=== PATIENT | male | born 1940 | race Caucasian/White ===

== ENCOUNTER → 2017-03-20 | Emergency (ER) | payer MEDICARE, OTHER, SELFPAY | PROVIDERS: Emergency Provider Emergency Medicine; Family Provider Emergency Medicine; Visit Provider Emergency Medicine | DX: R30.0 Dysuria (principal); I25.2 Old myocardial infarction; Z95.1 Presence of aortocoronary bypass graft; I10 Essential (primary) hypertension; Z87.891 Personal history of nicotine dependence; Z79.02 Long term (current) use of antithrombotics/antiplatelets; Z79.82 Long term (current) use of aspirin; Z79.899 Other long term (current) drug therapy | CPT/HCPCS: 81001; 87086; 99282 ==

== ENCOUNTER 2017-05-01 05:46 | Inpatient (IN) | payer MEDICARE, OTHER, SELFPAY ==
[2017-05-01] VITALS (22 sets, daily range): BP systolic 108–152; BP diastolic 60–90; PULSE 50–111; RESP 17–26; TEMP 36.4–36.9; O2SAT 92–100; BMI 21.8; BMI 20.7
--- NOTE | 2017-05-01 05:54 | XR_ITS ---
XR chest 2V HISTORY: Shortness of air ITS.REASON: SOA ORDERING PHYSICIAN: Brian Atkinson MD PATIENT AGE: 77 years COMPARISON: 07/02/2016, 1216 FINDINGS: There has been a prior median sternotomy with CABG with bipolar pacemaker present. There is borderline cardiomegaly and pulmonary vessels are slightly prominent. Curly B lines are present suggesting mild CHF.. There is diffuse prominence of interstitial markings consistent with diffuse interstitial lung disease with chronic blunting of the left CP angle. There is mild thickening of the minor and major fissure as seen on the lateral view. Chronic changes are present in the left lower lobe posteriorly. In addition, there is increased density in the right middle lobe suspicious for superimposed pneumonia. IMPRESSION: 1. Chronic pleural parenchymal and interstitial changes with possible superimposed CHF. 2. Right middle lobe infiltrate/pneumonia
--- NOTE | 2017-05-01 06:20 | HMH.EDSOB ---
ED Disposition Clinical Impression: Acute exacerbation of chronic obstructive airways disease Community acquired pneumonia Qualifiers: Laterality: right Lung location: lower lobe of lung Qualified Code(s): J18.1 - Lobar pneumonia, unspecified organism Disposition: Admitted as Observation Condition on Discharge: Good - Critical Care Critical Care Time: No Attestation: On 05/01/17, the high probability of a clinically significant, sudden or life threatening deterioration of the following system(s) required my full and direct attention, intervention and personal management. The time I documented below is in addition to time spent performing reported procedures but includes the following listed in this critical care notation. Medical Decision Making - Medical Records Medical records reviewed: Yes: I reviewed the patient's medical records. Vital Signs: 05/01/17 05:46 Temperature 98.0 F Temperature Source Oral Pulse Rate [Right Brachial] 111 H Respiratory Rate 26 H Blood Pressure [Right Arm] 152/90 Blood Pressure Mean [Right Arm] 110 Blood Pressure Source [Right Arm] Automatic Cuff Blood Pressure Position [Right Arm] Supine 02 Sat by Pulse Oximetry 99 Oxygen Delivery Method Nasal Cannula Oxygen Flow Rate (LPM) 4 - Lab Data Lab results reviewed: Yes: I reviewed the patient's lab results. Lab Results 05/01/17 05:30: Troponin I 0.07 H 05/01/17 06:11: WBC 10.4, RBC 5.05, Hgb 13.2 L, Hct 43.2, MCV 85.5, MCH 26.1 L, MCHC 30.5 L, RDW 14.7, Plt Count 373, MPV 7.9, Neut % (Auto) 83.3 H, Lymph % (Auto) 10.3, Berg[place] % (Auto) 6.0, Eos % (Auto) 0.2, Baso % (Auto) 0.2, Neut # (Auto) 8.6 H, Lymph # (Auto) 1.1, Bergen # (Auto) 0.6, Eos # (Auto) 0.0, Baso # (Auto) 0.0 05/01/17 06:11: Sodium 139, Potassium 4.6, Chloride 102, Carbon Dioxide 29, Anion Gap 12.6, BUN 29 H, Creatinine 0.99, Estimated Creat Clear 60, Estimated GFR 73, Est GFR ( Amer) 89, Glucose 149 H, Calcium 8.7, Total Bilirubin 0.4, AST 37, ALT 37, Alkaline Phosphatase 87, Total Protein 7.5, Albumin 3.3 L, Globulin 4.2 H, Albumin/Globulin Ratio 0.8 L 05/01/17 06:11: Lactic Acid 1.7 Result diagrams: 05/01/17 06:11 05/01/17 06:11 Orders (Tests/Meds): ED MEDICATIONS Generic Name Dose Route Start Last Admin Trade Name Freq PRN Reason Stop Dose Admin Ceftriaxone Sodium 1 gm/ 50 mls @ 100 mls/hr 05/01/17 06:31 Sodium Chloride IV 05/01/17 07:00 ONCE ONE Discontinued Medications Generic Name Dose Route Start Last Admin Trade Name Freq PRN Reason Stop Dose Admin Albuterol/Ipratropium 3 ml 05/01/17 05:55 Duoneb 3ml Neb IH 05/01/17 05:56 ONCE ONE Furosemide 40 mg 05/01/17 06:32 Lasix 40mg/4ml Vial IV 05/01/17 06:33 ONCE ONE Azithromycin 500 mg/ Sodium 250 mls @ 250 mls/hr 05/01/17 06:32 Chloride IV 05/01/17 06:33 ONCE ONE Protocol Methylprednisolone Sodium Succinate 125 mg 05/01/17 06:31 Solu-Medrol 125mg/2ml Vial IV 05/01/17 06:32 ONCE ONE ORDERS Category Date Time Status XR chest 2V Stat Exams 05/01/17 05:54 Taken Digoxin Stat Lab 05/01/17 06:00 Received Upper Respiratory Panel, PCR Stat Lab 05/01/17 06:30 Received Blood Culture Stat Micro 05/01/17 06:11 Received - Radiology Data #1 Image(s): Chest Image Reviewed: Yes I reviewed the patient's radiology image Preliminary Findings: Abnormal (cap/chf) - ECG Data Tracing #1 I reviewed this ECG and interpreted as documented below: Arrhythmias present: sinus tach Ischemic changes: non-specific ST-T wave changes - Juan Inquiry Pt receiving controlled substance: No Resp/SOB HPI - General Chief Complaint: Shortness of Breath/Dyspnea Stated Complaint: SOA Time Seen by Provider: 05/01/17 06:20 Mode of Arrival: EMS Source of Information: Patient, EMS, Medical Record Limitations: No Limitations Description of Symptoms (Recalled from ER Triage Doc. by RN): SOA, RAN OUT OF NEBULIZER M
[2017-05-01 06:23] LABS: Basophils % 0.2 % (0.1-2.0); Eosinophils % 0.2 % (0.1-12.0); Hematocrit 43.2 % (42.0-52.0); Hemoglobin 13.2 g/dL (14.1-18.0); Lymphocytes # 1.1 K/mm3 (0.7-4.5); Lymphocytes % 10.3 K/mm3 (10-50); Mean Corpuscular HGB Conc 30.5 g/dL (31.8-35.4); Mean Corpuscular Hemoglobin 26.1 pg (27.0-31.2); Mean Corpuscular Volume 85.5 fl (80-94); Mean Platelet Volume 7.9 fl (7.4-10.4); Monocytes # 0.6 K/mm3 (0.1-1.0); Neutrophils # 8.6 K/mm3 (1.8-7.8); Neutrophils % 83.3 % (37.0-80.0); Platelet Count 373 K/mm3 (142-424); Red Blood Count 5.05 M/mm3 (4.60-6.20); Red Cell Distribution Width 14.7 % (11.5-17.5); White Blood Count 10.4 K/mm3 (4.8-10.8)
[2017-05-01 06:33] LABS: Alanine Aminotransferase 37 U/L (12-78); Albumin Level 3.3 gm/dL (3.4-5.0); Albumin/Globulin Ratio 0.8 (1.1-1.8); Alkaline Phosphatase 87 U/L (46-116); Anion Gap 12.6 mEq/L (5-15); Aspartate Amino Transferase 37 U/L (15-37); Bilirubin,Total 0.4 mg/dL (0.2-1.0); Blood Urea Nitrogen 29 mg/dL (7-18); Calcium 8.7 mg/dL (8.5-10.1); Carbon Dioxide 29 mmol/L (21.0-32.0); Chloride 102 mmol/L (98-107); Creatinine Clearance Estimated 60 mL/min (0-300); Creatinine,Serum 0.99 mg/dL (0.70-1.30); Estimated Glomerular Filt Rate 73 ml/min (>60); GFR (African American) 89 ML/MIN (>60); Globulin 4.2 gm/dl (1.3-3.2); Glucose 149 mg/dL (74-106); Potassium 4.6 mmoL/L (3.5-5.1); Sodium 139 mmol/L (136-145); Total Protein,Serum 7.5 gm/dL (6.4-8.2)
[2017-05-01 06:36] LABS: Adenovirus,PCR Not Detected (NotDetected); Bordetella Pertussis Not Detected (NotDetected); Chlamydophila Pneumoniae, PCR Not Detected (NotDetected); Coronavirus 229E Not Detected (NotDetected); Coronavirus NL63 Not Detected (NotDetected); Coronavirus OC43 Not Detected (NotDetected); Coronovirus HKU1,PCR Not Detected (NotDetected); Human Metapneumovirus Not Detected (NotDetected); Influenza A, PCR Not Detected (NotDetected); Influenza AH1, 2009 Not Detected (NotDetected); Influenza AH1, PCR Not Detected (NotDetected); Influenza AH3,PCR Not Detected (NotDetected); Influenza B, PCR Not Detected (NotDetected); Mycoplasma Pneumoniae, PCR Not Detected (NotDected); Parainfluenza 1, PCR Not Detected (NotDetected); Parainfluenza 2, PCR Not Detected (NotDetected); Parainfluenza 3, PCR Not Detected (NotDetected); Parainfluenza 4, PCR Not Detected (NotDetected); Respiratory Syncytial Virus Not Detected (NotDetected); Rhinovirus/Enterovirus Not Detected (NotDetected)
[2017-05-01 06:36] LABS: Lactic Acid 1.7 mmol/L (0.4-2.0)
[2017-05-01 06:40] LABS: Troponin I 0.07 ng/ml (0.00-0.06)
[2017-05-01 08:14] LABS: Troponin I 0.17 ng/ml (0.00-0.06)
--- NOTE | 2017-05-01 08:21 | HMH.HP ---
*Admission Date: 05/01/17 *Chief complaint: sob *History of present illness: this wm was seen by pcp in office and treated as op with copd with bronchitis - pt took meds but continued to have sx with cough and sob with some element of chest pain - pt was seen in the ed and noted to have abd cxr and was admitted [facility] History I have reviewed the patient's past medical history: Yes Medical History: Reports:: Chronic Obstructive Pulmonary Disease (COPD), Coronary Artery Disease, Hyperlipidemia, Internal Pacemaker Denies:: Diabetes Mellitus Type 1, Diabetes Mellitus Type 2 Other Surgeries: Yes: Appendectomy, Pacemaker, Other Amputation: No Fractures: No - *Social History Educational Level: Attended High School Smoking Status: Former smoker Tobacco Type: cigarettes #Yrs smoked (if former smoker): 30 Smoking End Date: 6 MONTHS Alcohol Intake: never Substance Use Type: denies use Occupational Status: retired Housing: house Household Members: spouse - Psychiatric History Expresses thoughts of harming self/others: None Suicide Plan Description: No Plan *Family Hx:: Non-contributory Review of Systems - Review of Systems Review of systems:: pertinent systems reviewed and negative unless documented below - Constitutional Reports fatigue, Reports lack of energy - Eyes Denies change in vision - ENT Reports dry mouth, Denies sore throat - *Cardiovascular Reports chest pain at rest, Reports shortness of breath - *Respiratory Reports cough, Denies coughing up blood - *Gastrointestinal Denies abdominal pain - *Genitourinary Denies blood in urine - *Musculoskeletal Reports joint pain, Denies joint swelling - Integumentary/Breasts Denies rash - *Neurologic Reports weakness, Denies seizure-like activity - Psychiatric Denies depression Meds Home Medications Medication Instructions Recorded Confirmed Type aspirin 81 mg tablet,delayed 81 mg PO DAILY 04/12/17 05/01/17 History release atorvastatin 80 mg tablet 80 mg PO QDAY 04/12/17 History carvedilol 6.25 mg tablet 6.25 mg PO BID 04/12/17 History cetirizine 10 mg capsule 10 mg PO QDAY cap 04/12/17 History clopidogrel 75 mg tablet 75 mg PO QDAY 04/12/17 History digoxin 125 mcg tablet 125 mcg PO DAILY 04/12/17 05/01/17 History furosemide 40 mg tablet 40 mg PO DAILY 04/12/17 05/01/17 History losartan 100 mg tablet 100 mg PO QDAY 04/12/17 History montelukast 10 mg tablet 10 mg PO QPM 04/12/17 History nitroglycerin 0.4 mg sublingual 0.4 mg SUBLINGUAL Q5M PRN 04/12/17 History tablet oxybutynin chloride 5 mg tablet 5 mg PO DAILY 04/12/17 05/01/17 History pantoprazole 40 mg tablet,delayed 40 mg PO QDAY 04/12/17 History release ranitidine 150 mg tablet 150 mg PO BID tab 04/12/17 History ropinirole 0.5 mg tablet 0.5 mg PO PM 04/12/17 05/01/17 History tamsulosin 0.4 mg capsule 0.4 mg PO DAILY 04/12/17 05/01/17 History Hydrocodone/Acetaminophen 10 - 325 mg PO Q6HP PRN 05/01/17 05/01/17 History [Hydrocodon-Acetaminophn 10-325] Allergies Allergy/AdvReac Type Severity Reaction Status Date / Time morphine [MORPHINE] Allergy Unknown Verified 05/01/17 05:53 Exam Vital signs and Labs for Last 24 Hours: Temp Pulse Resp BP Pulse Ox 98.4 F 50 L 22 135/84 92 L 05/01/17 07:37 05/01/17 07:37 05/01/17 07:37 05/01/17 07:37 05/01/17 07:37 I & O for Last 24 hours: Intake & Output 04/28/17 04/29/17 04/30/17 05/01/17 11:59 11:59 11:59 11:59 Weight 140 lb 2 oz - Constitutional no acute distress - *Routine HEENT Exam Head: Present: normocephalic, atraumatic Eye: Present: EOMI, PERRL. Absent: conjunctival icterus ENT: Present: mucous membranes dry - *Routine Neck Exam Present: supple. Absent: JVD - *Routine Respiratory Exam Present: rhonchi, wheezes. Absent: respiratory distress - *Routine Cardiovascular Exam Present: RRR, murmur, S4, tachycardia. Absent: JVD - *Routine Abdominal Exam Present: soft.
[2017-05-01 10:50] LABS: Troponin I 0.33 ng/ml (0.00-0.06)
[2017-05-01 13:50] LABS: Troponin I 0.57 ng/ml (0.00-0.06)
--- NOTE | 2017-05-01 14:15 | HMH.PHAVTE ---
[facility] Pharmacy VTE Monitoring - Patient Demographics Admission date: 05/01/17 Report Date: 05/01/17 Time: 14:15 Allergies/Adverse Reactions: Patient Allergies morphine [MORPHINE] Allergy (Unknown, Verified 05/01/17 05:53) Height: 1.75 m Weight: 63.56 kg Patient Problems: Current Active Problems Community acquired pneumonia (Acute) Acute exacerbation of chronic obstructive airways disease (Acute) - VTE Risk Labs: VTE Related Lab Results Hgb 13.2 g/dL (14.1-18.0) L 05/01/17 06:11 Hct 43.2 % (42.0-52.0) 05/01/17 06:11 Plt Count 373 K/mm3 (142-424) 05/01/17 06:11 BUN 29 mg/dL (7-18) H 05/01/17 06:11 Creatinine 0.99 mg/dL (0.70-1.30) 05/01/17 06:11 Estimated Creat Clear 60 mL/min (0-300) 05/01/17 06:11 Was VTE Risk Assessment Performed: Yes VTE Score: 4 VTE Risk Level: Low Risk - Prophylaxis VTE Prophylaxis Ordered?: Yes Types of VTE Prophylaxis: TEDS Knee High Location of Applied Device: Bilateral Lower Extremeties
--- NOTE | 2017-05-01 14:16 | IR_ITS ---
CARDIAC CATHETERIZATION DATE OF CATHETERIZATION:05/01/2017 2:19 PM PROCEDURES: 1. Left heart catheterization 2. Left ventriculogram 3. Selective coronary angiogram 4. Selective engagement of the saphenous vein graft to the circumflex artery 5. Selective engagement of the saphenous vein graft to the right coronary artery 6. Drug-eluting stent deployment to the saphenous vein graft supplying the dominant right coronary artery INDICATION FOR TEST: 1. Acute non-ST elevation myocardial infarction 2. Coronary artery disease 3. History of coronary bypass surgery Informed consent was obtained prior to the procedure. COMPLICATIONS: None ESTIMATED BLOOD LOSS: Less than 10 ml. TECHNIQUE: One percent lidocaine used to anesthetize the right anterior aspect of the wrist. The right radial artery was accessed via the Seldinger technique. A 6 Guinean sheath was placed in the right radial artery. 2.5 mg of verapamil, 800 mcg of nitroglycerin and 5000 U Heparin were given through the arterial sheath. The trap catheter was also used to perform left heart catheterization left ventriculogram and selective coronary angiogram. The same catheter was used to cannulate the 2 saphenous vein grafts. At the end of the diagnostic angiogram and additional 2000 units of heparin was administered intravenously producing an ACT of 349 seconds. An NoiseFree right guide catheter was used intubate the saphenous vein graft to the right coronary artery and a BMW wire was placed distally. A 3.5 x 8 mm resolute Irvin stent was deployed at 22 debbie reducing the 80-90% concentric stenosis to 0%. KEENA-3 flow was present before and after the procedure. At the end of the procedure the sheath was removed good hemostasis was achieved using TR banding patient transferred the postop holding area in stable condition ANGIOGRAPHIC RESULTS: 1. The left main artery normal 2. The left anterior descending artery is occluded after a first septal concrete pile driver operator and first small diagonal artery 3. The circumflex artery is nondominant and has proximal to mid vessel 30% stenoses 4. The right coronary artery dominant vessel and proximally occluded 5. The MCGEE ventriculogram reveals severe left ventricular dilatation with an akinetic aneurysmal anterior wall cement ejection fraction is 20% 6. The left ventricular end-diastolic pressure 20 mmHg 7. The COURTNEY was not engaged but was known to be patent with slow flow supplying an aneurysmal akinetic anterior wall 8. The saphenous vein graft to the circumflex artery was ostially occluded 9. The saphenous vein graft to the dominant right coronary artery has proximal 20% stenoses followed by a stent which has a proximal concentric 40% stenosis and a distal 80% concentric stenosis representing in-stent restenosis. Distally the posterior descending artery and posterior lateral ventricular branch are large branches and patent IMPRESSION: 1. Coronary artery disease as described above coronary arteries. 2. Successful stenting of the saphenous vein graft to the right coronary artery severe disease reduced to 0% with 1 drug-eluting stent 3. 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 Severely reduced ejection fraction PLAN: 1. Aspirin Plavix 2. Avoidance of tobacco products 3. LDL less than 55 4. Date of therapy for systolic heart failure 5. Cardiac Rehabilitation
[2017-05-01 15:32] LABS: CATHL Activated Clotting Time 349 SEC (74-125)
[2017-05-01 19:38] LABS: Troponin I 0.81 ng/ml (0.00-0.06)
[2017-05-01 23:14] LABS: Troponin I 0.76 ng/ml (0.00-0.06)
[2017-05-02] VITALS (25 sets, daily range): BP systolic 109–132; BP diastolic 52–73; PULSE 67–93; RESP 15–23; TEMP 36.6–37.3; O2SAT 90–100
--- NOTE | 2017-05-02 03:15 | PC.NURSE ---
PT HAS RESTED WELL THIS SHIFT. HAS NOT C/O ANY SOA. PT IS ON ROOM AIR AT THIS TIME WITH SATS OF MID TO UPPER 90S. PT HAS OCCASIONAL DROP IN O2 SAT, BUT RECOVERS WITHOUT DIFFICULTY. LUNGS NOTED TO HAVE WHEEZING AND RHONCHI T/O. PT REMAINS ON TELEMETRY. PACER SPIKES VISIBLE AT TIMES. OCCASIONAL PVC'S AND PAC'S NOTED. PT APPEARS TO BE JUNCTIONAL @ TIMES. CATH SITE TO (R) RADIAL. DRESSING C/D/I. V/S HAVE REMAINED STABLE. NO OTHER CONCERNS AT THIS TIME. WILL CONTINUE TO MONITOR.
[2017-05-02 06:21] LABS: Eosinophils % 0.4 % (0.1-12.0); Hematocrit 36.3 % (42.0-52.0); Lymphocytes # 0.4 K/mm3 (0.7-4.5); Lymphocytes % 5.8 K/mm3 (10-50); Mean Corpuscular HGB Conc 31.1 g/dL (31.8-35.4); Mean Corpuscular Hemoglobin 25.7 pg (27.0-31.2); Mean Corpuscular Volume 82.9 fl (80-94); Mean Platelet Volume 7.9 fl (7.4-10.4); Monocytes # 0.3 K/mm3 (0.1-1.0); Monocytes % 3.5 % (1.7-9.3); Neutrophils # 6.3 K/mm3 (1.8-7.8); Neutrophils % 90.3 % (37.0-80.0); Platelet Count 279 K/mm3 (142-424); Red Blood Count 4.37 M/mm3 (4.60-6.20); Red Cell Distribution Width 14.9 % (11.5-17.5)
[2017-05-02 06:32] LABS: Hemoglobin 11.3 g/dL (14.1-18.0)
[2017-05-02 06:34] LABS: MANUAL DIFFERENTIAL MANUAL DIFFERENTIAL (MANUAL DIFF)
[2017-05-02 06:40] LABS: Anion Gap 8.8 mEq/L (5-15); Blood Urea Nitrogen 34 mg/dL (7-18); Carbon Dioxide 33 mmol/L (21.0-32.0); Chloride 106 mmol/L (98-107); Creatinine Clearance Estimated 56 mL/min (0-300); Creatinine,Serum 0.71 mg/dL (0.70-1.30); Estimated Glomerular Filt Rate 108 ml/min (>60); GFR (African American) 131 ML/MIN (>60); Glucose 122 mg/dL (74-106); Potassium 3.8 mmoL/L (3.5-5.1); Sodium 144 mmol/L (136-145)
[2017-05-02 06:57] LABS: Anisocytosis 1+; Hypochromasia 2+; Lymphocytes % 5 % (10-50); Neutrophils % 90 % (42-76); Platelet Estimate Normal; Poikilocytosis 1+; Polychromasia 2+; Rouleaux 1+; Total Cells Counted 100
--- NOTE | 2017-05-02 08:51 | P.PN_ITS ---
Internal Medicine - PN: Subj *Date: 05/02/17 *Time: 08:48 Interval history: doing better this am - had stent yesterday Exam Vital signs and Labs for Last 24 Hours: Temp Pulse Resp BP Pulse Ox 98 F 84 22 131/69 100 05/02/17 08:00 05/02/17 08:00 05/02/17 08:00 05/02/17 08:00 05/02/17 08:00 Laboratory Results - last 24 hr 05/01/17 10:16: Troponin I 0.33 H 05/01/17 13:20: Troponin I 0.57 H 05/01/17 15:09: Activated Clotting Time 349 H* 05/01/17 18:57: Troponin I 0.81 H 05/01/17 22:02: Troponin I 0.76 H 05/02/17 05:40: WBC 7.0 D, RBC 4.37 L, Hgb 11.3 L D, Hct 36.3 L, MCV 82.9, MCH 25.7 L, MCHC 31.1 L, RDW 14.9, Plt Count 279 D, MPV 7.9, Neut % (Auto) 90.3 H, Lymph % (Auto) 5.8 L, Tillman % (Auto) 3.5, Eos % (Auto) 0.4, Baso % (Auto) 0.0 L, Neut # (Auto) 6.3, Lymph # (Auto) 0.4 L, Tillman # (Auto) 0.3, Eos # (Auto) 0.0, Baso # (Auto) 0.0, Total Counted 100, Neutrophils % (Manual) 90 H, Band Neutrophils % 5.0, Lymphocytes % (Manual) 5 L, Platelet Estimate Normal, Polychromasia 2+, Hypochromasia 2+, Poikilocytosis 1+, Anisocytosis 1+, Rouleaux 1+ 05/02/17 05:40: Sodium 144, Potassium 3.8, Chloride 106, Carbon Dioxide 33 H, Anion Gap 8.8, BUN 34 H, Creatinine 0.71 D, Estimated Creat Clear 56, Estimated GFR 108, Est GFR ( Amer) 131 D, Glucose 122 H I & O for Last 24 hours: Intake & Output 01/25/18 01/26/18 01/27/18 01/28/18 11:59 11:59 11:59 11:59 Intake Total 1804 / 1804 Output Total 750 / 750 650 / 650 Balance -750 / -750 1154 / 1154 Weight 140 lb 2.013 oz 141 lb 3 oz - Constitutional no acute distress - *Routine HEENT Exam Head: Present: normocephalic Eye: Present: EOMI, PERRL ENT: Present: mucous membranes dry - *Routine Neck Exam Absent: JVD - *Routine Respiratory Exam Present: wheezes. Absent: respiratory distress - *Routine Cardiovascular Exam Present: murmur - *Routine Abdominal Exam Present: soft - *Routine Extremities Exam Present: full ROM - *Routine Skin Exam Present: intact - *Routine Neurological Exam Present: alert, oriented X3, CN II-XII intact - Routine Psychiatric Exam Present: normal affect Assessment and Plan (1) Community acquired pneumonia Current visit: Yes Status: Acute Qualifiers: Laterality: right Lung location: lower lobe of lung Qualified Code(s): J18.1 - Lobar pneumonia, unspecified organism Category: Medical Code(s): J18.9 - Pneumonia, unspecified organism (2) Acute exacerbation of chronic obstructive airways disease Current visit: Yes Status: Acute Category: Medical Code(s): J44.1 - Chronic obstructive pulmonary disease with (acute) exacerbation (3) Non-STEMI (non-ST elevated myocardial infarction) Current visit: Yes Status: Acute Category: Medical Code(s): I21.4 - Non- ST elevation (NSTEMI) myocardial infarction
--- NOTE | 2017-05-02 19:24 | PC.NURSE ---
PATIENT HAS BEEN RESTING IN BED T/O SHIFT. VSS , DENIES PAIN AT THIS TIME. CALL LIGHT WITHIN REACH WILL CONTINUE TO MONITOR
[2017-05-03] VITALS (17 sets, daily range): BP systolic 100–137; BP diastolic 56–77; PULSE 60–106; RESP 19–22; TEMP 36.3–36.9; O2SAT 88–100; BMI 20.2
--- NOTE | 2017-05-03 04:04 | XR_ITS ---
XR chest portable Ordering Physician: Brian Atkinson MD Patient Age: 77 years: Male HISTORY: ITS.REASON: chest pain . Recent pacemaker placement TECHNIQUE: AP portable supine chest short of breath chest pain recent heart catheter. COMPARISON : PA & lateral chest 05/01/2017 FINDINGS. Right chest On today's chest subtle additional density noted throughout the right midlung towards right base. Suspect mild diffuse airspace disease superimposed upon mild chronic changes here. Fluid along the major fissure. Contribute to this appearance is well and no blunting right CP angle reflecting small pleural effusion Septal lines are slightly more evident at the periphery the right lung base which may reflect this infiltrate or possibly mild underlying CHF. There are small bilateral pleural effusions left more evident than right. Left chest coarsening markings towards left base similar to previous study. Blunting left CP angle reflecting chronic pleural changes and possibly with small left pleural effusion as well but pleural calcification again noted. Long-standing, as seen nicely on previous May 2016 CT chest. Underlying COPD.. Heart is upper normal in size. There is suggestion of overlying likely A ED , with monitoring &/ defibrillator padsNoted. Pacemaker overlies left chest with atrial and ventricular leads intact and unchanged since 05/01/2017. Clips at the left upper chest may reflect recent pacemaker placement. . Sternotomy from prior CABG IMPRESSION. Underlying COPD and chronic changes bilateral. Slight increased density right midlung towards right base, may reflect subtle airspace disease superimposed upon chronic changes. Fluid along the major could also contribute this density. Again note septal lines particularly towards the right lung base could reflect mild interstitial pulmonary edema versus minimal interstitial infiltrate Coarse markings LLL / left lung base, similar to yesterday's study. Chronic changes with with possible mild superimposed infiltrate Small bilateral pleural effusions.
[2017-05-03 04:33] LABS: Eosinophils % 0.3 % (0.1-12.0); Hematocrit 43.7 % (42.0-52.0); Lymphocytes % 9.9 K/mm3 (10-50); Mean Corpuscular HGB Conc 30.5 g/dL (31.8-35.4); Mean Corpuscular Hemoglobin 25.9 pg (27.0-31.2); Mean Corpuscular Volume 84.8 fl (80-94); Mean Platelet Volume 7.9 fl (7.4-10.4); Monocytes # 0.5 K/mm3 (0.1-1.0); Monocytes % 4.9 % (1.7-9.3); Neutrophils # 8.5 K/mm3 (1.8-7.8); Neutrophils % 84.9 % (37.0-80.0); Platelet Count 374 K/mm3 (142-424); Red Blood Count 5.15 M/mm3 (4.60-6.20); Red Cell Distribution Width 14.8 % (11.5-17.5)
[2017-05-03 04:35] LABS: Hemoglobin 13.3 g/dL (14.1-18.0)
--- NOTE | 2017-05-03 04:35 | HMH.RR ---
Acute Rapid Response Note - Subjective Date Responded: 05/03/17 Time Responded: 04:35 Provider Note: Rapid response called due to respiratory distress. Nurse reports that at 345 she noticed the patient having labored respirations with accessory muscle use, tachypnea, tachycardia, and duskiness. He was placed on a nonrebreather mask. The patient reports that he has some discomfort in his left lower anterior chest when he lays in certain directions. He denies any other pain. He is already being treated for pneumonia and CHF. He just had cardiac stent placed yesterday. Respiratory therapist reports his last nebulizer treatment was at 9 PM. The patient is tachypneic with accessory muscle use. He is on a nonrebreather mask with a pulse oximetry of 98%. Heart rate is in the 120s and 130s. youth nutritional monitor shows sinus tachycardia with premature contractions, probable PACs. He is awake and alert and answers questions appropriately. Lungs have rhonchi. Heart is tachycardic with no definite murmurs. EKG shows sinus tachycardia with premature atrial contractions. Nonspecific ST-T wave changes. Negative for STEMI. Chest x-ray shows persistence of right middle lobe infiltrate, slight interval worsening from May 01. Curly B-lines and interstitial markings consistent with congestive heart failure, slightly worse than May 01. Chronic scarring at the left base. I discussed the case with Dr. Atkinson. The patient will be given a dose of Lovenox to cover for the possibility of pulmonary embolism. He is already on treatment for pneumonia. He will be given a one-time dose of Lasix 80 mg IV. Laboratories, arterial blood gases ordered. Dr. Atkinson states that he will address the possibility of a CT angiogram of the chest later in the morning. Nebulizer treatment ordered as well. - Objective Findings: Vital Signs - Last 4 Hours Temperature 97.4 F L 05/03/17 00:00 Temperature Source Oral 05/03/17 00:00 Pulse Rate 79 05/03/17 00:00 Respiratory Rate 20 05/03/17 00:00 Blood Pressure 127/67 05/03/17 00:00 Blood Pressure Mean 87 05/03/17 00:00 Blood Pressure Source Automatic Cuff 05/03/17 00:00 Blood Pressure Position Supine 05/03/17 00:00 02 Sat by Pulse Oximetry 88 L 05/03/17 03:28 Oxygen Delivery Method 05/03/17 03:28 Oxygen Flow Rate (LPM) 3 05/03/17 02:00 My Orders Category Date Time Status Comprehensive Metabolic Panel Stat Lab 05/03/17 04:15 Received Rapid Response Exam - General General appearance: alert, in no apparent distress
--- NOTE | 2017-05-03 04:39 | P.PN_ITS ---
Acute Rapid Response Note - Subjective Date Responded: 05/03/17 Time Responded: 04:35 Provider Note: Rapid response called due to respiratory distress. Nurse reports that at 345 she noticed the patient having labored respirations with accessory muscle use, tachypnea, tachycardia, and duskiness. He was placed on a nonrebreather mask. The patient reports that he has some discomfort in his left lower anterior chest when he lays in certain directions. He denies any other pain. He is already being treated for pneumonia and CHF. He just had cardiac stent placed yesterday. Respiratory therapist reports his last nebulizer treatment was at 9 PM. The patient is tachypneic with accessory muscle use. He is on a nonrebreather mask with a pulse oximetry of 98%. Heart rate is in the 120s and 130s. court monitor shows sinus tachycardia with premature contractions, probable PACs. He is awake and alert and answers questions appropriately. Lungs have rhonchi. Heart is tachycardic with no definite murmurs. EKG shows sinus tachycardia with premature atrial contractions. Nonspecific ST- T wave changes. Negative for STEMI. Chest x-ray shows persistence of right middle lobe infiltrate, slight interval worsening from May 01. Curly B-lines and interstitial markings consistent with congestive heart failure, slightly worse than May 01. Chronic scarring at the left base. I discussed the case with Dr. Atkinson. The patient will be given a dose of Lovenox to cover for the possibility of pulmonary embolism. He is already on treatment for pneumonia. He will be given a one-time dose of Lasix 80 mg IV. Laboratories, arterial blood gases ordered. Dr. Atkinson states that he will address the possibility of a CT angiogram of the chest later in the morning. Nebulizer treatment ordered as well. - Objective Findings: Vital Signs - Last 4 Hours Temperature 97.4 F L 05/03/17 00:00 Temperature Source Oral 05/03/17 00:00 Pulse Rate 79 05/03/17 00:00 Respiratory Rate 20 05/03/17 00:00 Blood Pressure 127/67 05/03/17 00:00 Blood Pressure Mean 87 05/03/17 00:00 Blood Pressure Source Automatic Cuff 05/03/17 00:00 Blood Pressure Position Supine 05/03/17 00:00 02 Sat by Pulse Oximetry 88 L 05/03/17 03:28 Oxygen Delivery Method 05/03/17 03:28 Oxygen Flow Rate (LPM) 3 05/03/17 02:00 My Orders 3 Category Date Time Status Comprehensive Metabolic Panel Stat Lab 05/03/17 04:15 Received Rapid Response Exam - General General appearance: alert, in no apparent distress
[2017-05-03 04:48] LABS: ABG Base Excess 5.3 mmol/L (-2.4-2.3); ABG HCO3 31.3 mmhg (22.0-26.0); ABG Oxygen Saturation 97 % (90-100); ABG PH 7.33 mmol/L (7.35-7.45); ABG PO2 104.2 mmhg (80-100); ABG TCO2 33.2 mmhg (23-27)
[2017-05-03 04:54] LABS: Anion Gap 8.4 mEq/L (5-15); Bilirubin,Total 0.4 mg/dL (0.2-1.0); Blood Urea Nitrogen 35 mg/dL (7-18); CKMB Relative Index 3.4 U/L (0-4.0); Calcium 7.9 mg/dL (8.5-10.1); Carbon Dioxide 35 mmol/L (21.0-32.0); Chloride 104 mmol/L (98-107); Creatine Kinase 82 U/L (39-308); Creatine Kinase MB 2.8 mg/ml (0.0-3.6); Creatinine Clearance Estimated 57 mL/min (0-300); Estimated Glomerular Filt Rate 94 ml/min (>60); GFR (African American) 114 ML/MIN (>60); Potassium 4.4 mmoL/L (3.5-5.1); Sodium 143 mmol/L (136-145); Troponin I 0.33 ng/ml (0.00-0.06)
[2017-05-03 04:55] LABS: Alanine Aminotransferase 39 U/L (12-78); Albumin Level 3.1 gm/dL (3.4-5.0); Albumin/Globulin Ratio 0.8 (1.1-1.8); Alkaline Phosphatase 80 U/L (46-116); Aspartate Amino Transferase 22 U/L (15-37); Total Protein,Serum 7.1 gm/dL (6.4-8.2)
[2017-05-03 05:07] LABS: Glucose 148 mg/dL (74-106)
--- NOTE | 2017-05-03 05:34 | PC.NURSE ---
pt rested brief periods this shift, denied chest pain at 1999, vss, telemetry running normal sinus, pt maintaining O2 sats at or above 90 on 3L NC, rhonchi and wheezes present in lung house, bowel sounds active. Upon reassessment at 344 pt stated he was very SOB, pt appeared pallor with mottling, skin was cool and diaphoretic, pt c/o chest pain 7/10 to the left anterior chest, pt appears very anxious and states something is not right, rapid response called at 399, team responded at 402, orders obtained and pt stabilized, pt currently on 100% non rebreather, call light in reach, will continue to monitor pt status and laboratory values.
--- NOTE | 2017-05-03 08:22 | HMH.CARDPN2 ---
Subjective PN (PG) Date: 05/03/17 Time: 08:22 Principal diagnosis: NSTEMI Interval history: 77-year-old white male with known coronary artery disease, ischemic cardio myopathy and AICD was admitted over the weekend for non-ST elevation [place] which time he underwent cardiac catheterization and stenting to saphenous vein graft to the right coronary artery. Last evening/early this a.m. the patient went into respiratory arrest with evidence of congestive heart failure. He responded well to IV Lasix and BiPAP therapy. Patient states he is breathing much better this morning BiPAP is in place. He put out over 2 L of fluid since about 2:00 this morning in response to IV Lasix. PN Exam ([facility] Owned) Vital signs: Temp Pulse Resp BP Pulse Ox 98.4 F 82 22 137/77 100 05/03/17 07:31 05/03/17 07:31 05/03/17 07:31 05/03/17 07:31 05/03/17 07:31 - Routine Neck Exam Absent: JVD - Routine Respiratory Exam Comments: Diminished breath sounds bilaterally with no appreciable rales or wheezing at this time - Routine Cardiovascular Exam Present: RRR. Absent: murmur, gallop A/P Progress Note ([facility] Owned) (1) Non-STEMI (non-ST elevated myocardial infarction) Status: Acute Current Visit: Yes (2) Chronic obstructive lung disease Status: Acute Current Visit: No (3) Stented coronary artery Status: Acute Current Visit: No (4) Systolic heart failure Status: Acute Assessment and plan: We will begin standard therapy for congestive heart failure including continuing digoxin, starting spironolactone, Coreg and COOKIE or ARB therapy. Current Visit: No (5) Coronary arteriosclerosis Status: Chronic Assessment and plan: DAPT due to ZAIRA placement. Current Visit: No
--- NOTE | 2017-05-03 08:26 | P.PN_ITS ---
Subjective PN (PG) Date: 05/03/17 Time: 08:22 Principal diagnosis: NSTEMI Interval history: 77-year-old white male with known coronary artery disease, ischemic cardio myopathy and AICD was admitted over the weekend for non-ST elevation [place] which time he underwent cardiac catheterization and stenting to saphenous vein graft to the right coronary artery. Last evening/early this a.m. the patient went into respiratory arrest with evidence of congestive heart failure. He responded well to IV Lasix and BiPAP therapy. Patient states he is breathing much better this morning BiPAP is in place. He put out over 2 L of fluid since about 2:00 this morning in response to IV Lasix. PN Exam ([facility] Owned) Vital signs: Temp Pulse Resp BP Pulse Ox 98.4 F 82 22 137/77 100 05/03/17 07:31 05/03/17 07:31 05/03/17 07:31 05/03/17 07:31 05/03/17 07:31 - Routine Neck Exam Absent: JVD - Routine Respiratory Exam Comments: Diminished breath sounds bilaterally with no appreciable rales or wheezing at this time - Routine Cardiovascular Exam Present: RRR. Absent: murmur, gallop A/P Progress Note ([facility] Owned) (1) Non-STEMI (non-ST elevated myocardial infarction) Status: Acute Current Visit: Yes (2) Chronic obstructive lung disease Status: Acute Current Visit: No (3) Stented coronary artery Status: Acute Current Visit: No (4) Systolic heart failure Status: Acute Assessment and plan: We will begin standard therapy for congestive heart failure including continuing digoxin, starting spironolactone, Coreg and COOKIE or ARB therapy. Current Visit: No (5) Coronary arteriosclerosis Status: Chronic Assessment and plan: DAPT due to ZAIRA placement. Current Visit: No
--- NOTE | 2017-05-03 10:33 | PC.NURSE ---
IN ROOM WITH MD WHEN ROUNDED. MD STATED TO TAKE PT OFF BIPAP AND TRY ROOM AIR IF PT NEEDED O2 TO APPLY. BIPAP WAS REMOVED. PT ON ROOM AIR TILL O2 SAT FELL BELOW 90. PT NOW ON 2LNC AND SAT ARE IN LOW 90'S.
[2017-05-03 11:40] LABS: ABG Base Excess 10.6 mmol/L (-2.4-2.3); ABG HCO3 34.3 mmhg (22.0-26.0); ABG Oxygen Saturation 97 % (90-100); ABG PCO2 48.8 mmhg (35.0-45.0); ABG PH 7.47 mmol/L (7.35-7.45); ABG PO2 90.7 mmhg (80-100); ABG TCO2 35.8 mmhg (23-27)
[2017-05-03 11:41] LABS: Oxygen 2 LPM %
--- NOTE | 2017-05-03 13:29 | HMH.ACPN2 ---
Internal Medicine - PN: Subj *Date: 05/03/17 *Time: 13:30 Exam Vital signs and Labs for Last 24 Hours: Temp Pulse Resp BP Pulse Ox 98.4 F 87 22 112/64 95 05/03/17 07:31 05/03/17 12:37 05/03/17 11:41 05/03/17 11:41 05/03/17 12:35 Laboratory Results - last 24 hr 05/03/17 04:15: Sodium 143, Potassium 4.4, Chloride 104, Carbon Dioxide 35 H, Anion Gap 8.4, BUN 35 H, Creatinine 0.80, Estimated Creat Clear 57, Estimated GFR 94, Est GFR ( Amer) 114, Glucose 148 H D, Calcium 7.9 L, Total Bilirubin 0.4, AST 22 D, ALT 39, Alkaline Phosphatase 80, Total Creatine Kinase 82, CK-MB (CK-2) 2.8, CK-MB (CK-2) Rel Index 3.4, Troponin I 0.33 H, Total Protein 7.1, Albumin 3.1 L, Globulin 4.0 H, Albumin/Globulin Ratio 0.8 L 05/03/17 04:15: WBC 10.0 D, RBC 5.15, Hgb 13.3 L D, Hct 43.7, MCV 84.8, MCH 25.9 L, MCHC 30.5 L, RDW 14.8, Plt Count 374 D, MPV 7.9, Neut % (Auto) 84.9 H, Lymph % (Auto) 9.9 L, [place] % (Auto) 4.9, Eos % (Auto) 0.3, Baso % (Auto) 0.0 L, Neut # (Auto) 8.5 H, Lymph # (Auto) 1.0, [place] # (Auto) 0.5, Eos # (Auto) 0.0, Baso # (Auto) 0.0 05/03/17 04:15: B-Natriuretic Peptide 1590 H 05/03/17 04:46: ABG pH 7.33 L, ABG pCO2 61.0 H, ABG pO2 104.2 H, ABG HCO3 31.3 H, ABG Total CO2 33.2 H, ABG O2 Saturation 97, ABG Base Excess 5.3 H 05/03/17 11:30: Specimen Source R. brachial, O2 % 2 lpm, ABG pH 7.47 H, ABG pCO2 48.8 H, ABG pO2 90.7, ABG HCO3 34.3 H, ABG Total CO2 35.8 H, ABG O2 Saturation 97, ABG Base Excess 10.6 H, Dustin Test N/a I & O for Last 24 hours: Intake & Output 05/01/17 05/02/17 05/03/17 05/04/17 11:59 11:59 11:59 11:59 Intake Total 1804 / 1804 800 / 800 Output Total 750 / 750 650 / 650 2825 / 2825 Balance -750 / -750 1154 / 1154 -2024 / -2024 Weight 140 lb 2.013 oz 141 lb 3 oz 137 lb 1 oz - Constitutional no acute distress - *Routine HEENT Exam Head: Present: normocephalic Eye: Present: PERRL ENT: Present: mucous membranes moist - *Routine Neck Exam Present: supple, full ROM - *Routine Respiratory Exam Present: wheezes, diminished air movement - *Routine Cardiovascular Exam Present: RRR - *Routine Abdominal Exam Present: soft - *Routine Extremities Exam Present: full ROM - *Routine Skin Exam Present: intact, dry - *Routine Neurological Exam Present: alert, oriented X3 - Routine Psychiatric Exam Present: normal affect, normal thought process Assessment and Plan (1) Non-STEMI (non-ST elevated myocardial infarction) Current visit: Yes Status: Acute Category: Medical Code(s): I21.4 - Non-ST elevation (NSTEMI) myocardial infarction (2) Chronic obstructive lung disease Current visit: No Status: Acute Qualifiers: COPD type: chronic bronchitis Category: Medical Code(s): J44.9 - Chronic obstructive pulmonary disease, unspecified (3) Stented coronary artery Current visit: No Status: Acute Category: Surgical Code(s): Z95.5 - Presence of coronary angioplasty implant and graft (4) Systolic heart failure Current visit: No Status: Acute Qualifiers: Heart failure chronicity: chronic Qualified Code(s): I50.22 - Chronic systolic (congestive) heart failure Category: Medical Code(s): I50.20 - Unspecified systolic (congestive) heart failure (5) Coronary arteriosclerosis Current visit: No Status: Chronic Category: Medical Code(s): I25.10 - Atherosclerotic heart disease of [place] coronary artery without angina pectoris
--- NOTE | 2017-05-03 19:05 | PC.NURSE ---
pt has tolerated o2 nc at 2l well this shift. no changes from previous assessment. pt was up to chair throughout shift. ambulates well. call light in reach. will continue to monitor pt condition. will give report to on coming nurse.
[2017-05-04] VITALS: BP 118/58; PULSE 56; PULSE 70; RESP 17; TEMP 36.5; O2SAT 97
[2017-05-04 04:00] VITALS: BP 119/57; PULSE 67; PULSE 70; RESP 20; TEMP 36.4; O2SAT 95
--- NOTE | 2017-05-04 08:07 | PC.NURSE ---
TOLERATED 2LNC WELL. R RADIAL DRESSING NOTED CDI, NO S/S OF INFECTION. NO COMPLAINTS STATED. SLEPT WELL. VSS. WILL CONTINUE TO MONITOR.
--- NOTE | 2017-05-04 08:25 | HMH.DCSUM ---
General - General Admission date: 05/01/17 Discharge date: 05/04/17 HPI HPI: this wm was seen by pcp in office and treated as op with copd with bronchitis - pt took meds but continued to have sx with cough and sob with some element of chest pain - pt was seen in the ed and noted to have abd cxr and was admitted Objective Vital signs: Temp Pulse Resp BP Pulse Ox 97.5 F L 67 20 119/57 95 05/04/17 04:00 05/04/17 04:00 05/04/17 04:00 05/04/17 04:00 05/04/17 04:00 no acute distress - *Routine HEENT Exam Head: Present: normocephalic Eye: Present: EOMI, PERRL ENT: Present: mucous membranes dry - *Routine Neck Exam Present: supple. Absent: JVD - *Routine Respiratory Exam Present: diminished air movement. Absent: respiratory distress - *Routine Cardiovascular Exam Absent: murmur - *Routine Abdominal Exam Present: soft. Absent: tenderness, distended - *Routine Extremities Exam Present: cyanosis - *Routine Neurological Exam Present: oriented X3, CN II-XII intact - Routine Psychiatric Exam Present: normal affect Hospital Course Hospital Course: pt had episode of chest pain and had elevated troponin and had card cath by dr viramontes with stent and has been doing ok with 1 episode of chf and improved with copd and bronchial illness - Coronary artery disease as described above coronary arteries. 2. Successful stenting of the saphenous vein graft to the right coronary artery severe disease reduced to 0% with 1 drug-eluting stent 3. 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 Severely reduced ejection fraction PLAN: 1. Aspirin Plavix 2. Avoidance of tobacco products 3. LDL less than 55 4. Date of therapy for systolic heart failure 5. Cardiac Rehabilitation Results Labs on day of discharge: Labs from last 24 hours 05/03/17 11:30 Specimen Source R. brachial O2 % 2 lpm ABG pH 7.47 H ABG pCO2 48.8 H ABG pO2 90.7 ABG HCO3 34.3 H ABG Total CO2 35.8 H ABG O2 Saturation 97 ABG Base Excess 10.6 H Dustin Test N/a DS: Diagnosis - Discharge Diagnosis (1) Community acquired pneumonia Status: Acute (2) Acute exacerbation of chronic obstructive airways disease Status: Acute (3) Non-STEMI (non-ST elevated myocardial infarction) Status: Acute Meds Home Medications Medication Instructions Recorded Confirmed Type aspirin 81 mg tablet,delayed 81 mg PO DAILY 04/12/17 05/01/17 History release digoxin 125 mcg tablet 125 mcg PO DAILY 04/12/17 05/01/17 History furosemide 40 mg tablet 40 mg PO DAILY 04/12/17 05/01/17 History nitroglycerin 0.4 mg sublingual 0.4 mg SUBLINGUAL Q5M PRN 04/12/17 05/02/17 History tablet oxybutynin chloride 5 mg tablet 5 mg PO DAILY 04/12/17 05/01/17 History ropinirole 0.5 mg tablet 0.5 mg PO PM 04/12/17 05/01/17 History tamsulosin 0.4 mg capsule 0.4 mg PO DAILY 04/12/17 05/01/17 History Hydrocodone/Acetaminophen 10 - 325 mg PO Q6HP PRN 05/01/17 05/01/17 History [Hydrocodon-Acetaminophn 10-325] Allergies Allergy/AdvReac Type Severity Reaction Status Date / Time morphine [MORPHINE] Allergy Unknown Verified 05/01/17 05:53 Discharge Plan - Patient Discharge Instructions ACTIVITY: Continue current activity DIET: continue same diet - Follow up Plan Disposition: Home, Self-[facility] Medications: Home Medications Medication Instructions Recorded Confirmed Type aspirin 81 mg tablet,delayed 81 mg PO DAILY 04/12/17 05/01/17 History release digoxin 125 mcg tablet 125 mcg PO DAILY 04/12/17 05/01/17 History furosemide 40 mg tablet 40 mg PO DAILY 04/12/17 05/01/17 History nitroglycerin 0.4 mg sublingual 0.4 mg SUBLINGUAL Q5M PRN 04/12/17 05/02/17 History tablet oxybutynin chloride 5 mg tablet 5 mg PO DAILY 04/12/17
[2017-05-04 08:40] VITALS: BP 128/59; PULSE 73; RESP 20; TEMP 36.4; O2SAT 96
--- NOTE | 2017-05-04 09:49 | HMH.CARDPN2 ---
Subjective PN (PG) Date: 05/04/17 Time: 09:49 Principal diagnosis: NSTEMI Interval history: 77-year-old white male in bedside chair in no acute distress. Denies any chest pain or shortness of breath overnight. States he is going home per Dr. Atkinson today. PN Exam ([facility]ed) Vital signs: Temp Pulse Resp BP Pulse Ox 97.6 F 73 20 128/59 96 05/04/17 08:40 05/04/17 08:40 05/04/17 08:40 05/04/17 08:40 05/04/17 08:40 - Routine Respiratory Exam Comments: Improved breath sounds without rales or inspiratory wheezing. Slight end expiratory wheezing noted. - Routine Cardiovascular Exam Present: RRR, murmur A/P Progress Note ([facility]ed) (1) Non-STEMI (non-ST elevated myocardial infarction) Status: Acute Assessment and plan: Medically stable. Okay for discharge home from cardiology standpoint. Continue aspirin and Plavix therapy. We will see him back in 1-2 weeks. Current Visit: Yes (2) Chronic obstructive lung disease Status: Acute Current Visit: No (3) Stented coronary artery Status: Acute Current Visit: No (4) Systolic heart failure Status: Acute Assessment and plan: Clinically stable at this time with [place] Heart Association class III. She is on standard therapy with COOKIE inhibitor, Coreg, Lasix, digoxin, spironolactone. Current Visit: No (5) Coronary arteriosclerosis Status: Chronic Assessment and plan: Stable no chest pain. Continue dual antiplatelet therapy. Current Visit: No
--- NOTE | 2017-05-04 09:52 | P.PN_ITS ---
Subjective PN (PG) Date: 05/04/17 Time: 09:49 Principal diagnosis: NSTEMI Interval history: 77-year-old white male in bedside chair in no acute distress. Denies any chest pain or shortness of breath overnight. States he is going home per Dr. Atkinson today. PN Exam ([facility] Owned) Vital signs: Temp Pulse Resp BP Pulse Ox 97.6 F 73 20 128/59 96 05/04/17 08:40 05/04/17 08:40 05/04/17 08:40 05/04/17 08:40 05/04/17 08:40 - Routine Respiratory Exam Comments: Improved breath sounds without rales or inspiratory wheezing. Slight end expiratory wheezing noted. - Routine Cardiovascular Exam Present: RRR, murmur A/P Progress Note ([facility]ed) (1) Non-STEMI (non-ST elevated myocardial infarction) Status: Acute Assessment and plan: Medically stable. Okay for discharge home from cardiology standpoint. Continue aspirin and Plavix therapy. We will see him back in 1-2 weeks. Current Visit: Yes (2) Chronic obstructive lung disease Status: Acute Current Visit: No (3) Stented coronary artery Status: Acute Current Visit: No (4) Systolic heart failure Status: Acute Assessment and plan: Clinically stable at this time with [place] Heart Association class III. She is on standard therapy with COOKIE inhibitor, Coreg, Lasix, digoxin, spironolactone. Current Visit: No (5) Coronary arteriosclerosis Status: Chronic Assessment and plan: Stable no chest pain. Continue dual antiplatelet therapy. Current Visit: No
[2017-05-04 09:53] VITALS: PULSE 74
--- NOTE | 2017-05-04 10:09 | HMH.PTEV ---
Physical Therapy Evaluation Rehab PT IP Evaluation Start: 05/03/17 13:31 Freq: ONCE Status: Active Protocol: Document 05/04/17 09:00 HOPE (Rec: 05/04/17 10:09 PHORNE [id number]) Subjective/History History History [address] [facility] with CAP and weakness. Subjective Subjective Pt reports feeling good this am, minimal SOA with exertion. Rehab PT IP Eval Objective Appearance Patient Behavior Appropriate Patient Orientation Person Place Time Difficulty following instructions none Speech Pattern Clear Ambulation Patient Able to Ambulate Yes Ambulation Observation IP General Gait Pattern Observation No Deviations/Normal Ambulation Distance (feet) 30 Ambulation Assistive Device None Balance Ability to Arise Able, w/o using arms Sitting Balance Steady, safe Standing Balance Narrow stance w/o support Dynamic Sitting Balance Ability Normal Dynamic Standing Balance Ability Good Transfers Bed Transfer Ability Independent Chair Transfer Ability Independent Sit to Stand Bed Transfer Ability Independent Sit to Stand Chair Transfer Ability Independent ROM All Extremities PT ROM Status WFL MMT All Extremities PT MMT WFL Rehab PT IP prob,goals,plan Problems Date of Evaluation: 05/04/17 Rehab Potential Rehab Potential Good Equipment Needs Assistive Devices None / NA Discharge Plan PT Discharge Plan Pt is appropriate to return home once medically stable. G -code Required Yes Eval Complexity Eval Charge Codes 81802 - Moderate Complexity G Codes PT Current Status Mobility PT Current Status Modifier CI-At least 1% but less than 20% impaired, limited or restricted PT Goal Status Mobility PT Goal Status Modifer CI-At least 1% but less than 20% impaired, limited or restricted PHYSICIAN CERTIFICATION: I certify the specified therapy services for Scott Garcia are required, authorized, and reviewed every 30 days.
--- NOTE | 2017-05-04 11:58 | P.PN_ITS ---
Internal Medicine - PN: Subj *Date: 05/04/17 *Time: 11:57 Exam Vital signs and Labs for Last 24 Hours: Temp Pulse Resp BP Pulse Ox 97.6 F 74 20 128/59 96 05/04/17 08:40 05/04/17 09:53 05/04/17 08:40 05/04/17 08:40 05/04/17 08:40 I & O for Last 24 hours: Intake & Output 05/01/17 05/02/17 05/03/17 05/04/17 23:59 23:59 23:59 23:59 Intake Total 1140 / 1140 1034 / 1034 2690 / 2690 360 / 360 Output Total 1400 / 1400 650 / 650 3475 / 3475 Balance -260 / -260 384 / 384 -785 / -785 360 / 360 Weight 63.56 kg 64.042 kg 62.17 kg Assessment and Plan (1) Community acquired pneumonia Current visit: Yes Status: Acute Qualifiers: Laterality: right Lung location: lower lobe of lung Qualified Code(s): J18.1 - Lobar pneumonia, unspecified organism Category: Medical Code(s): J18.9 - Pneumonia, unspecified organism (2) Acute exacerbation of chronic obstructive airways disease Current visit: Yes Status: Acute Category: Medical Code(s): J44.1 - Chronic obstructive pulmonary disease with (acute) exacerbation (3) Non-STEMI (non-ST elevated myocardial infarction) Current visit: Yes Status: Acute Category: Medical Code(s): I21.4 - Non- ST elevation (NSTEMI) myocardial infarction The patient's infection will respond to the chosen ABx?: Yes (HOME ON KEFLEX) Is the patient receiving the right drug, dose, and route?: Yes Could a more targeted ABx be ordered?: No
[2017-05-04 11:59] VITALS: BP 115/61; BP 137/77; PULSE 72; RESP 20; TEMP 36.6; O2SAT 90
[2017-05-04 14:27] VITALS: PULSE 74; PULSE 78
[2017-05-10 07:43] LABS: POC Glucose,Bedside 132 mg/dL
== END 2017-05-04 14:32 | disposition home or self-care (01) | DRG 981 ==
LOC: ER 06:11 → 2ND 06:50
PROVIDERS: Internal Medicine; Admitting Provider Emergency Medicine; Emergency Provider Emergency Medicine; Family Provider Emergency Medicine; PCP Nurse Practitioner Family; Visit Provider Emergency Medicine
PROC: 4A023N7 Measurement of Cardiac Sampling and Pressure, Left Heart, Percutaneous Approach (ICD-10-PCS; principal; 2017-05-01 14:30)
DX: J18.9 Pneumonia, unspecified organism (principal); I21.4 Non-ST elevation (NSTEMI) myocardial infarction; I50.21 Acute systolic (congestive) heart failure; J44.9 Chronic obstructive pulmonary disease, unspecified; I25.10 Atherosclerotic heart disease of native coronary artery without angina pectoris; Z95.810 Presence of automatic (implantable) cardiac defibrillator; Z95.1 Presence of aortocoronary bypass graft; I25.5 Ischemic cardiomyopathy; Z87.891 Personal history of nicotine dependence
CPT/HCPCS: 36415; 71045; 71046; 80048; 80053; 80162; 82550; 82553; 82803; 82962; 83605; 83880; 84484; 85007; 85025; 85347; 87040; 87486; 87581; 87633; 87798; 92937; 93005; 93459; 94640; 94660; 94760; 94761; 96365; 96367; 97162; 97165; 99152; 99282; C1725; C1769; C1876; C9604; J0456; J1644; J2405; Q9967

== ENCOUNTER 2017-05-18 13:38 | Observation (INO) | payer MEDICARE, OTHER, SELFPAY ==
[2017-05-18 13:57] VITALS: BP 122/61; PULSE 72; RESP 22; TEMP 36.8; O2SAT 95; BMI 20.3
--- NOTE | 2017-05-18 14:24 | HMH.EDABDPAI ---
ED Disposition Clinical Impression: Elevated troponin, CAD (coronary artery disease), PUD (peptic ulcer disease), COPD (chronic obstructive pulmonary disease), Pneumonia, Chronic pancreatitis, Aneurysm Disposition: Still a Patient Condition on Discharge: Fair Instructions: DI for Acute Abdomen Referrals: Brian Atkinson MD [Primary Care Provider] - - Critical Care Critical Care Time: No Attestation: On 05/18/17, the high probability of a clinically significant, sudden or life threatening deterioration of the following system(s) required my full and direct attention, intervention and personal management. The time I documented below is in addition to time spent performing reported procedures but includes the following listed in this critical care notation. Medical Decision Making - Medical Records Medical records reviewed: Yes: I reviewed the patient's medical records. Vital Signs: 05/18/17 13:57 Temperature 98.2 F Temperature Source Oral Pulse Rate [Right Radial] 72 Respiratory Rate 22 Blood Pressure [Right Arm] 122/61 Blood Pressure Mean [Right Arm] 81 Blood Pressure Source [Right Arm] Automatic Cuff Blood Pressure Position [Right Arm] Sitting 02 Sat by Pulse Oximetry 95 Oxygen Delivery Method Room Air - Lab Data Lab results reviewed: Yes: I reviewed the patient's lab results. Lab Results 05/18/17 14:10: ABG pH 7.44, ABG pCO2 40.8, ABG pO2 76.8 L, ABG HCO3 26.8 H, ABG Total CO2 28.1 H, ABG O2 Saturation 95, ABG Base Excess 2.6 H 05/18/17 14:21: WBC 7.1, RBC 5.16, Hgb 13.6 L, Hct 43.1, MCV 83.6, MCH 26.3 L, MCHC 31.5 L, RDW 14.9, Plt Count 245, MPV 8.0, Neut % (Auto) 77.8, Lymph % (Auto) 13.7, [place] % (Auto) 4.4, Eos % (Auto) 3.2, Baso % (Auto) 0.9, Neut # (Auto) 5.5, Lymph # (Auto) 1.0, [place] # (Auto) 0.3, Eos # (Auto) 0.2, Baso # (Auto) 0.1 05/18/17 14:21: Sodium 138, Potassium 4.3, Chloride 101, Carbon Dioxide 33 H, Anion Gap 8.3, BUN 20 H, Creatinine 0.66 L, Estimated Creat Clear 56, Estimated GFR 117, Est GFR ( Amer) 142, Glucose 82, Calcium 9.0, Total Bilirubin 0.5, AST 12 L, ALT 22, Alkaline Phosphatase 96, Total Creatine Kinase 33 L, CK-MB (CK-2) 2.3, CK-MB (CK-2) Rel Index 7.0 H, Troponin I 0.18 H, Total Protein 7.2, Albumin 2.9 L, Globulin 4.3 H, Albumin/Globulin Ratio 0.7 L, Amylase 77 05/18/17 14:21: Stool Occult Blood Negative Result diagrams: 05/18/17 14:21 05/18/17 14:21 Orders (Tests/Meds): ED MEDICATIONS Discontinued Medications Generic Name Dose Route Start Last Admin Trade Name Freq PRN Reason Stop Dose Admin Enoxaparin Sodium 60 mg 05/18/17 15:45 05/18/17 16:42 Lovenox 60mg/0.6ml Syringe SQ 05/18/17 15:46 60 mg ONCE ONE Administration Famotidine 20 mg 05/18/17 15:46 05/18/17 16:42 Pepcid 20mg/2ml Vial IV 05/18/17 15:47 20 mg ONCE ONE Administration - Juan Inquiry Pt receiving controlled substance: No Juan was queried for this patient: No Medical Decision Making Narrative: 1532 The patient returned from CT scan denied having chest or abdominal pain. He admitted for having a stent 10 days of. THE TROPONIN WAS POSITIVE , I CALLED AND NOTIFIED DR ASHTON I discussed with Dr. Ashton his EKG changes and his troponin resolved. Dr. Ashton recommended the patient to be admitted and follow-up the troponin trend. No intervention for the time being. I called Dr. Atkinson who agreed to admit the patient for serial enzymes. Will consult Dr. Ashton. Abdominal Pain HPI - General Chief Complaint: Abdominal Pain Stated Complaint: soa Mode of Arrival: Ambulatory Limitations: No Limitations Description of Symptoms (Recalled from ER Triage Doc. by RN): upset stomach believes related to antibiotics, also under shoulder blades, relief with belching - History of Present Illness HPI narrative: 77 years old white male with multiple medical problems including COPD coronary artery disease peptic ulcer disease and prostatic enlargement.
--- NOTE | 2017-05-18 14:29 | ED_ITS ---
ED Disposition Clinical Impression: Elevated troponin, CAD (coronary artery disease), PUD (peptic ulcer disease), COPD (chronic obstructive pulmonary disease), Pneumonia, Chronic pancreatitis, Aneurysm Disposition: Still a Patient Condition on Discharge: Fair Instructions: DI for Acute Abdomen Referrals: Brian Atkinson MD [Primary Care Provider] - - Critical Care Critical Care Time: No Attestation: On 05/18/17, the high probability of a clinically significant, sudden or life threatening deterioration of the following system(s) required my full and direct attention, intervention and personal management. The time I documented below is in addition to time spent performing reported procedures but includes the following listed in this critical care notation. Medical Decision Making - Medical Records Medical records reviewed: Yes: I reviewed the patient's medical records. Vital Signs: 05/18/17 13:57 Temperature 98.2 F Temperature Source Oral Pulse Rate [Right Radial] 72 Respiratory Rate 22 Blood Pressure [Right Arm] 122/61 Blood Pressure Mean [Right Arm] 81 Blood Pressure Source [Right Arm] Automatic Cuff Blood Pressure Position [Right Arm] Sitting 02 Sat by Pulse Oximetry 95 Oxygen Delivery Method Room Air - Lab Data Lab results reviewed: Yes: I reviewed the patient's lab results. Lab Results 05/18/17 14:10: ABG pH 7.44, ABG pCO2 40.8, ABG pO2 76.8 L, ABG HCO3 26.8 H, ABG Total CO2 28.1 H, ABG O2 Saturation 95, ABG Base Excess 2.6 H 05/18/17 14:21: WBC 7.1, RBC 5.16, Hgb 13.6 L, Hct 43.1, MCV 83.6, MCH 26.3 L, MCHC 31.5 L, RDW 14.9, Plt Count 245, MPV 8.0, Neut % (Auto) 77.8, Lymph % (Auto ) 13.7, [place] % (Auto) 4.4, Eos % (Auto) 3.2, Baso % (Auto) 0.9, Neut # (Auto) 5.5, Lymph # (Auto) 1.0, [place] # (Auto) 0.3, Eos # (Auto) 0.2, Baso # (Auto) 0.1 05/18/17 14:21: Sodium 138, Potassium 4.3, Chloride 101, Carbon Dioxide 33 H, Anion Gap 8.3, BUN 20 H, Creatinine 0.66 L, Estimated Creat Clear 56, Estimated GFR 117, Est GFR ( Amer) 142, Glucose 82, Calcium 9.0, Total Bilirubin 0.5, AST 12 L, ALT 22, Alkaline Phosphatase 96, Total Creatine Kinase 33 L, CK- MB (CK-2) 2.3, CK-MB (CK-2) Rel Index 7.0 H, Troponin I 0.18 H, Total Protein 7.2, Albumin 2.9 L, Globulin 4.3 H, Albumin/Globulin Ratio 0.7 L, Amylase 77 05/18/17 14:21: Stool Occult Blood Negative Result diagrams: 05/18/17 14:21 05/18/17 14:21 Orders (Tests/Meds): ED MEDICATIONS Discontinued Medications Generic Name Dose Route Start Last Admin Trade Name Freq PRN Reason Stop Dose Admin Enoxaparin Sodium 60 mg 05/18/17 15:45 05/18/17 16:42 Lovenox 60mg/0.6ml Syringe SQ 05/18/17 15:46 60 mg ONCE ONE Administration Famotidine 20 mg 05/18/17 15:46 05/18/17 16:42 Pepcid 20mg/2ml Vial IV 05/18/17 15:47 20 mg ONCE ONE Administration - Juan Inquiry Pt receiving controlled substance: No Juan was queried for this patient: No Medical Decision Making Narrative: 0770 The patient returned from CT scan denied having chest or abdominal pain. He admitted for having a stent 10 days of. THE TROPONIN WAS POSITIVE , I CALLED AND NOTIFIED DR ASHTON I discussed with Dr. Ashton his EKG changes and his troponin resolved. Dr. Ashton recommended the patient to be admitted and follow-up the troponin trend. No intervention for the time being. I called Dr. Atkinson who agreed to a
--- NOTE | 2017-05-18 14:29 | PC.NURSE ---
pt finished his oral contrast , 30ml of gastrogaffin
[2017-05-18 14:35] LABS: Basophils # 0.1 K/mm3 (0-0.2); Basophils % 0.9 % (0.1-2.0); Eosinophils # 0.2 K/mm3 (0.0-0.4); Eosinophils % 3.2 % (0.1-12.0); Hematocrit 43.1 % (42.0-52.0); Hemoglobin 13.6 g/dL (14.1-18.0); Lymphocytes % 13.7 K/mm3 (10-50); Mean Corpuscular HGB Conc 31.5 g/dL (31.8-35.4); Mean Corpuscular Hemoglobin 26.3 pg (27.0-31.2); Mean Corpuscular Volume 83.6 fl (80-94); Monocytes # 0.3 K/mm3 (0.1-1.0); Monocytes % 4.4 % (1.7-9.3); Neutrophils # 5.5 K/mm3 (1.8-7.8); Neutrophils % 77.8 % (37.0-80.0); Platelet Count 245 K/mm3 (142-424); Red Blood Count 5.16 M/mm3 (4.60-6.20); Red Cell Distribution Width 14.9 % (11.5-17.5); White Blood Count 7.1 K/mm3 (4.8-10.8)
[2017-05-18 14:40] LABS: Occult Blood,Stool Negative (Negative)
[2017-05-18 14:42] LABS: ABG Base Excess 2.6 mmol/L (-2.4-2.3); ABG HCO3 26.8 mmhg (22.0-26.0); ABG Oxygen Saturation 95 % (90-100); ABG PCO2 40.8 mmhg (35.0-45.0); ABG PH 7.44 mmol/L (7.35-7.45); ABG PO2 76.8 mmhg (80-100); ABG TCO2 28.1 mmhg (23-27)
[2017-05-18 15:03] LABS: Alanine Aminotransferase 22 U/L (12-78); Albumin Level 2.9 gm/dL (3.4-5.0); Albumin/Globulin Ratio 0.7 (1.1-1.8); Alkaline Phosphatase 96 U/L (46-116); Amylase 77 U/L (25-125); Anion Gap 8.3 mEq/L (5-15); Aspartate Amino Transferase 12 U/L (15-37); Bilirubin,Total 0.5 mg/dL (0.2-1.0); Blood Urea Nitrogen 20 mg/dL (7-18); Carbon Dioxide 33 mmol/L (21.0-32.0); Chloride 101 mmol/L (98-107); Creatine Kinase 33 U/L (39-308); Creatine Kinase MB 2.3 mg/ml (0.0-3.6); Creatinine Clearance Estimated 56 mL/min (0-300); Creatinine,Serum 0.66 mg/dL (0.70-1.30); Estimated Glomerular Filt Rate 117 ml/min (>60); GFR (African American) 142 ML/MIN (>60); Globulin 4.3 gm/dl (1.3-3.2); Glucose 82 mg/dL (74-106); Potassium 4.3 mmoL/L (3.5-5.1); Sodium 138 mmol/L (136-145); Total Protein,Serum 7.2 gm/dL (6.4-8.2); Troponin I 0.18 ng/ml (0.00-0.06)
--- NOTE | 2017-05-18 15:27 | CT_ITS ---
CT abdomen pelvis wo con CLINICAL INDICATION: Abdominal pain with nausea ITS.REASON: pain ORDERING PHYSICIAN: Krystyna Garza MD PATIENT AGE: 77 years COMPARISON: CT chest of 06/01/2016 TECHNIQUE: Axial images obtained with sagittal and coronal reformats. PROCEDURE: Oral Contrast: Redicat IV Contrast: None . FINDINGS: Lung base images show artifact from pacemaker device. There is chronic pleural parenchymal changes in the left lung base with diaphragmatic calcification on the left. There are emphysematous changes. There is a small hiatal hernia. There is thickening of the gastroesophageal junction which is nonspecific No focal liver lesion. No calcified gallstones. Spleen and adrenal glands are unremarkable. No pancreatic mass or acute pancreatic inflammation. Multiple punctate calculi are present in the pancreas consistent with chronic pancreatitis. No obstructing renal or ureteral calculi. There is nonspecific stranding in perinephric renal fat. A subtle isodense involves the right kidney laterally may be due to is cyst at 1 cm.. The cecum is flexed upon itself cecum in the mid abdominal region. Reported prior appendectomy. Scattered diverticula are present within the descending and sigmoid colon. No evidence of diverticulitis. No intestinal obstruction or free air. There is mild diffuse dilatation of the infrarenal abdominal aorta measuring up to 3.5 cm transverse and 3.5 cm AP. No evidence of retroperitoneal hemorrhage. No pelvic mass apparent. The prostate is slightly enlarged and there is some minimal thickening of the basal urinary bladder nonspecific. IMPRESSION: 1. Chronic changes in the left lower lobe with diaphragmatic calcification. Hiatal hernia with mild thickening of the GE junction. 2. Chronic pancreatitis. 3. Diverticulosis coli. No evidence of diverticulitis 4. Mild fusiform infrarenal abdominal aortic aneurysm at 3.5 cm 5. Mild thickening of the base urinary bladder nonspecific. Inflammation/infection or neoplasm could cause this finding.
[2017-05-18 18:15] VITALS: BP 110/66; PULSE 75; RESP 18; TEMP 36.6; O2SAT 96
[2017-05-18 18:48] LABS: Troponin I 0.17 ng/ml (0.00-0.06)
--- NOTE | 2017-05-18 18:58 | PC.NURSE ---
Pt arrived to room 218 via wheelchair.
[2017-05-18 19:14] VITALS: BP 112/62; PULSE 72; RESP 20; BMI 20.2
[2017-05-18 20:00] VITALS: BP 94/47; PULSE 68; PULSE 84; PULSE 89; RESP 20; TEMP 36.6; O2SAT 98
[2017-05-19] VITALS (9 sets, daily range): BP systolic 91–128; BP diastolic 48–64; PULSE 60–80; RESP 14–30; TEMP 36.4–36.8; O2SAT 92–100
--- NOTE | 2017-05-19 | CT_ITS ---
CT angio chest HISTORY: Shortness of breath, heart disease, recent cardiac stent placement ITS.REASON: SOA ORDERING PHYSICIAN: Brian Atkinson MD PATIENT AGE: 77 years TECHNIQUE: Axial images obtained following the administration of 75 mL of Isovue 370 . Sagittal, and coronal reformatted images are also generated and reviewed. COMPARISON: 05/27/2016 FINDINGS: There is a small hiatal hernia. There is mild thickening of the esophagus is nonspecific. There is no evidence of pulmonary embolus. There are coronary artery calcifications. The patient has had a prior CABG. No obvious aortic aneurysm. The aorta is not well opacified to evaluate for dissection. Atheromatous changes involve the thoracic aorta similar to an older CTA of the chest of 06/16/2015.. No mediastinal or hilar mass or adenopathy. There are severe centrilobular emphysematous changes with scattered areas of scarring/fibrosis. Fibrocalcific changes involve the left lower thorax with calcification noted at the diaphragm on the left and chronic parenchymal fibrotic changes in the left lower lobe and lingula similar to 05/27/2016. There is evidence of old granulomatous disease. There is trace right pleural effusion. No acute bony anomalies. Punctate calcification noted within the pancreas. IMPRESSION: 1. No evidence of pulmonary embolus or aortic aneurysm. 2. Centrilobular emphysematous changes with chronic pleural parenchymal fibrotic changes and left-sided pleural and diaphragmatic calcification. 3. Trace right effusion.
[2017-05-19 00:15] LABS: Troponin I 0.13 ng/ml (0.00-0.06)
[2017-05-19 06:57] LABS: Basophils # 0.1 K/mm3 (0-0.2); Basophils % 1.4 % (0.1-2.0); Eosinophils # 0.3 K/mm3 (0.0-0.4); Eosinophils % 4.4 % (0.1-12.0); Hematocrit 38.6 % (42.0-52.0); Hemoglobin 12.3 g/dL (14.1-18.0); Lymphocytes # 0.9 K/mm3 (0.7-4.5); Lymphocytes % 15.3 K/mm3 (10-50); Mean Corpuscular HGB Conc 31.8 g/dL (31.8-35.4); Mean Corpuscular Hemoglobin 26.5 pg (27.0-31.2); Mean Corpuscular Volume 83.2 fl (80-94); Mean Platelet Volume 7.9 fl (7.4-10.4); Monocytes # 0.3 K/mm3 (0.1-1.0); Monocytes % 5.6 % (1.7-9.3); Neutrophils # 4.3 K/mm3 (1.8-7.8); Neutrophils % 73.3 % (37.0-80.0); Platelet Count 205 K/mm3 (142-424); Red Blood Count 4.64 M/mm3 (4.60-6.20); White Blood Count 5.9 K/mm3 (4.8-10.8)
[2017-05-19 07:13] LABS: Anion Gap 10.3 mEq/L (5-15); Blood Urea Nitrogen 22 mg/dL (7-18); Carbon Dioxide 29 mmol/L (21.0-32.0); Chloride 105 mmol/L (98-107); Creatinine Clearance Estimated 55 mL/min (0-300); Creatinine,Serum 0.62 mg/dL (0.70-1.30); Estimated Glomerular Filt Rate 126 ml/min (>60); GFR (African American) 153 ML/MIN (>60); Glucose 80 mg/dL (74-106); Potassium 4.3 mmoL/L (3.5-5.1); Sodium 140 mmol/L (136-145)
--- NOTE | 2017-05-19 07:22 | P.CONPHA_ITS ---
[facility] Pharmacy VTE Monitoring - Patient Demographics Admission date: 05/18/17 Report Date: 05/19/17 Time: 07:21 Allergies/Adverse Reactions: Patient Allergies morphine [MORPHINE] Allergy (Unknown, Verified 05/01/17 05:53) Height: 1.75 m Weight: 62.4 kg Patient Problems: Current Active Problems Elevated troponin (Acute) CAD (coronary artery disease) (Acute) PUD (peptic ulcer disease) (Acute) Pneumonia (Acute) Chronic pancreatitis (Acute) Aneurysm (Acute) Chronic obstructive lung disease (Acute) - VTE Risk Labs: VTE Related Lab Results Hgb 12.3 g/dL (14.1-18.0) L 05/19/17 06:15 Hct 38.6 % (42.0-52.0) L 05/19/17 06:15 Plt Count 205 K/mm3 (142-424) 05/19/17 06:15 BUN 22 mg/dL (7-18) H 05/19/17 06:15 Creatinine 0.62 mg/dL (0.70-1.30) L 05/19/17 06:15 Estimated Creat Clear 55 mL/min (0-300) 05/19/17 06:15 Was VTE Risk Assessment Performed: Yes VTE Score: 3 VTE Risk Level: Low Risk Clinical Trial Participant: No - Prophylaxis VTE Prophylaxis Ordered?: Yes Types of VTE Prophylaxis: TEDS Knee High, Pharmacological Pharmacologic Type: Enoxaparin
--- NOTE | 2017-05-19 09:19 | XR_ITS ---
XR chest 2V HISTORY: ITS.REASON: SOA, hypoxia ORDERING PHYSICIAN: Brian Atkinson MD PATIENT AGE: 77 years COMPARISON: 05/03/2017 FINDINGS: CHF has improved. There is been a prior median sternotomy with CABG and pacemaker present. Chronic pleural parenchymal changes are present in the lung bases. Fibrocalcific changes are present in the left lower lobe. In addition, there is increased density in the retrocardiac region on the left which may be due to superimposed infiltrate/pneumonia. No acute bony anomalies. IMPRESSION: Postsurgical changes with chronic pleural parenchymal changes with superimposed atelectasis or infiltrate in the left lung base
--- NOTE | 2017-05-19 09:21 | HMH.PNCARD ---
Subjective Date: 05/19/17 Time: 09:21 Principal diagnosis: SOA, Hypoxia Interval history: 77 yo white male with recent coronary artery stenting presented to the office yesterday for follow-up. Patient was noted to appear pale and short of breath. His oxygen saturation on room air was in the mid 70s after ambulating. With sitting his O2 sat increased into the mid 80s but due to continued complaint of fatigue and not feeling well patient was sent to the Emergency department for further evaluation. In the emergency department, reportedly the oxygen saturations were in the mid 90s with questionable EKG changes. Cardiac troponins were obtained and noted to be elevated and consultation with Dr. Xie by Dr. Ruiz was undertaken. Dr. Xie did not feel that the patient was having a cardiac event and that the EKG changes were not significant. Due to the transient hypoxia patient was admitted for further evaluation. The complaint of abdominal pain patient did have a CAT scan of his abdomen and pelvis with no acute findings. This a.m. patient continues to complain of just feeling fatigued and tired denies any chest pain. Troponins have continued to trend downward overnight. Review of Systems - *Cardiovascular Denies chest pain - *Respiratory Reports cough, Reports shortness of breath - *Gastrointestinal Reports abdominal pain Meds Home Medications Medication Instructions Recorded Confirmed Type aspirin 81 mg tablet,delayed 81 mg PO DAILY 04/12/17 05/18/17 History release oxybutynin chloride 5 mg tablet 5 mg PO BID 04/12/17 05/19/17 History ropinirole 0.5 mg tablet 0.5 mg PO TID 04/12/17 05/19/17 History tamsulosin 0.4 mg capsule 0.4 mg PO DAILY 04/12/17 05/18/17 History Clopidogrel Bisulfate [Plavix 75mg 75 mg PO DAILY 05/18/17 05/18/17 History Tab] Furosemide [Furosemide 40MG tAB] 40 mg PO DAILY 05/18/17 05/18/17 History Hydrocodone/Acetaminophen 1 each PO Q6HP PRN 05/18/17 05/18/17 History [Hydrocodone-Acetamin 10-325 mg] Pantoprazole Sodium [Protonix 40mg 40 mg PO DAILY 05/18/17 05/18/17 History tablet] Spironolactone [Aldactone 25mg 25 mg PO DAILY 05/18/17 05/18/17 History Tab] Atorvastatin Calcium [Lipitor 80mg 80 mg PO HS 05/19/17 05/19/17 History Tablet] Carvedilol [Coreg 6.25mg 6.25 mg PO BID 05/19/17 05/19/17 History Tablet] Cetirizine HCl 10 mg PO DAILY 05/19/17 05/19/17 History Losartan Potassium 100 mg PO DAILY 05/19/17 05/19/17 History Montelukast Sodium [Montelukast 10 mg PO HS 05/19/17 05/19/17 History 10mg Tab] raNITIdine HCl [Ranitidine HCl] 150 mg PO BID 05/19/17 05/19/17 History Allergies Allergy/AdvReac Type Severity Reaction Status Date / Time morphine [MORPHINE] Allergy Unknown Verified 05/01/17 05:53 Exam Vital signs and Labs for Last 24 Hours: Temp Pulse Resp BP Pulse Ox 98.2 F 77 14 128/59 100 05/19/17 08:00 05/19/17 08:00 05/19/17 08:00 05/19/17 08:00 05/19/17 08:00 Laboratory Results - last 24 hr 05/18/17 23:40: Troponin I 0.13 H 05/19/17 06:15: WBC 5.9, RBC 4.64, Hgb 12.3 L, Hct 38.6 L, MCV 83.2, MCH 26.5 L, MCHC 31.8, RDW 15.0, Plt Count 205, MPV 7.9, Neut % (Auto) 73.3, Lymph % (Auto) 15.3, [place] % (Auto) 5.6, Eos % (Auto) 4.4, Baso % (Auto) 1.4, Neut # (Auto) 4.3, Lymph # (Auto) 0.9, [place] # (Auto) 0.3, Eos # (Auto) 0.3, Baso # (Auto) 0.1 05/19/17 06:15: Sodium 140, Potassium 4.3, Chloride 105, Carbon Dioxide 29, Anion Gap 10.3, BUN 22 H, Creatinine 0.62 L, Estimated Creat Clear 55, Estimated GFR 126, Est GFR ( Amer) 153, Glucose 80 I & O for Last 24 hours: Intake & Output 05/16/17 05/17/17 05/18/17 05/19/17 11:59 11:59 11:59 11:59 Output Total 300 / 300 Balance -300 / -300 Weight 137 lb 9.095 oz - *Routine Respiratory Exam Present: rhonchi, wheezes - *Routine Cardiovascular Exam Present: RRR - *Routine Extremities Exam Absent: edema - *Routine Neurological Exam Pre
--- NOTE | 2017-05-19 09:25 | P.PN_ITS ---
Subjective Date: 05/19/17 Time: 09:21 Principal diagnosis: SOA, Hypoxia Interval history: 77 yo white male with recent coronary artery stenting presented to the office yesterday for follow-up. Patient was noted to appear pale and short of breath. His oxygen saturation on room air was in the mid 70s after ambulating. With sitting his O2 sat increased into the mid 80s but due to continued complaint of fatigue and not feeling well patient was sent to the Emergency department for further evaluation. In the emergency department, reportedly the oxygen saturations were in the mid 90s with questionable EKG changes. Cardiac troponins were obtained and noted to be elevated and consultation with Dr. Xie by Dr. Ruiz was undertaken. Dr. Xie did not feel that the patient was having a cardiac event and that the EKG changes were not significant. Due to the transient hypoxia patient was admitted for further evaluation. The complaint of abdominal pain patient did have a CAT scan of his abdomen and pelvis with no acute findings. This a.m. patient continues to complain of just feeling fatigued and tired denies any chest pain. Troponins have continued to trend downward overnight. Review of Systems - *Cardiovascular Denies chest pain - *Respiratory Reports cough, Reports shortness of breath - *Gastrointestinal Reports abdominal pain Meds Home Medications Medication Instructions Recorded Confirmed Type aspirin 81 mg tablet,delayed 81 mg PO DAILY 04/12/17 05/18/17 History release oxybutynin chloride 5 mg tablet 5 mg PO BID 04/12/17 05/19/17 History ropinirole 0.5 mg tablet 0.5 mg PO TID 04/12/17 05/19/17 History tamsulosin 0.4 mg capsule 0.4 mg PO DAILY 04/12/17 05/18/17 History Clopidogrel Bisulfate [Plavix 75mg 75 mg PO DAILY 05/18/17 05/18/17 History Tab] Furosemide [Furosemide 40MG tAB] 40 mg PO DAILY 05/18/17 05/18/17 History Hydrocodone/Acetaminophen 1 each PO Q6HP PRN 05/18/17 05/18/17 History [Hydrocodone-Acetamin 10-325 mg] Pantoprazole Sodium [Protonix 40mg 40 mg PO DAILY 05/18/17 05/18/17 History tablet] Spironolactone [Aldactone 25mg 25 mg PO DAILY 05/18/17 05/18/17 History Tab] Atorvastatin Calcium [Lipitor 80mg 80 mg PO HS 05/19/17 05/19/17 History Tablet] Carvedilol [Coreg 6.25mg 6.25 mg PO BID 05/19/17 05/19/17 History Tablet] Cetirizine HCl 10 mg PO DAILY 05/19/17 05/19/17 History Losartan Potassium 100 mg PO DAILY 05/19/17 05/19/17 History Montelukast Sodium [Montelukast 10 mg PO HS 05/19/17 05/19/17 History 10mg Tab] raNITIdine HCl [Ranitidine HCl] 150 mg PO BID 05/19/17 05/19/17 History Allergies Allergy/AdvReac Type Severity Reaction Status Date / Time morphine [MORPHINE] Allergy Unknown Verified 05/01/17 05:53 Exam Vital signs and Labs for Last 24 Hours: Temp Pulse Resp BP Pulse Ox 98.2 F 77 14 128/59 100 05/19/17 08:00 05/19/17 08:00 05/19/17 08:00 05/19/17 08:00 05/19/17 08:00 Laboratory Results - last 24 hr 05/18/17 23:40: Troponin I 0.13 H 05/19/17 06:15: WBC 5.9, RBC 4.64, Hgb 12.3 L, Hct 38.6 L, MCV 83.2, MCH 26.5 L , MCHC 31.8, RDW 15.0, Plt Count 205, MPV 7.9, Neut % (Auto) 73.3, Lymph % (Auto ) 15.3, [place] % (Auto) 5.6, Eos % (Auto) 4.4, Baso % (Auto) 1.4, Neut # (Auto) 4.3, Lymph # (Auto) 0.9, [place] # (Auto) 0.3, Eos # (Auto) 0.3, Baso # (Auto) 0.1 05/19/17 06:15: Sodium 140,
--- NOTE | 2017-05-19 10:09 | HMH.HP ---
*Admission Date: 05/18/17 *Chief complaint: sob *History of present illness: pt presents to ed with sob with no fever or prod cough-77 years old white male with multiple medical problems including COPD coronary artery disease peptic ulcer disease and prostatic enlargement. He was being seen at the cardiology clinic when he was noted to have a low sat with cold fingers. This turned out to be normal when he arrived to the ED. Then he complained of having epigastric pain for the past 6 days since he started on antibiotic. He has history of peptic ulcer disease and is on Protonix. Been using Pepto-Bismol with black stool. Denies having vomiting hematemesis coffee-ground emesis. States that the pain is worse with food. He denies having weakness dizziness lightheadedness. He had a recent admission for pneumonia and continues to have productive cough. [facility] History I have reviewed the patient's past medical history: Yes Medical History: Reports:: Chronic Obstructive Pulmonary Disease (COPD), Coronary Artery Disease, Diabetes Mellitus Type 2, Hyperlipidemia, Internal Pacemaker Denies:: Cancer, Diabetes Mellitus Type 1, MRSA Other Surgeries: Yes: Appendectomy, CABG, Cardiac Catheterization, Coronary Stent, Open Heart Surgery, Pacemaker, Other Amputation: No Fractures: No - *Social History Educational Level: Completed High School Smoking Status: Former smoker Tobacco Type: cigarettes #Yrs smoked (if former smoker): 30 Alcohol Intake: never Substance Use Type: denies use Occupational Status: retired Housing: house Household Members: spouse - Psychiatric History Expresses thoughts of harming self/others: None Suicide Plan Description: No Plan *Family Hx:: Non-contributory Review of Systems - Review of Systems Review of systems:: pertinent systems reviewed and negative unless documented below - Constitutional Reports fatigue, Denies fever(s) - Eyes Denies change in vision - ENT Denies hoarseness - *Cardiovascular Reports shortness of breath, Denies chest pain at rest - *Respiratory Reports shortness of breath, Denies chest congestion, Denies cough - *Gastrointestinal Denies abdominal pain, Denies nausea - *Genitourinary Denies blood in urine - *Musculoskeletal Denies joint pain - Integumentary/Breasts Denies rash - *Neurologic Denies seizure-like activity - Psychiatric Reports anxiety Meds Home Medications Medication Instructions Recorded Confirmed Type aspirin 81 mg tablet,delayed 81 mg PO DAILY 04/12/17 05/18/17 History release oxybutynin chloride 5 mg tablet 5 mg PO BID 04/12/17 05/19/17 History ropinirole 0.5 mg tablet 0.5 mg PO TID 04/12/17 05/19/17 History tamsulosin 0.4 mg capsule 0.4 mg PO DAILY 04/12/17 05/18/17 History Clopidogrel Bisulfate [Plavix 75mg 75 mg PO DAILY 05/18/17 05/18/17 History Tab] Furosemide [Furosemide 40MG tAB] 40 mg PO DAILY 05/18/17 05/18/17 History Hydrocodone/Acetaminophen 1 each PO Q6HP PRN 05/18/17 05/18/17 History [Hydrocodone-Acetamin 10-325 mg] Pantoprazole Sodium [Protonix 40mg 40 mg PO DAILY 05/18/17 05/18/17 History tablet] Spironolactone [Aldactone 25mg 25 mg PO DAILY 05/18/17 05/18/17 History Tab] Atorvastatin Calcium [Lipitor 80mg 80 mg PO HS 05/19/17 05/19/17 History Tablet] Carvedilol [Coreg 6.25mg 6.25 mg PO BID 05/19/17 05/19/17 History Tablet] Cetirizine HCl 10 mg PO DAILY 05/19/17 05/19/17 History Losartan Potassium 100 mg PO DAILY 05/19/17 05/19/17 History Montelukast Sodium [Montelukast 10 mg PO HS 05/19/17 05/19/17 History 10mg Tab] raNITIdine HCl [Ranitidine HCl] 150 mg PO BID 05/19/17 05/19/17 History Allergies Allergy/AdvReac Type Severity Reaction Status Date / Time morphine [MORPHINE] Allergy Unknown Verified 05/01/17 05:53 Exam Vital signs and Labs for Last 24 Hours: Temp Pulse Resp BP Pulse Ox 98.2 F 77 14 128/59 100 05/19/17 08:00 05/19/17 08:00
[2017-05-20] VITALS (9 sets, daily range): BP systolic 95–104; BP diastolic 36–54; PULSE 60–82; RESP 20–27; TEMP 36.4–36.8; O2SAT 93–98
--- NOTE | 2017-05-20 05:19 | PC.NURSE ---
Pt slept following approximately 2230. Awakened easily for rounds and assessment with no c/o pain. Makes needs known and is aware of POC and timing of medications. IV infusing well with no s/s of erythema or infiltration. Pt remained safe and stable during my care with nothing acute to report.
--- NOTE | 2017-05-20 08:16 | HMH.PNCARD ---
Subjective Date: 05/20/17 Time: 08:16 Principal diagnosis: SOA, Hypoxia Interval history: 57-year-old white male in bed in no acute distress. States he is breathing better. Oxygen saturation is 94% on supplemental oxygen. CT of the chest last evening performed to rule out pulmonary embolus. There is no evidence of pulmonary embolus and no mention of infiltrate. Review of Systems - *Cardiovascular Denies chest pain - *Respiratory Reports shortness of breath with activity - *Neurologic Denies seizure-like activity Meds Home Medications Medication Instructions Recorded Confirmed Type aspirin 81 mg tablet,delayed 81 mg PO DAILY 04/12/17 05/18/17 History release oxybutynin chloride 5 mg tablet 5 mg PO BID 04/12/17 05/19/17 History ropinirole 0.5 mg tablet 0.5 mg PO TID 04/12/17 05/19/17 History tamsulosin 0.4 mg capsule 0.4 mg PO DAILY 04/12/17 05/18/17 History Clopidogrel Bisulfate [Plavix 75mg 75 mg PO DAILY 05/18/17 05/18/17 History Tab] Furosemide [Furosemide 40MG tAB] 40 mg PO DAILY 05/18/17 05/18/17 History Hydrocodone/Acetaminophen 1 each PO Q6HP PRN 05/18/17 05/18/17 History [Hydrocodone-Acetamin 10-325 mg] Pantoprazole Sodium [Protonix 40mg 40 mg PO DAILY 05/18/17 05/18/17 History tablet] Spironolactone [Aldactone 25mg 25 mg PO DAILY 05/18/17 05/18/17 History Tab] Atorvastatin Calcium [Lipitor 80mg 80 mg PO HS 05/19/17 05/19/17 History Tablet] Carvedilol [Coreg 6.25mg 6.25 mg PO BID 05/19/17 05/19/17 History Tablet] Cetirizine HCl 10 mg PO DAILY 05/19/17 05/19/17 History Losartan Potassium 100 mg PO DAILY 05/19/17 05/19/17 History Montelukast Sodium [Montelukast 10 mg PO HS 05/19/17 05/19/17 History 10mg Tab] raNITIdine HCl [Ranitidine HCl] 150 mg PO BID 05/19/17 05/19/17 History Allergies Allergy/AdvReac Type Severity Reaction Status Date / Time morphine [MORPHINE] Allergy Unknown Verified 05/01/17 05:53 Exam Vital signs and Labs for Last 24 Hours: Temp Pulse Resp BP Pulse Ox 98.3 F 72 22 104/54 95 05/20/17 07:28 05/20/17 07:51 05/20/17 07:28 05/20/17 07:28 05/20/17 07:51 I & O for Last 24 hours: Intake & Output 05/17/17 05/18/17 05/19/17 05/20/17 11:59 11:59 11:59 11:59 Intake Total 480 / 480 Output Total 300 / 300 1000 / 1000 Balance -300 / -300 -520 / -520 Weight 137 lb 9.095 oz - *Routine Respiratory Exam Present: rhonchi, wheezes - *Routine Cardiovascular Exam Present: RRR. Absent: murmur, gallop Plan - Patient/Caregiver Discharge Instructions Activity: Cardiac status stable. No further cardiac workup at this time. Treatment of COPD per Dr. Atkinson. - Follow Up Plan
--- NOTE | 2017-05-20 16:31 | HMH.DCSUM ---
General - General Admission date: 05/18/17 Discharge date: 05/20/17 HPI HPI: pt presents to ed with sob with no fever or prod cough-77 years old white male with multiple medical problems including COPD coronary artery disease peptic ulcer disease and prostatic enlargement. He was being seen at the cardiology clinic when he was noted to have a low sat with cold fingers. This turned out to be normal when he arrived to the ED. Then he complained of having epigastric pain for the past 6 days since he started on antibiotic. He has history of peptic ulcer disease and is on Protonix. Been using Pepto-Bismol with black stool. Denies having vomiting hematemesis coffee-ground emesis. States that the pain is worse with food. He denies having weakness dizziness lightheadedness. He had a recent admission for pneumonia and continues to have productive cough. Objective Vital signs: Temp Pulse Resp BP Pulse Ox 97.9 F 82 22 100/53 93 L 05/20/17 15:56 05/20/17 15:56 05/20/17 15:56 05/20/17 15:56 05/20/17 15:56 no acute distress - *Routine HEENT Exam Head: Present: normocephalic Eye: Present: PERRL ENT: Present: mucous membranes moist - *Routine Neck Exam Present: supple, full ROM - *Routine Respiratory Exam Present: CTA bilaterally, diminished air movement - *Routine Cardiovascular Exam Present: RRR - *Routine Abdominal Exam Present: soft, normoactive bowel sounds - *Routine Skin Exam Present: intact - *Routine Neurological Exam Present: alert, oriented X3, CN II-XII intact - Routine Psychiatric Exam Present: normal affect Hospital Course Hospital Course: ct scan:Postsurgical changes with chronic pleural parenchymal changes with superimposed atelectasis or infiltrate in the left lung bas cardiology consult: see note will dc home today and treat copd. will follow up in office wednesday. Discharge Plan - Patient Discharge Instructions ACTIVITY: Continue current activity DIET: continue same diet - Follow up Plan Follow up with: Patito Bailey PA [[facility]] - 05/24/17 Disposition: Home, Self-Detention Medications: Home Medications Medication Instructions Recorded Confirmed Type aspirin 81 mg tablet,delayed 81 mg PO DAILY 04/12/17 05/18/17 History release oxybutynin chloride 5 mg tablet 5 mg PO BID 04/12/17 05/19/17 History ropinirole 0.5 mg tablet 0.5 mg PO TID 04/12/17 05/19/17 History tamsulosin 0.4 mg capsule 0.4 mg PO DAILY 04/12/17 05/18/17 History Clopidogrel Bisulfate [Plavix 75mg 75 mg PO DAILY 05/18/17 05/18/17 History Tab] Furosemide [Furosemide 40MG tAB] 40 mg PO DAILY 05/18/17 05/18/17 History Hydrocodone/Acetaminophen 1 each PO Q6HP PRN 05/18/17 05/18/17 History [Hydrocodone-Acetamin 10-325 mg] Pantoprazole Sodium [Protonix 40mg 40 mg PO DAILY 05/18/17 05/18/17 History tablet] Spironolactone [Aldactone 25mg 25 mg PO DAILY 05/18/17 05/18/17 History Tab] Atorvastatin Calcium [Lipitor 80mg 80 mg PO HS 05/19/17 05/19/17 History Tablet] Carvedilol [Coreg 6.25mg 6.25 mg PO BID 05/19/17 05/19/17 History Tablet] Cetirizine HCl 10 mg PO DAILY 05/19/17 05/19/17 History Losartan Potassium 100 mg PO DAILY 05/19/17 05/19/17 History Montelukast Sodium [Montelukast 10 mg PO HS 05/19/17 05/19/17 History 10mg Tab] raNITIdine HCl [Ranitidine HCl] 150 mg PO BID 05/19/17 05/19/17 History Prescriptions/Medication Reconciliation: New predniSONE [Deltasone 10mg tablet] 10 mg PO DAILY 30 Days #30 tab Fluticasone/Vilanterol [Breo Ellipta 100-25 Mcg INH] 1 each IH DAILY #1 blst.w.dev Continue oxybutynin chloride 5 mg tablet 5 mg PO BID tamsulosin 0.4 mg capsule 0.4 mg PO DAILY aspirin 81 mg tablet,delayed release 81 mg PO DAILY ropinirole 0.5 mg tablet 0.5 mg PO TID Digoxin 125 mcg PO DAILY #30 tablet Spironolactone [Aldactone 25mg Tab] 25 mg PO DAILY Pantoprazole Sodium [Protonix 4
== END 2017-05-20 17:50 | disposition home or self-care (01) ==
LOC: ER 16:12 → 2ND 20:51
PROVIDERS: Admitting Provider Emergency Medicine; Emergency Provider Emergency Medicine; Family Provider Emergency Medicine; PCP Emergency Medicine; Visit Provider Emergency Medicine
DX: R10.13 Epigastric pain (principal); Z87.11 Personal history of peptic ulcer disease; Z87.01 Personal history of pneumonia (recurrent); J44.9 Chronic obstructive pulmonary disease, unspecified; I25.10 Atherosclerotic heart disease of native coronary artery without angina pectoris; R74.8 Abnormal levels of other serum enzymes; E11.9 Type 2 diabetes mellitus without complications; Z95.0 Presence of cardiac pacemaker; Z95.1 Presence of aortocoronary bypass graft; Z95.5 Presence of coronary angioplasty implant and graft; Z87.891 Personal history of nicotine dependence; Z79.02 Long term (current) use of antithrombotics/antiplatelets; Z79.82 Long term (current) use of aspirin; Z79.891 Long term (current) use of opiate analgesic; Z79.899 Other long term (current) drug therapy; Z88.5 Allergy status to narcotic agent
CPT/HCPCS: 36415; 71046; 71275; 74176; 80048; 80053; 82150; 82272; 82550; 82553; 82803; 84484; 85025; 93005; 94640; 96372; 96374; 99283; G0328; G0378; Q9967

== ENCOUNTER → 2017-06-11 12:53 | Outpatient (CLI) | payer MEDICARE, OTHER, SELFPAY ==
--- NOTE | 2017-06-11 13:03 | XR_ITS ---
XR chest 2V Ordering Physician: Murphy Washington MD Patient Age: 77 years: Male HISTORY: ITS.REASON: dyspnea COPD TECHNIQUE: PA and lateral chest COMPARISON :Previous 2 view chest 05/19/2017 &, May 01, 2017 FINDINGS Pacemaker overlies the left chest with atrial and ventricular leads intact. The heart is normal in size. No CHF RIGHT LUNG again note the slight accentuation of coarsening of central markings. Is similar to May 2017. Recently stable only question slight additional prominence of central vascularity and markings which could reflect a slight additional vascular engorgement but no prominent or overt CHF. LEFT LUNG again demonstrates pleural thickening at the posterior left base with some calcification of the pleura at the left CP angle region as well as posteriorly noted. There is associated atelectasis and linear density at the left infrahilar region slight posterior displacement major fissure again seen and stable reflecting this scarring pleural and parenchymal at left base. With fairly stable minimal pleural calcification towards the left CP angle and posterior left chest. Previous sternotomy. CABG markers. T-spine appears stable with mild dextroscoliosis again noted. ==. IMPRESSION. = 1. Nothing definitely acute 2.. Multiple old left rib fractures are with prominent pleural scarring with calcification the left base-most evident posterior & towards CP angle. Chronic parenchymal changes as well. 3. Central markings upper normal on about right perihilar region-most likely reflecting chronic change. Difficult to exclude very subtle perihilar infiltrate on right 4. Sternotomy, CABG. Pacemaker.
[2017-06-11 13:11] LABS: Anion Gap 6.8 mEq/L (5-15); Blood Urea Nitrogen 25 mg/dL (7-18); Carbon Dioxide 33 mmol/L (21.0-32.0); Chloride 102 mmol/L (98-107); Creatinine,Serum 0.79 mg/dL (0.70-1.30); Estimated Glomerular Filt Rate 95 ml/min (>60); GFR (African American) 115 ML/MIN (>60); Glucose 110 mg/dL (74-106); Potassium 3.8 mmoL/L (3.5-5.1); Sodium 138 mmol/L (136-145)
== END ==
PROVIDERS: Family Provider Emergency Medicine; PCP Emergency Medicine; Visit Provider Internal Medicine Cardiovascular Disease
DX: I50.20 Unspecified systolic (congestive) heart failure (principal); Z95.810 Presence of automatic (implantable) cardiac defibrillator; J44.9 Chronic obstructive pulmonary disease, unspecified; I95.9 Hypotension, unspecified; Z95.5 Presence of coronary angioplasty implant and graft; I25.10 Atherosclerotic heart disease of native coronary artery without angina pectoris; E78.5 Hyperlipidemia, unspecified; R06.00 Dyspnea, unspecified
CPT/HCPCS: 36415; 71046; 80048; 83880

== ENCOUNTER → 2017-06-14 08:36 | Outpatient (CLI) | payer MEDICARE, OTHER, SELFPAY ==
[2017-06-14 09:00] LABS: Anion Gap 7.9 mEq/L (5-15); Blood Urea Nitrogen 35 mg/dL (7-18); Carbon Dioxide 35 mmol/L (21.0-32.0); Chloride 101 mmol/L (98-107); Creatinine,Serum 0.83 mg/dL (0.70-1.30); Estimated Glomerular Filt Rate 90 ml/min (>60); GFR (African American) 109 ML/MIN (>60); Glucose 102 mg/dL (74-106); Potassium 4.9 mmoL/L (3.5-5.1); Sodium 139 mmol/L (136-145)
== END ==
PROVIDERS: Visit Provider Internal Medicine Cardiovascular Disease
DX: I25.10 Atherosclerotic heart disease of native coronary artery without angina pectoris (principal); E78.5 Hyperlipidemia, unspecified; I50.20 Unspecified systolic (congestive) heart failure; Z95.5 Presence of coronary angioplasty implant and graft; Z95.810 Presence of automatic (implantable) cardiac defibrillator; J44.9 Chronic obstructive pulmonary disease, unspecified; H91.90 Unspecified hearing loss, unspecified ear; R06.02 Shortness of breath
CPT/HCPCS: 36415; 80048; 83880

== ENCOUNTER → 2017-06-18 12:29 | Outpatient (CLI) | payer MEDICARE, OTHER, SELFPAY ==
--- NOTE | 2017-06-18 | CA_ITS ---
PROCEDURE: 2-D M-mode and color Doppler study INDICATIONS FOR THE TEST: Chest pain COPD+ Heart Murmur Tobacco Smokingex Palpitations Fatigue Syncope Edema Hypertension+Diabetes Mellitus+ Rheumatic Fever SOB+BARBOUR Obesity Hyperlipidemia Family History HD Additional History pulmonary emphysema, AICD, stents, NonStemi, dizziness, weakness PATIENT INFORMATION HEIGHT: 69 WEIGHT: 129 GENDER: Male B/P: 102/65 2-D/M-MODE INTERPRETATION: 2-D MEASUREMENTS OBSERVED VALUES IN CMS Right Ventricular Dimension (RVDd) 2.0 Interventricular Septum (Thickness)(IVsd) 1.1 Left Ventricular Internal Dimensions(LVIDd) 5.1 Left Ventricular Posterior Wall (Thickness)(LVPWd) 1.2 Aortic Root 2.6 Aortic Cusp Separation 1.3 Left Atrial Dimensions (LAD) 4.6 2D 1. Left atrium is moderately enlarged, left ventricle is mildly dilated, there is mild concentric left ventricular hypertrophy, severely reduced left ventricular systolic function, visually estimated ejection fraction approximately 20-25%, there is marked hypokinesis involving mid to distal septum, anterior, anteroapical, apical and anterolateral wall. 2. The right atrium and right ventricle are relatively normal size and function, there is a pacemaker on an AICD lead seen in the right ventricle. 3. The aortic valve is minimally thickened and fibrosed leaflet continue to display mobility. 4. The mitral and tricuspid valve leaflets are minimally thickened. 5. The pulmonic valve is poorly visualized. 6. No significant pericardial effusion noted. DOPPLER INTERROGATION: Doppler interrogation of the aortic, mitral and tricuspid valvular presence of moderate aortic, mild mitral and tricuspid regurgitation, calculated right ventricular systolic pressure approximately 45 mmHg consistent with moderate pulmonary hypertension, grade 1 diastolic dysfunction seen with tissue Doppler evidence of raised left atrial pressure. CONCLUSION: 1. Moderately enlarged left atrium, mildly dilated left ventricle, mild concentric left ventricular hypertrophy, visually estimated ejection fraction of 20-25% with multiple segmental wall motion abnormality described above, grade 1 diastolic dysfunction seen with tissue Doppler evidence of raised left atrial pressure. 2. Moderate aortic, mild mitral and tricuspid regurgitation, calculated right ventricular systolic pressure 45 mmHg consistent with moderate pulmonary hypertension. 3. No significant pericardial effusion noted.
== END ==
PROVIDERS: Family Provider Emergency Medicine; PCP Emergency Medicine; Visit Provider Internal Medicine Cardiovascular Disease
DX: J44.9 Chronic obstructive pulmonary disease, unspecified (principal); I50.20 Unspecified systolic (congestive) heart failure; I25.10 Atherosclerotic heart disease of native coronary artery without angina pectoris; Z95.5 Presence of coronary angioplasty implant and graft; E78.5 Hyperlipidemia, unspecified; Z95.810 Presence of automatic (implantable) cardiac defibrillator
CPT/HCPCS: 36415; 80053; 80061; 85025; 93306

== ENCOUNTER 2017-06-18 14:49 | Emergency (ER) | payer MEDICARE, OTHER, SELFPAY ==
[2017-06-18 15:01] VITALS: BP 81/50; PULSE 84; RESP 16; TEMP 36.9; O2SAT 94; BMI 20.5
[2017-06-18 16:04] VITALS: BP 108/54
[2017-06-18 16:07] LABS: Alanine Aminotransferase 18 U/L (12-78); Albumin Level 3.1 gm/dL (3.4-5.0); Albumin/Globulin Ratio 0.8 (1.1-1.8); Alkaline Phosphatase 89 U/L (46-116); Anion Gap 11.3 mEq/L (5-15); Bilirubin,Total 0.5 mg/dL (0.2-1.0); Blood Urea Nitrogen 29 mg/dL (7-18); Carbon Dioxide 32 mmol/L (21.0-32.0); Chloride 100 mmol/L (98-107); Creatinine Clearance Estimated 56 mL/min (0-300); Creatinine,Serum 0.76 mg/dL (0.70-1.30); Estimated Glomerular Filt Rate 100 ml/min (>60); GFR (African American) 121 ML/MIN (>60); Globulin 3.9 gm/dl (1.3-3.2); Glucose 97 mg/dL (74-106); Sodium 139 mmol/L (136-145)
[2017-06-18 16:14] LABS: Aspartate Amino Transferase 19 U/L (15-37); Potassium 4.3 mmoL/L (3.5-5.1)
--- NOTE | 2017-06-18 16:30 | HMH.EDDIZZ ---
ED Disposition Clinical Impression: Dizziness Disposition: Home, Self-Care Condition on Discharge: Good Referrals: Brian Atkinson MD [Primary Care Provider] - - Critical Care Critical Care Time: No Attestation: On 06/18/17, the high probability of a clinically significant, sudden or life threatening deterioration of the following system(s) required my full and direct attention, intervention and personal management. The time I documented below is in addition to time spent performing reported procedures but includes the following listed in this critical care notation. Medical Decision Making - Juan Inquiry Pt receiving controlled substance: No Juan was queried for this patient: No Vital Signs: 06/18/17 15:01 06/18/17 16:04 06/18/17 16:49 Temperature 98.4 F Temperature Source Tympanic Pulse Rate [Left Radial] 84 Respiratory Rate 16 Blood Pressure [Right Arm] 81/50 108/54 129/91 Blood Pressure Mean [Right Arm] 60 72 103 Blood Pressure Source [Right Arm] Automatic Cuff Blood Pressure Position [Right Arm] Sitting 02 Sat by Pulse Oximetry 94 L Oxygen Delivery Method Room Air - Lab Data Lab Results 06/18/17 15:27: WBC 9.4, RBC 5.51 D, Hgb 14.9 D, Hct 47.9, MCV 86.9 D, MCH 27.0 D, MCHC 31.0 L D, RDW 16.0 D, Plt Count 331 D, MPV 7.8, Neut % (Auto) 79.3, Lymph % (Auto) 10.7, [place] % (Auto) 4.9, Eos % (Auto) 4.3, Baso % (Auto) 0.8, Neut # (Auto) 7.5, Lymph # (Auto) 1.0, [place] # (Auto) 0.5, Eos # (Auto) 0.4, Baso # (Auto) 0.1 06/18/17 15:40: Sodium 139, Potassium 4.3 D, Chloride 100, Carbon Dioxide 32, Anion Gap 11.3, BUN 29 H D, Creatinine 0.76, Estimated Creat Clear 56, Estimated GFR 100, Est GFR ( Amer) 121, Glucose 97 D, Total Bilirubin 0.5, AST 19 D, ALT 18, Alkaline Phosphatase 89, Total Protein 7.0, Albumin 3.1 L D, Globulin 3.9 H, Albumin/Globulin Ratio 0.8 L 06/18/17 15:45: Blood Type O Positive, Rho(D) Type Cancelled, Antibody Screen Negative, Crossmatch (AHG) See Detail 06/18/17 16:39: Stool Occult Blood Negative 06/18/17 : Blood Type Confirm O Positive Result diagrams: 06/18/17 15:27 06/18/17 15:40 Orders (Tests/Meds): ED MEDICATIONS Discontinued Medications Generic Name Dose Route Start Last Admin Trade Name Bre PRN Reason Stop Dose Admin Sodium Chloride 1,000 mls @ 999 mls/hr 06/18/17 15:30 06/18/17 15:32 Sod Chlor 0.9% 1000ml Bag IV 06/18/17 16:30 999 mls/hr .Q1H1M RICHARD Administration ORDERS Category Date Time Status Red Blood Cells Stat [facility] 06/18/17 15:45 Results Type and Screen Stat [facility] 06/18/17 15:45 Results Comprehensive Metabolic Panel Stat Lab 06/18/17 15:40 Results Medical Decision Narrative: Note that the 6.[address] Crow office appears to be incorrect, it was 14.9 on recheck and his previous Hgb were all wnl Dizzy HPI - General Chief Complaint: Dizziness Stated Complaint: low blood, sent by Dr Xie Time Seen by Provider: 06/18/17 15:00 Mode of Arrival: Ambulatory Limitations: No Limitations Description of Symptoms (Recalled from ER Triage Doc. by RN): seen at dr crow office, went home after appt and doctors office called him and told him to come to ER because his blood was low. pt reports dizziness - History of Present Illness MD complaint: lightheadedness Timing: gradual onset Description: lightheadedness History of similar episodes: No History of trauma: No Exacerbating factors: nothing Associated symptoms: denies other symptoms - Related Data Home Medications Medication Instructions Recorded Confirmed aspirin 81 mg tablet,delayed 81 mg PO DAILY 04/12/17 06/18/17 release oxybutynin chloride 5 mg tablet 5 mg PO BID 04/12/17 06/18/17 ropinirole 0.5 mg tablet 0.5 mg PO TID 04/12/17 06/18/17 Clopidogrel Bisulfate [Plavix 75mg 75 mg PO DAILY 05/18/17 06/18/17 Tab] Hydrocodone/Acetaminophen 1 each PO Q6HP PRN 05/18/17 06/18/17 [Hydrocodone-Acetamin 10-325
[2017-06-18 16:44] LABS: Basophils # 0.1 K/mm3 (0-0.2); Basophils % 0.8 % (0.1-2.0); Eosinophils # 0.4 K/mm3 (0.0-0.4); Eosinophils % 4.3 % (0.1-12.0); Hematocrit 47.9 % (42.0-52.0); Lymphocytes % 10.7 K/mm3 (10-50); Mean Corpuscular Volume 86.9 fl (80-94); Mean Platelet Volume 7.8 fl (7.4-10.4); Monocytes # 0.5 K/mm3 (0.1-1.0); Monocytes % 4.9 % (1.7-9.3); Neutrophils # 7.5 K/mm3 (1.8-7.8); Neutrophils % 79.3 % (37.0-80.0); Platelet Count 331 K/mm3 (142-424); Red Blood Count 5.51 M/mm3 (4.60-6.20); White Blood Count 9.4 K/mm3 (4.8-10.8)
[2017-06-18 16:49] VITALS: BP 129/91
[2017-06-18 17:00] LABS: Hemoglobin 14.9 g/dL (14.1-18.0)
--- NOTE | 2017-06-18 17:33 | PC.NURSE ---
lab here for redraw
--- NOTE | 2017-06-18 18:43 | PC.NURSE ---
SPOKE WITH PT AND GRAND DAUGHTER WHO BOTH REPORTS THAT PT DID NOT HAVE BLOOD DRAWN TODAY. UNSURE OF WHERE THE 6.4 HGB RESULT CAME FROM. LAB STAFF RE-DRAWS TO CONFIRM THE LEVEL DRAWN FROM MY TUBE AND CONFIRMS THAT IT IS THE SAME AMOUNT. SPOKE WITH DR KELLY ABOUT THIS AND ORDERS TO CANCEL THE BLOOD TRANSFUSION.
[2017-06-18 18:54] LABS: Occult Blood,Stool Negative (Negative)
[2017-06-18 19:08] VITALS: BP 107/58; PULSE 76; RESP 18; TEMP 36.8; O2SAT 96
[2017-06-18 21:13] LABS: Calcium 8.4 mg/dL (8.5-10.1)
== END 2017-06-18 19:09 | disposition home or self-care (01) ==
PROVIDERS: Emergency Provider Family Medicine; Family Provider Emergency Medicine; PCP Emergency Medicine
DX: R42 Dizziness and giddiness (principal); I95.9 Hypotension, unspecified; J44.9 Chronic obstructive pulmonary disease, unspecified; I25.10 Atherosclerotic heart disease of native coronary artery without angina pectoris; E11.9 Type 2 diabetes mellitus without complications; E78.5 Hyperlipidemia, unspecified; Z95.0 Presence of cardiac pacemaker; Z88.6 Allergy status to analgesic agent; Z79.82 Long term (current) use of aspirin
CPT/HCPCS: 36415; 80053; 80061; 82272; 85025; 86850; 93306; 96365; 96374; 99283; G0328

== ENCOUNTER → 2017-06-28 08:58 | Outpatient (CLI) | payer MEDICARE, OTHER, SELFPAY ==
[2017-06-28 11:02] LABS: Anion Gap 10.1 mEq/L (5-15); Blood Urea Nitrogen 27 mg/dL (7-18); Carbon Dioxide 31 mmol/L (21.0-32.0); Chloride 100 mmol/L (98-107); Creatinine,Serum 0.71 mg/dL (0.70-1.30); Estimated Glomerular Filt Rate 108 ml/min (>60); GFR (African American) 131 ML/MIN (>60); Glucose 87 mg/dL (74-106); Potassium 5.1 mmoL/L (3.5-5.1); Sodium 136 mmol/L (136-145)
== END ==
PROVIDERS: Visit Provider Physician Assistant
DX: I50.20 Unspecified systolic (congestive) heart failure (principal); Z95.810 Presence of automatic (implantable) cardiac defibrillator; J44.9 Chronic obstructive pulmonary disease, unspecified; I25.5 Ischemic cardiomyopathy
CPT/HCPCS: 36415; 80048; 83880

== ENCOUNTER → 2017-08-11 12:44 | Outpatient (CLI) | payer MEDICARE, OTHER, SELFPAY ==
--- NOTE | 2017-08-11 12:49 | XR_ITS ---
XR chest 2V HISTORY: ITS.REASON: dyspnea, cough ORDERING PHYSICIAN: KAVYA Rowland PATIENT AGE: 77 years COMPARISON: 06/11/2017 FINDINGS: Prior CABG. Bipolar pacemaker is present from left subclavian approach. Chronic changes are present in the lower lobes. There is hyperinflation with attenuation of the peripheral pulmonary vessels consistent with COPD. There is chronic pleural thickening on the left with calcified pleural plaque. No acute bony anomalies. IMPRESSION: COPD with postsurgical changes and chronic calcified pleural plaque on the left. No change with no acute finding
[2017-08-11 13:40] LABS: Basophils # 0.1 K/mm3 (0-0.2); Basophils % 1.4 % (0.1-2.0); Eosinophils # 0.2 K/mm3 (0.0-0.4); Eosinophils % 4.6 % (0.1-12.0); Hematocrit 42.5 % (42.0-52.0); Hemoglobin 13.3 g/dL (14.1-18.0); Lymphocytes # 0.8 K/mm3 (0.7-4.5); Lymphocytes % 15.1 K/mm3 (10-50); Mean Corpuscular HGB Conc 31.2 g/dL (31.8-35.4); Mean Corpuscular Hemoglobin 27.6 pg (27.0-31.2); Mean Corpuscular Volume 88.3 fl (80-94); Mean Platelet Volume 7.5 fl (7.4-10.4); Monocytes # 0.4 K/mm3 (0.1-1.0); Monocytes % 6.6 % (1.7-9.3); Neutrophils # 3.8 K/mm3 (1.8-7.8); Neutrophils % 72.4 % (37.0-80.0); Platelet Count 251 K/mm3 (142-424); Red Blood Count 4.81 M/mm3 (4.60-6.20); Red Cell Distribution Width 15.4 % (11.5-17.5); White Blood Count 5.3 K/mm3 (4.8-10.8)
[2017-08-11 13:49] LABS: Anion Gap 11.2 mEq/L (5-15); Blood Urea Nitrogen 25 mg/dL (7-18); Carbon Dioxide 31 mmol/L (21.0-32.0); Chloride 103 mmol/L (98-107); Creatinine,Serum 0.77 mg/dL (0.70-1.30); Estimated Glomerular Filt Rate 98 ml/min (>60); GFR (African American) 119 ML/MIN (>60); Glucose 63 mg/dL (74-106); Potassium 4.2 mmoL/L (3.5-5.1); Sodium 141 mmol/L (136-145)
== END ==
PROVIDERS: PCP Physician Assistant; Visit Provider Physician Assistant
DX: I95.9 Hypotension, unspecified (principal); I50.22 Chronic systolic (congestive) heart failure; R06.02 Shortness of breath; E78.4 Other hyperlipidemia; J44.1 Chronic obstructive pulmonary disease with (acute) exacerbation
CPT/HCPCS: 36415; 71046; 80048; 83880; 85025

== ENCOUNTER 2017-08-20 07:24 | Inpatient (IN) ==
[2017-08-20 08:06] LABS: Basophils # 0.1 K/mm3 (0-0.2); Basophils % 0.8 % (0.1-2.0); Eosinophils # 0.3 K/mm3 (0.0-0.4); Eosinophils % 3.5 % (0.1-12.0); Hematocrit 44.9 % (42.0-52.0); Hemoglobin 14.6 g/dL (14.1-18.0); Lymphocytes # 1.2 K/mm3 (0.7-4.5); Lymphocytes % 15.9 K/mm3 (10-50); Mean Corpuscular HGB Conc 32.5 g/dL (31.8-35.4); Mean Corpuscular Hemoglobin 28.2 pg (27.0-31.2); Mean Corpuscular Volume 86.8 fl (80-94); Mean Platelet Volume 7.8 fl (7.4-10.4); Monocytes # 0.4 K/mm3 (0.1-1.0); Monocytes % 5.1 % (1.7-9.3); Neutrophils # 5.5 K/mm3 (1.8-7.8); Neutrophils % 74.8 % (37.0-80.0); Platelet Count 363 K/mm3 (142-424); Red Blood Count 5.17 M/mm3 (4.60-6.20); Red Cell Distribution Width 14.7 % (11.5-17.5); White Blood Count 7.3 K/mm3 (4.8-10.8)
[2017-08-20 08:35] LABS: Anion Gap 8.9 mEq/L (5-15); Potassium 3.9 mmoL/L (3.5-5.1)
--- NOTE | 2017-08-20 15:54 | Pharmacy Consult Notes ---
[facility] Pharmacy VTE Monitoring - Patient Demographics Allergies/Adverse Reactions: Patient Allergies morphine [MORPHINE] Allergy (Unknown, Verified 07/15/17 09:07) Height: 1.73 m Weight: 62.142 kg - VTE Risk Labs: VTE Related Lab Results Hgb 14.6 g/dL (14.1-18.0) 08/20/17 07:50 Hct 44.9 % (42.0-52.0) 08/20/17 07:50 Plt Count 363 K/mm3 (142-424) 08/20/17 07:50 BUN 33 mg/dL (7-18) H 08/20/17 08:16 Creatinine 0.78 mg/dL (0.70-1.30) 08/20/17 08:16 Estimated Creat Clear 55 mL/min (0-300) 08/20/17 08:16
--- NOTE | 2017-08-20 16:04 | Consult Report ---
History of Present Illness Consult date: 08/20/17 Requesting physician: Brian Atkinson Consult reason: atrial fibrillation, shortness of breath Chief complaint: Confusion, A. fib with RVR Additional Medical History:: 1. Coronary artery disease A. History of coronary bypass grafting, 2006 B. History of non-STEMI with drug-eluting stent placed to saphenous vein graft to the RCA, 03/2016. C. Non-STEMI with additional drug-eluting stent placed to saphenous vein graft to RCA, 04/2017 2. Cardiomyopathy, EF 20 percent at time of non-STEMI, 03/2015 A. AICD implantation, 04/2017, [place] 3. Tobacco use A. Chronic obstructive pulmonary disease 4. Hypertension 5. Hyperlipidemia 6. New onset A. fib with RVR, 08/20/2017 A. CHADS-VASC score of 4, however he is a poor candidate for anticoagulation. 7. DM type 2 History of present illness: 77 yo WM was here as outpatient for cardiac cath. He received ZAIRA to SVG to RCA without complications. In Recovery patient noted to have developed A. fib with RVR which has not responded to IV digoxin. Pt has some confusion which is multifactorial with low BP in the 60-70's systolically. Will have anesthesia sedate patient and proceed with cardioversion via his AICD. Pt is a poor candidate for chronic anticoagulation due to high fall risk. [facility] History Medical History: Reports:: Chronic Obstructive Pulmonary Disease (COPD), Coronary Artery Disease, Diabetes Mellitus Type 2, Hyperlipidemia, Internal Pacemaker Denies:: Cancer, Diabetes Mellitus Type 1, MRSA, Seizures Other Surgeries: Yes: Appendectomy, CABG, Cardiac Catheterization, Coronary Stent, Open Heart Surgery, Pacemaker, Other Amputation: No Fractures: No - *Social History Smoking Status: Current every day smoker Tobacco Type: cigarettes # Packs/Day (cigarettes): 1 #Yrs smoked (if former smoker): 30 Alcohol Intake: never Alcohol Intake Frequency:: other Substance Use Type: denies use Occupational Status: retired Housing: house Household Members: spouse - Psychiatric History Expresses thoughts of harming self/others: None Suicide Plan Description: No Plan *Family Hx:: Non-contributory Meds Home Medications Medication Instructions Recorded Confirmed Type aspirin 81 mg tablet,delayed 81 mg PO DAILY 04/12/17 06/18/17 History release ropinirole 0.5 mg tablet 0.5 mg PO TID 04/12/17 06/18/17 History Clopidogrel Bisulfate [Plavix 75mg 75 mg PO DAILY 05/18/17 06/18/17 History Tab] Hydrocodone/Acetaminophen 1 each PO Q6HP PRN 05/18/17 06/18/17 History [Hydrocodone-Acetamin 10-325 mg] Pantoprazole Sodium [Protonix 40mg 40 mg PO DAILY 05/18/17 06/18/17 History tablet] Atorvastatin Calcium [Lipitor 80mg 80 mg PO HS 05/19/17 06/18/17 History Tablet] Cetirizine HCl 10 mg PO DAILY 05/19/17 06/18/17 History Losartan Potassium 100 mg PO DAILY 05/19/17 06/18/17 History Montelukast Sodium [Montelukast 10 mg PO HS 05/19/17 06/18/17 History 10mg Tab] raNITIdine HCl [Ranitidine HCl] 150 mg PO BID 05/19/17 06/18/17 History furosemide 40 mg tablet 80 mg PO DAILY tab 06/11/17 06/18/17 History spironolactone 25 mg tablet 50 mg PO DAILY tab 06/11/17 06/18/17 History Carvedilol [Carvedilol 3.125mg Tab] 3.125 mg PO BID 06/18/17 06/18/17 History Fluticasone/Vilanterol [Breo 1 each IH DAILY 06/18/17 06/18/17 History Ellipta 100-25 Mcg INH] Lisinopril [Lisinopril 2.5mg Tab] 2.5 mg PO DAILY 06/18/17 06/18/17 History Allergies Allergy/AdvReac Type Severity Reaction Status Date / Time morphine [MORPHINE] Allergy Unknown Verified 07/15/17 09:07 Review of Systems - *Cardiovascular Reports shortness of breath with activity - *Respiratory Reports shortness of breath with activity - *Gastrointestinal Denies abdominal pain - *Musculoskeletal Reports back pain Exam Vital signs and Labs for Last 24 Hours: Temp Pulse Resp BP Pulse Ox 98 F 116 H 16 97/42 92 L 08/20/17 07:59 08/20/17 14:45 08/20/17 14:45 08/20/17 14:45 08/20/17 14:45 Laboratory Results - last 24 hr 08/20/17 07:50: WBC 7.3, RBC 5.17, Hgb 14.6, Hct 44.9, MCV 86.8, MCH 28.2, MCHC 32.5, RDW 14.7, Plt Count 363, MPV 7.8, Neut % (Auto) 74.8, Lymph % (Auto) 15.9 , [place] % (Auto) 5.1, Eos % (Auto) 3.5, Baso % (Auto) 0.8, Neut # (Auto) 5.5, Lymph # (Auto) 1.2, [place] # (Auto) 0.4, Eos # (Auto) 0.3, Baso # (Auto) 0.1 08/20/17 08:16: Sodium 139, Potassium 3.9, Chloride 104, Carbon Dioxide 30, Anion Gap 8.9, BUN 33 H, Creatinine 0.78, Estimated Creat Clear 55, Estimated GFR 97, Est GFR ( Amer) 117, Glucose 95 08/20/17 10:00: ABG O2 Sat (Measured) 68.3 L, POC VBG O2 Sat (Yvette) 71.4 L 08/20/17 11:25: Activated Clotting Time 342 H* I & O for Last 24 hours: Intake & Output 08/18/17 08/19/17 08/20/17 08/21/17 11:59 11:59 11:59 11:59 Weight 137 lb - *Routine Neck Exam Present: JVD - *Routine Respiratory Exam Present: decreased breath sounds, rales, rhonchi - *Routine Cardiovascular Exam Present: tachycardia, irregularly irregular - *Routine Extremities Exam Absent: edema Assessment and Plan (1) Atrial fibrillation with RVR Current visit: Yes Status: Acute Category: Medical Code(s): I48.91 - Unspecified atrial fibrillation (2) Automatic implantable cardiac defibrillator in situ Current visit: No Status: Chronic Category: Medical Code(s): Z95.810 - Presence of automatic (implantable) cardiac defibrillator (3) CAD (coronary artery disease) Current visit: No Status: Chronic Qualifiers: Coronary Disease-Associated Artery/Lesion type: [place] artery [place] vs. transplanted heart: [place] heart Associated angina: with unstable angina Qualified Code(s): I25.110 - Atherosclerotic heart disease of [place] coronary artery with unstable angina pectoris Category: Medical Code(s): I25.10 - Atherosclerotic heart disease of [place] coronary artery without angina pectoris (4) Hypotension Current visit: No Status: Chronic Qualifiers: Hypotension type: unspecified hypotension type Qualified Code(s): I95.9 - Hypotension, unspecified Category: Medical Code(s): I95.9 - Hypotension, unspecified (5) Stented coronary artery Current visit: No Status: Chronic Category: Surgical Code(s): Z95.5 - Presence of coronary angioplasty implant and graft (6) Systolic heart failure Current visit: No Status: Chronic Qualifiers: Heart failure chronicity: chronic Qualified Code(s): I50.22 - Chronic systolic (congestive) heart failure Category: Medical Code(s): I50.20 - Unspecified systolic (congestive) heart failure - Assessment and plan all Dx Assessment and Plan for all problems:: Patient has developed atrial fibrillation with a rapid ventricular response, symptomatic with confusion and low BP. He was noted to be in sinus rhythm earlier today. Patient is a poor anticoagulation candidate due to high risk for falls. Will therefore proceed with cardioversion to restore sinus rhythm to help with blood pressure stabilization and confusion. Pt was successfully cardioverted to NSR, with the help of anesthesia, using a single 20 J shock via his AICD. Will switch coreg to metoprolol 12.5 mg BID. Hold ARB for now. Continue ASA and plavix along with atorvastatin. Requip for restless legs and leg cramps.
[2017-08-20 16:17] LABS: Microscopic, Urine URINE MICROSCOPIC (MICROSCOPIC)
[2017-08-20 16:25] LABS: Appearance,Urine CLEAR (Clear); Blood, Urine Negative (Negative); Color,Urine YELLOW (Yellow); Glucose,Urine (UA) Negative (Negative); Ketones,Urine Negative (Negative); Leukocyte Esterase,Urine Negative (Negative); Protein,Urine Negative (Negative); Specific Gravity, Urine 1.015 (1.005-1.030); Urobilinogen,Urine 0.2 EU/dl (0.2)
[2017-08-20 16:32] LABS: Bilirubin,Urine 1+ (Negative)
[2017-08-20 16:45] LABS: Bacteria,Urine Trace /lpf; Mucus,Urine 1+ /lpf; Squamous Epithelial Cell,Urine Occasional #/hpf (0-5)
--- NOTE | 2017-08-20 17:08 | Progress Note ---
[facility] Anesthesia Checklist - Patient Identification Patient Identification: Arm Band, Verbal (Name & ) - Structural Data Admitted From: Inpatient Planned Operative Procedure/s: cardioversion Consent for Planned Operative Procedure(s) Verified: Yes Verified Documents: Surgical Consent, History and Physical - NPO Status Verified Time NPO: 00:00 - Additional verifications Patient : No Anesthesia Reactions: No Hx Blood Transfusions: Yes Blood Transfusion Reaction: No Cephalosporin Allergy: No Previous Colonoscopy: No - Cardiovascular Assessment Pulse Strength: Weak Pulse Rhythm: Irregular Peripheral Edema: No - Airway Assessment C-Spine Mobility Assessed: Yes TMJ Mobility Assessed: Yes Dentition: Edentulous - Neurological Assessment Level of Consciousness: Lethargic Hx Seizures: No Numbness or tingling in extremities: No - Anesthesia Plan Anesthesia Risk discussed: Yes Anesthesia Plan: Verified ASA Class: III Anesthesia Type: [facility] Anesthesia HX I have reviewed the patient's past medical history: Yes Medical History: Reports:: Chronic Obstructive Pulmonary Disease (COPD), Coronary Artery Disease, Diabetes Mellitus Type 2, Hyperlipidemia, Internal Pacemaker Denies:: Cancer, Diabetes Mellitus Type 1, MRSA, Seizures Other Surgeries: Yes: Appendectomy, CABG, Cardiac Catheterization, Coronary Stent, Open Heart Surgery, Pacemaker, Other Amputation: No Fractures: No *Family Hx:: Non-contributory
--- NOTE | 2017-08-20 17:24 | Procedure Note ---
[facility] Cardioversion Date: 08/20/17 Provider:: KAVYA Rowland Procedure Performed:: Informed consent was obtained from the patient's spouse. After anesthesia sedated the patient, a single 20 J shock through his ICD was delivered which converted him from atrial fibrillation to sinus rhythm. Patient tolerated the procedure without complications. Diagnosis:: Symptomatic atrial fibrillation with a rapid ventricular response Hypertension Confusion Procedure Summary:: Successful electrical cardioversion to sinus rhythm Complications:: None Conculsion:: Successful electrical cardioversion to normal sinus rhythm.
--- NOTE | 2017-08-20 19:57 | History & Physical Report ---
*Admission Date: 08/20/17 *Chief complaint: palpatations *History of present illness: pt with card cath 1. Coronary artery disease A. History of coronary bypass grafting, 2006 B. History of non-STEMI with drug-eluting stent placed to saphenous vein graft to the RCA, 03/2016. C. Non-STEMI with additional drug-eluting stent placed to saphenous vein graft to RCA, 04/2017 2. Cardiomyopathy, EF 20 percent at time of non-STEMI, 03/2015 A. AICD implantation, 04/2017, [place] 3. Tobacco use A. Chronic obstructive pulmonary disease 4. Hypertension 5. Hyperlipidemia 6. New onset A. fib with RVR, 08/20/2017 A. CHADS-VASC score of 4, however he is a poor candidate for anticoagulation. 7. DM type 2 History of present illness: 77 yo WM was here as outpatient for cardiac cath. He received ZAIRA to SVG to RCA without complications. In Recovery patient noted to have developed A. fib with RVR which has not responded to IV digoxin. Pt has some confusion which is multifactorial with low BP in the 60-70's systolically. Will have anesthesia sedate patient and proceed with cardioversion via his AICD. Pt is a poor candidate for chronic anticoagulation due to high fall risk. [facility] History I have reviewed the patient's past medical history: Yes Medical History: Reports:: Chronic Obstructive Pulmonary Disease (COPD), Coronary Artery Disease, Diabetes Mellitus Type 2, Hyperlipidemia, Internal Pacemaker Denies:: Cancer, Diabetes Mellitus Type 1, MRSA, Seizures Other Medical History: Denies: Blood Transfusion Reaction Other Surgeries: Yes: Appendectomy, CABG, Cardiac Catheterization, Coronary Stent, Open Heart Surgery, Pacemaker, Other Amputation: No Fractures: No - *Social History Educational Level: Completed High School Smoking Status: Current every day smoker Tobacco Type: cigarettes # Packs/Day (cigarettes): 1 #Yrs smoked (if former smoker): 30 Alcohol Intake: never Alcohol Intake Frequency:: other Substance Use Type: denies use Occupational Status: retired Housing: house Household Members: spouse - Psychiatric History Expresses thoughts of harming self/others: None Suicide Plan Description: No Plan *Family Hx:: Non-contributory Review of Systems - Review of Systems Review of systems:: pertinent systems reviewed and negative unless documented below - Constitutional Denies fever(s) - Eyes Denies change in vision - ENT Denies sore throat - *Cardiovascular Reports shortness of breath, Reports rapid, pounding, or irregular heartbeat, Denies chest pain at rest - *Respiratory Denies cough, Denies coughing up blood - *Gastrointestinal Denies black, tarry stools - *Genitourinary Denies blood in urine - Integumentary/Breasts Denies rash - *Neurologic Reports weakness, Denies localized weakness - Psychiatric Denies anxiety Meds Home Medications Medication Instructions Recorded Confirmed Type aspirin 81 mg tablet,delayed 81 mg PO DAILY 04/12/17 08/20/17 History release ropinirole 0.5 mg tablet 0.5 mg PO TID 04/12/17 08/20/17 History Clopidogrel Bisulfate [Plavix 75mg 75 mg PO DAILY 05/18/17 08/20/17 History Tab] Hydrocodone/Acetaminophen 1 each PO Q6HP PRN 05/18/17 08/20/17 History [Hydrocodone-Acetamin 10-325 mg] Pantoprazole Sodium [Protonix 40mg 40 mg PO DAILY 05/18/17 08/20/17 History tablet] Atorvastatin Calcium [Lipitor 80mg 80 mg PO HS 05/19/17 08/20/17 History Tablet] Cetirizine HCl 10 mg PO DAILY 05/19/17 08/20/17 History Losartan Potassium 100 mg PO DAILY 05/19/17 08/20/17 History Montelukast Sodium [Montelukast 10 mg PO HS 05/19/17 08/20/17 History 10mg Tab] raNITIdine HCl [Ranitidine HCl] 150 mg PO BID 05/19/17 08/20/17 History furosemide 40 mg tablet 80 mg PO DAILY tab 06/11/17 08/20/17 History spironolactone 25 mg tablet 50 mg PO DAILY tab 06/11/17 08/20/17 History Carvedilol [Carvedilol 3.125mg Tab] 3.125 mg PO BID 06/18/17 08/20/17 History Fluticasone/Vilanterol [Breo 1 each IH DAILY 06/18/17 08/20/17 History Ellipta 100-25 Mcg INH] Lisinopril [Lisinopril 2.5mg Tab] 2.5 mg PO DAILY 06/18/17 08/20/17 History Oxybutynin Chloride [Oxybutynin 5 mg PO ONCE 08/20/17 08/20/17 History Chloride ER] Allergies Allergy/AdvReac Type Severity Reaction Status Date / Time morphine [MORPHINE] Allergy Unknown Verified 07/15/17 09:07 Exam Vital signs and Labs for Last 24 Hours: Temp Pulse Resp BP Pulse Ox 98.1 F 96 H 16 103/53 97 08/20/17 18:00 08/20/17 19:00 08/20/17 19:00 08/20/17 19:00 08/20/17 19:00 Laboratory Results - last 24 hr 08/20/17 07:50: WBC 7.3, RBC 5.17, Hgb 14.6, Hct 44.9, MCV 86.8, MCH 28.2, MCHC 32.5, RDW 14.7, Plt Count 363, MPV 7.8, Neut % (Auto) 74.8, Lymph % (Auto) 15.9 , [place] % (Auto) 5.1, Eos % (Auto) 3.5, Baso % (Auto) 0.8, Neut # (Auto) 5.5, Lymph # (Auto) 1.2, [place] # (Auto) 0.4, Eos # (Auto) 0.3, Baso # (Auto) 0.1 08/20/17 08:16: Sodium 139, Potassium 3.9, Chloride 104, Carbon Dioxide 30, Anion Gap 8.9, BUN 33 H, Creatinine 0.78, Estimated Creat Clear 55, Estimated GFR 97, Est GFR ( Amer) 117, Glucose 95 08/20/17 10:00: ABG O2 Sat (Measured) 68.3 L, POC VBG O2 Sat (Yvette) 71.4 L 08/20/17 11:25: Activated Clotting Time 342 H* 08/20/17 13:45: Urine Color Yellow, Urine Appearance Clear, Urine pH 6.0, Ur Specific [place] 1.015, Urine Protein Negative, Urine Glucose (UA) Negative, Urine Ketones Negative, Urine Blood Negative, Urine Nitrate Negative, Urine Bilirubin 1+ A, Urine Urobilinogen 0.2, Ur Leukocyte Esterase Negative, Urine RBC None, Urine WBC 3-5, Ur Squamous Epith Cells Occasional, Urine Bacteria Trace, Urine Mucus 1+ I & O for Last 24 hours: Intake & Output 08/18/17 08/19/17 08/20/17 08/21/17 11:59 11:59 11:59 11:59 Intake Total 1000 / 1000 Balance 1000 / 1000 Weight 137 lb 135 lb 0.001 oz - Constitutional no acute distress, thin - *Routine HEENT Exam Head: Present: normocephalic Eye: Present: EOMI, PERRL ENT: Present: mucous membranes dry - *Routine Neck Exam Absent: JVD - *Routine Respiratory Exam Present: wheezes - *Routine Cardiovascular Exam Present: RRR, murmur, S4 - *Routine Abdominal Exam Present: soft - *Routine Extremities Exam Absent: edema - *Routine Skin Exam Present: intact - *Routine Neurological Exam Present: alert, oriented X3, CN II-XII intact - Routine Psychiatric Exam Present: normal affect H&P: Result - Labs Labs: Short CBC 08/20/17 Range/Units 07:50 WBC 7.3 (4.8-10.8) K/mm3 Hgb 14.6 (14.1-18.0) g/dL Hct 44.9 (42.0-52.0) % Plt Count 363 (142-424) K/mm3 BMP 08/20/17 08:16 Sodium 139 Potassium 3.9 Chloride 104 Carbon Dioxide 30 BUN 33 H Creatinine 0.78 Glucose 95 Urine 08/20/17 Range/Units 13:45 Urine Color Yellow (Yellow) Urine Appearance Clear (Clear) Urine pH 6.0 (5.0-8.5) Ur Specific [place] 1.015 (1.005-1.030) Urine Protein Negative (Negative) Urine Glucose (UA) Negative (Negative) Assessment and Plan (1) Atrial fibrillation with RVR Current visit: Yes Status: Acute Category: Medical Code(s): I48.91 - Unspecified atrial fibrillation (2) Automatic implantable cardiac defibrillator in situ Current visit: No Status: Chronic Category: Medical Code(s): Z95.810 - Presence of automatic (implantable) cardiac defibrillator (3) CAD (coronary artery disease) Current visit: No Status: Chronic Qualifiers: Coronary Disease-Associated Artery/Lesion type: [place] artery [place] vs. transplanted heart: [place] heart Associated angina: with unstable angina Qualified Code(s): I25.110 - Atherosclerotic heart disease of [place] coronary artery with unstable angina pectoris Category: Medical Code(s): I25.10 - Atherosclerotic heart disease of [place] coronary artery without angina pectoris (4) Hypotension Current visit: No Status: Chronic Qualifiers: Hypotension type: unspecified hypotension type Qualified Code(s): I95.9 - Hypotension, unspecified Category: Medical Code(s): I95.9 - Hypotension, unspecified (5) Stented coronary artery Current visit: No Status: Chronic Category: Surgical Code(s): Z95.5 - Presence of coronary angioplasty implant and graft (6) Systolic heart failure Current visit: No Status: Chronic Qualifiers: Heart failure chronicity: chronic Qualified Code(s): I50.22 - Chronic systolic (congestive) heart failure Category: Medical Code(s): I50.20 - Unspecified systolic (congestive) heart failure
[2017-08-21 09:41] VITALS: BP 113/59
--- NOTE | 2017-08-21 09:43 | Discharge Summary ---
General - General Admission date:: 08/20/17 Discharge date: 08/21/17 HPI HPI: pt with card cath 1. Coronary artery disease A. History of coronary bypass grafting, 2006 B. History of non-STEMI with drug-eluting stent placed to saphenous vein graft to the RCA, 03/2016. C. Non-STEMI with additional drug-eluting stent placed to saphenous vein graft to RCA, 04/2017 2. Cardiomyopathy, EF 20 percent at time of non-STEMI, 03/2015 A. AICD implantation, 04/2017, [place] 3. Tobacco use A. Chronic obstructive pulmonary disease 4. Hypertension 5. Hyperlipidemia 6. New onset A. fib with RVR, 08/20/2017 A. CHADS-VASC score of 4, however he is a poor candidate for anticoagulation. 7. DM type 2 History of present illness: 77 yo WM was here as outpatient for cardiac cath. He received ZAIRA to SVG to RCA without complications. In Recovery patient noted to have developed A. fib with RVR which has not responded to IV digoxin. Pt has some confusion which is multifactorial with low BP in the 60-70's systolically. Will have anesthesia sedate patient and proceed with cardioversion via his AICD. Pt is a poor candidate for chronic anticoagulation due to high fall risk. Hospital Course Hospital Course: pt did well overnight and reports feeling ok this am - ocedure Performed:: Informed consent was obtained from the patient's spouse. After anesthesia sedated the patient, a single 20 J shock through his ICD was delivered which converted him from atrial fibrillation to sinus rhythm. Patient tolerated the procedure without complications. Diagnosis:: Symptomatic atrial fibrillation with a rapid ventricular response Hypertension Confusion Procedure Summary:: Successful electrical cardioversion to sinus rhythm Complications:: None Conculsion:: Successful electrical cardioversion to normal sinus rhythm. Objective Vital signs: Temp Pulse Resp BP Pulse Ox 97.0 F L 74 20 113/59 100 08/21/17 07:57 08/21/17 09:40 08/21/17 09:40 08/21/17 09:40 08/21/17 09:40 no acute distress, thin - *Routine HEENT Exam Head: Present: normocephalic Eye: Present: EOMI, PERRL ENT: Present: mucous membranes dry - *Routine Neck Exam Present: supple - *Routine Respiratory Exam Present: wheezes - *Routine Cardiovascular Exam Present: RRR, murmur - *Routine Abdominal Exam Present: soft - *Routine Extremities Exam Absent: calf tenderness - *Routine Skin Exam Present: intact - *Routine Neurological Exam Present: alert, oriented X3, CN II-XII intact - Routine Psychiatric Exam Present: normal affect Results Labs on day of discharge: Labs from last 24 hours 08/21/17 08/21/17 08/20/17 05:30 05:30 13:45 Activated Clotting Time ABG O2 Sat (Measured) POC VBG O2 Sat (Yvette) Creatinine 0.84 Estimated Creat Clear 54 Estimated GFR 89 Est GFR ( Amer) 107 Urine Color Yellow Urine Appearance Clear Urine pH 6.0 Ur Specific [place] 1.015 Urine Protein Negative Urine Glucose (UA) Negative Urine Ketones Negative Urine Blood Negative Urine Nitrate Negative Urine Bilirubin 1+ A Urine Urobilinogen 0.2 Ur Leukocyte Esterase Negative Urine RBC None Urine WBC 3-5 Ur Squamous Epith Cells Occasional Urine Bacteria Trace Urine Mucus 1+ Digoxin 1.33 08/20/17 08/20/17 11:25 10:00 Activated Clotting Time 342 H* ABG O2 Sat (Measured) 68.3 L POC VBG O2 Sat (Yvette) 71.4 L Creatinine Estimated Creat Clear Estimated GFR Est GFR ( Amer) Urine Color Urine Appearance Urine pH Ur Specific [place] Urine Protein Urine Glucose (UA) Urine Ketones Urine Blood Urine Nitrate Urine Bilirubin Urine Urobilinogen Ur Leukocyte Esterase Urine RBC Urine WBC Ur Squamous Epith Cells Urine Bacteria Urine Mucus Digoxin DS: Diagnosis - Discharge Diagnosis (1) Atrial fibrillation with RVR Status: Acute (2) Automatic implantable cardiac defibrillator in situ Status: Chronic (3) CAD (coronary artery disease) Status: Chronic (4) Hypotension Status: Chronic (5) Stented coronary artery Status: Chronic (6) Systolic heart failure Status: Chronic Discharge Plan - Patient Discharge Instructions ACTIVITY: Continue current activity DIET: continue same diet Patient Instructions: Coronary Artery Disease, Atrial Fibrillation, Cardiac Catheterization, Cardioversion, Smoking Cessation Associated with Decreases Risk of Complications After [place] - Follow up Plan Disposition: Home, Self-[facility] Medications: Home Medications Medication Instructions Recorded Confirmed Type aspirin 81 mg tablet,delayed 81 mg PO DAILY 04/12/17 08/20/17 History release ropinirole 0.5 mg tablet 0.5 mg PO TID 04/12/17 08/20/17 History Clopidogrel Bisulfate [Plavix 75mg 75 mg PO DAILY 05/18/17 08/20/17 History Tab] Hydrocodone/Acetaminophen 1 each PO Q6HP PRN 05/18/17 08/20/17 History [Hydrocodone-Acetamin 10-325 mg] Pantoprazole Sodium [Protonix 40mg 40 mg PO DAILY 05/18/17 08/20/17 History tablet] Atorvastatin Calcium [Lipitor 80mg 80 mg PO HS 05/19/17 08/20/17 History Tablet] Cetirizine HCl 10 mg PO DAILY 05/19/17 08/20/17 History Losartan Potassium 100 mg PO DAILY 05/19/17 08/20/17 History Montelukast Sodium [Montelukast 10 mg PO HS 05/19/17 08/20/17 History 10mg Tab] raNITIdine HCl [Ranitidine HCl] 150 mg PO BID 05/19/17 08/20/17 History furosemide 40 mg tablet 80 mg PO DAILY tab 06/11/17 08/20/17 History spironolactone 25 mg tablet 50 mg PO DAILY tab 06/11/17 08/20/17 History Carvedilol [Carvedilol 3.125mg Tab] 3.125 mg PO BID 06/18/17 08/20/17 History Fluticasone/Vilanterol [Breo 1 each IH DAILY 06/18/17 08/20/17 History Ellipta 100-25 Mcg INH] Lisinopril [Lisinopril 2.5mg Tab] 2.5 mg PO DAILY 06/18/17 08/20/17 History Oxybutynin Chloride [Oxybutynin 5 mg PO ONCE 08/20/17 08/20/17 History Chloride ER] Prescriptions/Medication Reconciliation: New Aspirin [Aspirin 81mg EC Tab] 81 mg PO DAILY #0 tablet. Atorvastatin Calcium [Lipitor 40mg Tablet] 40 mg PO HS tablet cloNIDine HCl [cloNIDine 0.1mg Tablet] 0.1 mg PO TIDP PRN tablet PRN Reason: Blood Pressure - High Clopidogrel Bisulfate [Plavix 75mg Tab] 75 mg PO DAILY tablet Clopidogrel Bisulfate [Plavix 75mg Tab] 75 mg PO DAILY tablet Ropinirole HCl [Requip 1mg Tablet] 1 mg PO TID tablet Metoprolol Tartrate [Lopressor 25mg tablet] 12.5 mg PO BID #60 tab Continue furosemide 40 mg tablet 80 mg PO DAILY tab spironolactone 25 mg tablet 50 mg PO DAILY tab aspirin 81 mg tablet,delayed release 81 mg PO DAILY ropinirole 0.5 mg tablet 0.5 mg PO TID tamsulosin 0.4 mg capsule 0.4 mg PO DAILY 90 Days #90 cap Digoxin 125 mcg PO DAILY #30 tablet Pantoprazole Sodium [Protonix 40mg tablet] 40 mg PO DAILY Clopidogrel Bisulfate [Plavix 75mg Tab] 75 mg PO DAILY Hydrocodone/Acetaminophen [Hydrocodone-Acetamin 10-325 mg] 1 each PO Q6HP PRN PRN Reason: Mild To Moderate Pain Atorvastatin Calcium [Lipitor 80mg Tablet] 80 mg PO HS raNITIdine HCl [Ranitidine HCl] 150 mg PO BID Lisinopril [Lisinopril 2.5mg Tab] 2.5 mg PO DAILY Fluticasone/Vilanterol [Breo Ellipta 100-25 Mcg INH] 1 each IH DAILY Oxybutynin Chloride [Oxybutynin Chloride ER] 5 mg PO ONCE Cetirizine HCl 10 mg PO DAILY Montelukast Sodium [Montelukast 10mg Tab] 10 mg PO HS Discontinued Carvedilol [Carvedilol 3.125mg Tab] 3.125 mg PO BID Losartan Potassium 100 mg PO DAILY
== END 2017-08-21 11:06 | disposition home or self-care (01) ==
LOC: CATHLAB 07:24 → 2ND 15:37
PROVIDERS: ADMIT Internal Medicine; ATTEND Emergency Medicine

== ENCOUNTER 2017-08-26 04:57 | Inpatient (IN) ==
[2017-08-26 05:34] LABS: Basophils # 0.1 K/mm3 (0-0.2); Eosinophils # 0.5 K/mm3 (0.0-0.4); Eosinophils % 5.5 % (0.1-12.0); Hematocrit 37.2 % (42.0-52.0); Hemoglobin 12.2 g/dL (14.1-18.0); Lymphocytes % 11.8 K/mm3 (10-50); Mean Corpuscular HGB Conc 32.9 g/dL (31.8-35.4); Mean Corpuscular Volume 85.2 fl (80-94); Mean Platelet Volume 7.7 fl (7.4-10.4); Monocytes # 0.5 K/mm3 (0.1-1.0); Monocytes % 5.4 % (1.7-9.3); Neutrophils # 6.3 K/mm3 (1.8-7.8); Neutrophils % 76.3 % (37.0-80.0); Platelet Count 334 K/mm3 (142-424); Red Blood Count 4.37 M/mm3 (4.60-6.20); Red Cell Distribution Width 14.5 % (11.5-17.5); White Blood Count 8.2 K/mm3 (4.8-10.8)
--- NOTE | 2017-08-26 06:21 | Emergency Department Note ---
ED Disposition Clinical Impression: Non-STEMI (non-ST elevated myocardial infarction), Acute exacerbation of chronic obstructive airways disease, Automatic implantable cardiac defibrillator in situ Congestive heart failure Qualifiers: Heart failure type: unspecified Heart failure chronicity: acute on chronic Qualified Code(s): I50.9 - Heart failure, unspecified Disposition: Admitted as Observation Condition on Discharge: Good Referrals: Patito Bailey PA [Primary Care Provider] - - Critical Care Critical Care Time: No Attestation: On 08/26/17, the high probability of a clinically significant, sudden or life threatening deterioration of the following system(s) required my full and direct attention, intervention and personal management. The time I documented below is in addition to time spent performing reported procedures but includes the following listed in this critical care notation. Medical Decision Making - Medical Records Medical records reviewed: Yes: I reviewed the patient's medical records. - Juan Inquiry Pt receiving controlled substance: No Vital Signs: 08/26/17 04:58 08/26/17 05:40 Temperature 98.3 F Temperature Source Oral Pulse Rate 65 Pulse Rate [Right Radial] 83 Respiratory Rate 22 Blood Pressure [Right Arm] 134/59 Blood Pressure Mean [Right Arm] 84 Blood Pressure Source [Right Arm] Automatic Cuff Blood Pressure Position [Right Arm] Sitting 02 Sat by Pulse Oximetry 100 98 Oxygen Delivery Method Nasal Cannula Nasal Cannula Oxygen Flow Rate (LPM) 2 2 - Lab Data Lab results reviewed: Yes: I reviewed the patient's lab results. Lab Results 08/26/17 05:20: WBC 8.2, RBC 4.37 L, Hgb 12.2 L, Hct 37.2 L, MCV 85.2, MCH 28.0 , MCHC 32.9, RDW 14.5, Plt Count 334, MPV 7.7, Neut % (Auto) 76.3, Lymph % (Auto ) 11.8, [place] % (Auto) 5.4, Eos % (Auto) 5.5, Baso % (Auto) 1.0, Neut # (Auto) 6.3, Lymph # (Auto) 1.0, [place] # (Auto) 0.5, Eos # (Auto) 0.5 H, Baso # (Auto) 0.1 08/26/17 05:20: Troponin I 3.17 H 08/26/17 05:20: Sodium 143, Potassium 3.7, Chloride 105, Carbon Dioxide 36 H, Anion Gap 5.7, BUN 24 H, Creatinine 0.80, Estimated Creat Clear 54, Estimated GFR 94, Est GFR ( Amer) 114, Glucose 108 H, Total Bilirubin 0.3, Direct Bilirubin 0.1, Indirect Bilirubin 0.2, AST 27, ALT 20, Alkaline Phosphatase 91, Total Protein 6.8, Albumin 2.6 L 08/26/17 05:20: Lactic Acid 0.6 08/26/17 05:20: B-Natriuretic Peptide 1590 H Result diagrams: 08/26/17 05:20 08/26/17 05:20 Orders (Tests/Meds): ED MEDICATIONS Generic Name Dose Route Start Last Admin Trade Name Freq PRN Reason Stop Dose Admin Sodium Chloride 1,000 mls @ 150 mls/hr 08/26/17 05:15 08/26/17 05:37 Sod Chlor 0.9% 1000ml Bag IV 09/25/17 05:14 150 mls/hr .[id number] RICHARD Administration Discontinued Medications Generic Name Dose Route Start Last Admin Trade Name Freq PRN Reason Stop Dose Admin Albuterol/Ipratropium 3 ml 08/26/17 05:21 08/26/17 05:40 Duoneb 3ml Neb IH 08/26/17 05:22 3 ml ONCE ONE Administration Aspirin 324 mg 08/26/17 05:21 08/26/17 05:37 Aspirin 81mg Chewable Tablet PO 08/26/17 05:22 324 mg ONCE ONE Administration Furosemide 40 mg 08/26/17 06:20 08/26/17 06:27 Lasix 40mg/4ml Vial IV 08/26/17 06:21 40 mg ONCE ONE Administration Methylprednisolone Sodium Succinate 125 mg 08/26/17 05:11 08/26/17 05:37 Solu-Medrol 125mg/2ml Vial IV 08/26/17 05:12 125 mg ONCE ONE Administration ORDERS Category Date Time Status Blood Culture Stat Micro 08/26/17 05:20 Received - Radiology Data #1 Image(s): Chest Image Reviewed: Yes I reviewed the patient's radiology image Preliminary Findings: Abnormal (copd) - ECG Data Tracing #1 I reviewed this ECG and interpreted as documented below: Arrhythmias present: sinus tach Ischemic changes: non-specific ST-T wave changes - Physician Consults Physician Consulted: ana m Reason -: Admission, Pt condition - KEENA Score for Non-STEMI Age of patient: 65 yrs or more Number of risk factors for CAD: Presence of 3 or more Prior coronary artery stenosis(seen in coronary angiography): Less than 50% ST-Segment deviation on ECG (more than 1 min): Absent Prior aspirin intake: ASA intake in the last 7 days Severe anginal chest pain: No or one episode in last 24 hours Elevated cardiac markers(CK-MB or troponin): Present Non-Stemi Risk Score: 4 Resp/SOB HPI - General Chief Complaint: Shortness of Breath/Dyspnea Stated Complaint: short of breath Time Seen by Provider: 08/26/17 05:05 Mode of Arrival: EMS Source of Information: Patient, EMS, Medical Record Limitations: No Limitations Description of Symptoms (Recalled from ER Triage Doc. by RN): Short of breath, ran out of his nebs, started at 8 pm, pain with cough and deep breath - History of Present Illness pt with sob with chest pain this am and no fever or rash MD Complaint: shortness of breath Onset (ago): hour(s) Severity: moderate Known history of: congestive heart failure Treatment prior to arrival: bronchodilator - Related Data Home oxygen amount: 2 liters Home Medications Medication Instructions Recorded Confirmed aspirin 81 mg tablet,delayed 81 mg PO DAILY 04/12/17 08/20/17 release ropinirole 0.5 mg tablet 0.5 mg PO TID 04/12/17 08/26/17 Clopidogrel Bisulfate [Plavix 75mg 75 mg PO DAILY 05/18/17 08/26/17 Tab] Hydrocodone/Acetaminophen 1 each PO Q6HP PRN 05/18/17 08/20/17 [Hydrocodone-Acetamin 10-325 mg] Pantoprazole Sodium [Protonix 40mg 40 mg PO DAILY 05/18/17 08/26/17 tablet] Atorvastatin Calcium [Lipitor 80mg 80 mg PO HS 05/19/17 08/26/17 Tablet] Cetirizine HCl 10 mg PO DAILY 05/19/17 08/26/17 Montelukast Sodium [Montelukast 10 mg PO HS 05/19/17 08/26/17 10mg Tab] raNITIdine HCl [Ranitidine HCl] 150 mg PO BID 05/19/17 08/26/17 furosemide 40 mg tablet 80 mg PO DAILY tab 06/11/17 08/26/17 spironolactone 25 mg tablet 50 mg PO DAILY tab 06/11/17 08/26/17 Fluticasone/Vilanterol [Breo 1 each IH DAILY 06/18/17 08/26/17 Ellipta 100-25 Mcg INH] Lisinopril [Lisinopril 2.5mg Tab] 2.5 mg PO DAILY 06/18/17 08/26/17 Oxybutynin Chloride [Oxybutynin 5 mg PO ONCE 08/20/17 08/26/17 Chloride ER] Aspirin [Aspirin 81mg EC Tab] 81 mg PO DAILY 08/26/17 08/26/17 Metoprolol Tartrate [Lopressor 12.5 mg PO BID 08/26/17 08/26/17 25mg tablet] Ropinirole HCl [Requip 1mg Tablet] 1 mg PO TID 08/26/17 08/26/17 Sacubitril/Valsartan [Entresto 24 1 each PO BID 08/26/17 08/26/17 mg-26 mg Tablet] Previous Rx's Medication Instructions Recorded Digoxin 125 mcg PO DAILY #30 tablet 05/04/17 tamsulosin 0.4 mg capsule 0.4 mg PO DAILY 90 Days #90 cap 06/01/17 Atorvastatin Calcium [Lipitor 40mg 40 mg PO HS tablet 08/21/17 Tablet] Clopidogrel Bisulfate [Plavix 75mg 75 mg PO DAILY tablet 08/21/17 Tab] Clopidogrel Bisulfate [Plavix 75mg 75 mg PO DAILY tablet 08/21/17 Tab] cloNIDine HCl [cloNIDine 0.1mg 0.1 mg PO TIDP PRN tablet 08/21/17 Tablet] Allergies Allergy/AdvReac Type Severity Reaction Status Date / Time morphine [MORPHINE] Allergy Unknown Verified 07/15/17 09:07 [facility] History I have reviewed the patient's past medical history: Yes Medical History: Reports:: Chronic Obstructive Pulmonary Disease (COPD), Coronary Artery Disease, Hyperlipidemia, Internal Pacemaker Denies:: Cancer, Diabetes Mellitus Type 1, Diabetes Mellitus Type 2, MRSA, Seizures Other Medical History: Denies: Blood Transfusion Reaction Other Surgeries: Yes: Appendectomy, CABG, Cardiac Catheterization, Coronary Stent, Open Heart Surgery, Pacemaker, Other Amputation: No Fractures: No - Social History Smoking Status: Current every day smoker Tobacco Type: cigarettes # Packs/Day (cigarettes): 1 #Yrs smoked (if former smoker): 30 Alcohol Intake: never Alcohol Intake Frequency:: other Substance Use Type: denies use Occupational Status: retired Housing: house Household Members: spouse - Psychiatric History Expresses thoughts of harming self/others: None Suicide Plan Description: No Plan Family Hx:: Non-contributory ROS Obtained: Yes All systems reviewed & no additional complaints - Constitutional Constitutional: Denies fever(s) - Eyes Eyes: Denies change in vision - ENT Ears, Nose, Mouth, and Throat: Denies sore throat - Cardiovascular Cardiovascular: Reports dyspnea - Respiratory Respiratory: No cough, Yes dyspnea, No coughing up blood - Gastrointestinal Gastrointestingal: Reports: system reviewed and no additional complaints, except as docu. Denies: abdominal pain - Genitourinary Male Genitourinary: Denies hematuria - Musculoskeletal Musculoskeletal: Denies joint pain, Denies joint swelling - Integumentary/Breasts Skin/Breast: Denies rash - Neurologic Neurologic: Denies seizure-like activity Physical Exam - General General appearance: in no apparent distress - Head Head exam: normocephalic - Eye Eye exam: Present: PERRL, EOMI - ENT ENT exam: Present: mucous membranes moist - Neck Neck exam: Present: trachea midline - Respiratory Respiratory exam: Present: wheezes. Absent: respiratory distress - Cardiovascular Cardiovascular exam: Present: regular rate, systolic murmur, +S4 - Abdominal Exam Abdominal exam: Present: soft - Neurological Exam Neurological exam: Present: alert, oriented X3, CN II-XII intact - Skin Skin exam: Absent: rash
[2017-08-26 06:22] LABS: Albumin Level 2.6 gm/dL (3.4-5.0); Anion Gap 5.7 mEq/L (5-15); Bilirubin,Direct 0.1 mg/dL (0.0-0.2); Bilirubin,Indirect 0.2 mg/dL (0.0-0.9); Bilirubin,Total 0.3 mg/dL (0.2-1.0); Potassium 3.7 mmoL/L (3.5-5.1); Total Protein,Serum 6.8 gm/dL (6.4-8.2)
--- NOTE | 2017-08-26 07:26 | History & Physical Report ---
*Admission Date: 08/26/17 *Chief complaint: sob *History of present illness: 77-year-old white male with known coronary artery disease and recent drug- eluting stent placement to the saphenous vein graft to the right coronary artery last week presented to the hospital this a.m. for continued chest discomfort. Patient relates onset of symptoms last evening about 8:00 including chest pressure, tightness and shortness of breath. He states he did notice some significant improvement after taking a nebulizer treatment at home but symptoms persisted. Due to recent cardiac history, he came in for further evaluation. ER evaluation showed elevated troponin at 3.17 and patient was admitted for non-STEMI. EKG showed no acute ST segment changes. Currently patient is in a chair eating breakfast in no acute distress. Cardiology consulted for evaluation recommendation. [facility] History I have reviewed the patient's past medical history: Yes Medical History: Reports:: Chronic Obstructive Pulmonary Disease (COPD), Coronary Artery Disease, Hyperlipidemia, Internal Pacemaker Denies:: Cancer, Diabetes Mellitus Type 1, Diabetes Mellitus Type 2, MRSA, Seizures Other Medical History: Denies: Blood Transfusion Reaction Other Surgeries: Yes: Appendectomy, CABG, Cardiac Catheterization, Coronary Stent, Open Heart Surgery, Pacemaker, Other Amputation: No Fractures: No - *Social History Smoking Status: Current every day smoker Tobacco Type: cigarettes # Packs/Day (cigarettes): 1 #Yrs smoked (if former smoker): 30 Alcohol Intake: never Alcohol Intake Frequency:: other Substance Use Type: denies use Occupational Status: retired Housing: house Household Members: spouse - Psychiatric History Expresses thoughts of harming self/others: None Suicide Plan Description: No Plan *Family Hx:: Non-contributory Review of Systems - Review of Systems Review of systems:: pertinent systems reviewed and negative unless documented below - Constitutional Denies headache(s) - Eyes Denies change in vision - ENT Denies change in voice, Denies difficulty swallowing - *Cardiovascular Reports shortness of breath, Reports shortness of breath with activity - *Respiratory Reports cough, Reports shortness of breath, Reports shortness of breath with activity - *Gastrointestinal Denies nausea, Denies vomiting - *Genitourinary Denies urinary incontinence - *Musculoskeletal Denies decreased muscle mass - Integumentary/Breasts Denies rash - *Neurologic Denies abnormal movements, Denies seizure-like activity - Psychiatric Denies anxiety - Endocrine Denies flushing - Hematologic/Lymphatic Denies enlarged lymph nodes - Allergic/Immunologic Denies lip swelling Meds Home Medications Medication Instructions Recorded Confirmed Type ropinirole 0.5 mg tablet 0.5 mg PO TID 04/12/17 08/26/17 History Clopidogrel Bisulfate [Plavix 75mg 75 mg PO DAILY 05/18/17 08/26/17 History Tab] Pantoprazole Sodium [Protonix 40mg 40 mg PO DAILY 05/18/17 08/26/17 History tablet] Atorvastatin Calcium [Lipitor 80mg 80 mg PO HS 05/19/17 08/26/17 History Tablet] Cetirizine HCl 10 mg PO DAILY 05/19/17 08/26/17 History Montelukast Sodium [Montelukast 10 mg PO HS 05/19/17 08/26/17 History 10mg Tab] raNITIdine HCl [Ranitidine HCl] 150 mg PO BID 05/19/17 08/26/17 History furosemide 40 mg tablet 40 mg PO DAILY tab 06/11/17 08/26/17 History spironolactone 25 mg tablet 50 mg PO DAILY tab 06/11/17 08/26/17 History Fluticasone/Vilanterol [Breo 1 puff IH DAILY 06/18/17 08/26/17 History Ellipta 100-25 Mcg INH] Lisinopril [Lisinopril 2.5mg Tab] 2.5 mg PO DAILY 06/18/17 08/26/17 History Oxybutynin Chloride [Oxybutynin 5 mg PO DAILY 08/20/17 08/26/17 History Chloride ER] Aspirin [Aspirin 81mg EC Tab] 81 mg PO DAILY 08/26/17 08/26/17 History Metoprolol Tartrate [Lopressor 12.5 mg PO BID 08/26/17 08/26/17 History 25mg tablet] Ropinirole HCl [Requip 1mg Tablet] 1 mg PO TID 08/26/17 08/26/17 History Sacubitril/Valsartan [Entresto 24 1 tab PO BID 08/26/17 08/26/17 History mg-26 mg Tablet] Tamsulosin HCl [Flomax 0.4mg 0.4 mg PO DAILY 08/26/17 08/26/17 History capsule] Allergies Allergy/AdvReac Type Severity Reaction Status Date / Time morphine [MORPHINE] Allergy Unknown Verified 07/15/17 09:07 Exam Vital signs and Labs for Last 24 Hours: Temp Pulse Resp BP Pulse Ox 98.7 F 84 16 143/90 95 08/26/17 07:15 08/26/17 07:15 08/26/17 07:15 08/26/17 07:15 08/26/17 06:55 Laboratory Results - last 24 hr 08/26/17 05:20: WBC 8.2, RBC 4.37 L, Hgb 12.2 L, Hct 37.2 L, MCV 85.2, MCH 28.0 , MCHC 32.9, RDW 14.5, Plt Count 334, MPV 7.7, Neut % (Auto) 76.3, Lymph % (Auto ) 11.8, [place] % (Auto) 5.4, Eos % (Auto) 5.5, Baso % (Auto) 1.0, Neut # (Auto) 6.3, Lymph # (Auto) 1.0, [place] # (Auto) 0.5, Eos # (Auto) 0.5 H, Baso # (Auto) 0.1 08/26/17 05:20: Troponin I 3.17 H 08/26/17 05:20: Sodium 143, Potassium 3.7, Chloride 105, Carbon Dioxide 36 H, Anion Gap 5.7, BUN 24 H, Creatinine 0.80, Estimated Creat Clear 54, Estimated GFR 94, Est GFR ( Amer) 114, Glucose 108 H, Total Bilirubin 0.3, Direct Bilirubin 0.1, Indirect Bilirubin 0.2, AST 27, ALT 20, Alkaline Phosphatase 91, Total Protein 6.8, Albumin 2.6 L 08/26/17 05:20: Lactic Acid 0.6 08/26/17 05:20: B-Natriuretic Peptide 1590 H I & O for Last 24 hours: Intake & Output 08/23/17 08/24/17 08/25/17 08/26/17 11:59 11:59 11:59 11:59 Weight 134 lb - Constitutional no acute distress - *Routine HEENT Exam Head: Present: normocephalic Eye: Present: PERRL ENT: Present: mucous membranes moist - *Routine Neck Exam Present: supple, full ROM - *Routine Respiratory Exam Present: rhonchi, wheezes - *Routine Cardiovascular Exam Present: RRR Comments: murmur, pacemaker to left chest - *Routine Abdominal Exam Present: soft, normoactive bowel sounds - *Routine Extremities Exam Present: full ROM - *Routine Skin Exam Present: intact - *Routine Neurological Exam Present: alert, oriented X3 [place] - Routine Psychiatric Exam Present: normal affect, normal thought process H&P: Result - Labs Labs: Short CBC 08/26/17 Range/Units 05:20 WBC 8.2 (4.8-10.8) K/mm3 Hgb 12.2 L (14.1-18.0) g/dL Hct 37.2 L (42.0-52.0) % Plt Count 334 (142-424) K/mm3 BMP 08/26/17 05:20 Sodium 143 Potassium 3.7 Chloride 105 Carbon Dioxide 36 H BUN 24 H Creatinine 0.80 Glucose 108 H Cardiac Enzymes 08/26/17 Range/Units 05:20 Troponin I 3.17 H (0.00-0.06) ng/ml Liver Function 08/26/17 Range/Units 05:20 Total Bilirubin 0.3 (0.2-1.0) mg/dL Direct Bilirubin 0.1 (0.0-0.2) mg/dL AST 27 (15-37) U/L ALT 20 (12-78) U/L Alkaline Phosphatase 91 (46-116) U/L Albumin 2.6 L (3.4-5.0) gm/dL Assessment and Plan - Assessment and plan all Dx Assessment and Plan for all problems:: cardiology consult, Rounded with Dr. Atkinson all orders per Dr. Atkinson
--- NOTE | 2017-08-26 07:33 | Pharmacy Consult Notes ---
[facility] Pharmacy VTE Monitoring - Patient Demographics Admission date: 08/26/17 Report Date: 08/26/17 Time: 07:32 Allergies/Adverse Reactions: Patient Allergies morphine [MORPHINE] Allergy (Unknown, Verified 07/15/17 09:07) Height: 1.75 m Weight: 60.781 kg Patient Problems: Current Active Problems Congestive heart failure (Acute) Acute exacerbation of chronic obstructive airways disease (Acute) Non-STEMI (non-ST elevated myocardial infarction) (Acute) Automatic implantable cardiac defibrillator in situ (Chronic) - VTE Risk Labs: VTE Related Lab Results Hgb 12.2 g/dL (14.1-18.0) L 08/26/17 05:20 Hct 37.2 % (42.0-52.0) L 08/26/17 05:20 Plt Count 334 K/mm3 (142-424) 08/26/17 05:20 BUN 24 mg/dL (7-18) H 08/26/17 05:20 Creatinine 0.80 mg/dL (0.70-1.30) 08/26/17 05:20 Estimated Creat Clear 54 mL/min (0-300) 08/26/17 05:20 - Prophylaxis VTE Prophylaxis Ordered?: Yes Types of VTE Prophylaxis: TEDS Knee High - VTE Diagnosis Confirmed Treatment or plan recommended: Continue Current Treatment
--- NOTE | 2017-08-26 08:54 | Consult Report ---
History of Present Illness Consult date: 08/26/17 Requesting physician: Brian Atkinson Consult reason: chest pain Chief complaint: chest pain Additional Medical History:: 1. Coronary artery disease A. History of coronary bypass grafting, 2006 B. History of non-STEMI with drug-eluting stent placed to saphenous vein graft to the RCA, 03/2016. C. Non-STEMI with additional drug-eluting stent placed to saphenous vein graft to RCA, 04/2017 D. ZAIRA to SVG to RCA, 08/20/2017 E. NSTEMI, 08/25/2017 2. Cardiomyopathy, EF 20 percent at time of non-STEMI, 03/2015 A. AICD implantation, 04/2017, [place] 3. Tobacco use A. Chronic obstructive pulmonary disease with home O2 use 4. Hypertension 5. Hyperlipidemia 6. New onset A. fib with RVR, 08/20/2017 A. CHADS-VASC score of 4, however he is a poor candidate for anticoagulation. B. Cardioverted to NSR, 08/20/17 7. DM type 2 History of present illness: 77-year-old white male with known coronary artery disease and recent drug- eluting stent placement to the saphenous vein graft to the right coronary artery last week presented to the hospital this a.m. for continued chest discomfort. Patient relates onset of symptoms last evening about 8:00 including chest pressure, tightness and shortness of breath. He states he did notice some significant improvement after taking a nebulizer treatment at home but symptoms persisted. Due to recent cardiac history, he came in for further evaluation. ER evaluation showed elevated troponin at 3.17 and patient was admitted for non-STEMI. EKG showed no acute ST segment changes. Currently patient is in a chair eating breakfast in no acute distress. Cardiology consulted for evaluation recommendation. [facility] History Medical History: Reports:: Chronic Obstructive Pulmonary Disease (COPD), Coronary Artery Disease, Hyperlipidemia, Internal Pacemaker, Myocardial Infarction Denies:: Cancer, Diabetes Mellitus Type 1, Diabetes Mellitus Type 2, MRSA, Seizures Other Medical History: Denies: Blood Transfusion Reaction Other Surgeries: Yes: Appendectomy, CABG, Cardiac Catheterization, Coronary Stent, Open Heart Surgery, Pacemaker, Other Amputation: No Fractures: No - *Social History Smoking Status: Current every day smoker Tobacco Type: cigarettes # Packs/Day (cigarettes): 1 #Yrs smoked (if former smoker): 30 Alcohol Intake: never Alcohol Intake Frequency:: other Substance Use Type: denies use Occupational Status: retired Housing: house Household Members: spouse - Psychiatric History Expresses thoughts of harming self/others: None Suicide Plan Description: No Plan *Family Hx:: Non-contributory Meds Home Medications Medication Instructions Recorded Confirmed Type ropinirole 0.5 mg tablet 0.5 mg PO TID 04/12/17 08/26/17 History Clopidogrel Bisulfate [Plavix 75mg 75 mg PO DAILY 05/18/17 08/26/17 History Tab] Pantoprazole Sodium [Protonix 40mg 40 mg PO DAILY 05/18/17 08/26/17 History tablet] Atorvastatin Calcium [Lipitor 80mg 80 mg PO HS 05/19/17 08/26/17 History Tablet] Cetirizine HCl 10 mg PO DAILY 05/19/17 08/26/17 History Montelukast Sodium [Montelukast 10 mg PO HS 05/19/17 08/26/17 History 10mg Tab] raNITIdine HCl [Ranitidine HCl] 150 mg PO BID 05/19/17 08/26/17 History furosemide 40 mg tablet 80 mg PO DAILY tab 06/11/17 08/26/17 History spironolactone 25 mg tablet 50 mg PO DAILY tab 06/11/17 08/26/17 History Fluticasone/Vilanterol [Breo 1 each IH DAILY 06/18/17 08/26/17 History Ellipta 100-25 Mcg INH] Lisinopril [Lisinopril 2.5mg Tab] 2.5 mg PO DAILY 06/18/17 08/26/17 History Oxybutynin Chloride [Oxybutynin 5 mg PO ONCE 08/20/17 08/26/17 History Chloride ER] Aspirin [Aspirin 81mg EC Tab] 81 mg PO DAILY 08/26/17 08/26/17 History Metoprolol Tartrate [Lopressor 12.5 mg PO BID 08/26/17 08/26/17 History 25mg tablet] Ropinirole HCl [Requip 1mg Tablet] 1 mg PO TID 08/26/17 08/26/17 History Sacubitril/Valsartan [Entresto 24 1 each PO BID 08/26/17 08/26/17 History mg-26 mg Tablet] Allergies Allergy/AdvReac Type Severity Reaction Status Date / Time morphine [MORPHINE] Allergy Unknown Verified 07/15/17 09:07 Review of Systems - *Cardiovascular Reports chest pain - *Respiratory Reports shortness of breath, Reports shortness of breath with activity - *Gastrointestinal Denies abdominal pain - *Musculoskeletal Reports back pain - *Neurologic Denies abnormal movements, Denies headache(s), Denies seizure-like activity Exam Vital signs and Labs for Last 24 Hours: Temp Pulse Resp BP Pulse Ox 97.6 F 88 16 120/56 94 L 08/26/17 08:00 08/26/17 08:00 08/26/17 08:00 08/26/17 08:00 08/26/17 08:00 Laboratory Results - last 24 hr 08/26/17 05:20: WBC 8.2, RBC 4.37 L, Hgb 12.2 L, Hct 37.2 L, MCV 85.2, MCH 28.0 , MCHC 32.9, RDW 14.5, Plt Count 334, MPV 7.7, Neut % (Auto) 76.3, Lymph % (Auto ) 11.8, [place] % (Auto) 5.4, Eos % (Auto) 5.5, Baso % (Auto) 1.0, Neut # (Auto) 6.3, Lymph # (Auto) 1.0, [place] # (Auto) 0.5, Eos # (Auto) 0.5 H, Baso # (Auto) 0.1 08/26/17 05:20: Troponin I 3.17 H 08/26/17 05:20: Sodium 143, Potassium 3.7, Chloride 105, Carbon Dioxide 36 H, Anion Gap 5.7, BUN 24 H, Creatinine 0.80, Estimated Creat Clear 54, Estimated GFR 94, Est GFR ( Amer) 114, Glucose 108 H, Total Bilirubin 0.3, Direct Bilirubin 0.1, Indirect Bilirubin 0.2, AST 27, ALT 20, Alkaline Phosphatase 91, Total Protein 6.8, Albumin 2.6 L 08/26/17 05:20: Lactic Acid 0.6 08/26/17 05:20: B-Natriuretic Peptide 1590 H I & O for Last 24 hours: Intake & Output 08/23/17 08/24/17 08/25/17 08/26/17 11:59 11:59 11:59 11:59 Weight 134 lb - *Routine Neck Exam Absent: JVD, carotid bruit - *Routine Respiratory Exam Present: decreased breath sounds, wheezes, diminished air movement - *Routine Cardiovascular Exam Present: RRR, murmur. Absent: gallop, rubs - *Routine Extremities Exam Absent: edema - *Routine Neurological Exam Present: alert, oriented X3, moving all extremities Assessment and Plan (1) Non-STEMI (non-ST elevated myocardial infarction) Current visit: Yes Status: Acute Category: Medical Code(s): I21.4 - Non- ST elevation (NSTEMI) myocardial infarction (2) Congestive heart failure Current visit: Yes Status: Acute Qualifiers: Heart failure type: unspecified Heart failure chronicity: acute on chronic Qualified Code(s): I50.9 - Heart failure, unspecified Category: Medical Code(s): I50.9 - Heart failure, unspecified (3) Coronary arteriosclerosis Current visit: No Status: Chronic Category: Medical Code(s): I25.10 - Atherosclerotic heart disease of [place] coronary artery without angina pectoris (4) Stented coronary artery Current visit: No Status: Chronic Category: Surgical Code(s): Z95.5 - Presence of coronary angioplasty implant and graft - Assessment and plan all Dx Assessment and Plan for all problems:: 1. Plan to proceed with left heart catheterization to evaluate recent drug- eluting stent placement setting of non-STEMI. 2. Will interrogate ICD for recurrent episodes of atrial fibrillation and possible need for adjustment in medical therapy. 3. Further recommendations to follow.
[2017-08-27 07:01] LABS: Basophils # 0.1 K/mm3 (0-0.2); Basophils % 0.4 % (0.1-2.0); Eosinophils # 0.1 K/mm3 (0.0-0.4); Eosinophils % 0.6 % (0.1-12.0); Hematocrit 37.9 % (42.0-52.0); Hemoglobin 11.3 g/dL (14.1-18.0); Lymphocytes # 0.9 K/mm3 (0.7-4.5); Lymphocytes % 7.9 K/mm3 (10-50); Mean Corpuscular HGB Conc 29.7 g/dL (31.8-35.4); Mean Corpuscular Hemoglobin 26.2 pg (27.0-31.2); Mean Corpuscular Volume 88.2 fl (80-94); Mean Platelet Volume 7.4 fl (7.4-10.4); Monocytes # 0.5 K/mm3 (0.1-1.0); Monocytes % 4.6 % (1.7-9.3); Neutrophils # 9.7 K/mm3 (1.8-7.8); Neutrophils % 86.5 % (37.0-80.0); Platelet Count 342 K/mm3 (142-424); Red Cell Distribution Width 14.5 % (11.5-17.5); White Blood Count 11.3 K/mm3 (4.8-10.8)
--- NOTE | 2017-08-27 08:22 | Discharge Summary ---
General - General Admission date:: 08/26/17 Discharge date: 08/27/17 HPI HPI: 77-year-old white male with known coronary artery disease and recent drug- eluting stent placement to the saphenous vein graft to the right coronary artery last week presented to the hospital this a.m. for continued chest discomfort. Patient relates onset of symptoms last evening about 8:00 including chest pressure, tightness and shortness of breath. He states he did notice some significant improvement after taking a nebulizer treatment at home but symptoms persisted. Due to recent cardiac history, he came in for further evaluation. ER evaluation showed elevated troponin at 3.17 and patient was admitted for non-STEMI. EKG showed no acute ST segment changes. Currently patient is in a chair eating breakfast in no acute distress. Cardiology consulted for evaluation recommendation. Hospital Course Hospital Course: cath report: ANGIOGRAPHIC RESULTS: 1. The left main artery has a long eccentric 10-20% distal stenosis 2. The left anterior descending artery has a proximal 40-50% stenosis followed by additional 40% stenoses. The LAD is then occluded after 3 diagonal arteries and the first septal shank taper 3. The circumflex artery is a nondominant yet still large vessel which has proximal 40% mid vessel 40% stenoses distal 40% stenoses 4. The right coronary artery known to be proximally occluded 5. The MCGEE ventriculogram reveals severe left ventricular dilatation with anterior wall akinesis with aneurysmal dilatation. Estimated ejection fraction 20% 6. The left ventricular end-diastolic pressure 20 mmHg 7. The saphenous vein graft to the circumflex artery is known to be ostially occluded 8. The saphenous vein graft to the distal dominant right coronary is widely patent with excellent flow down the graft and into the kake vessel IMPRESSION: 1. Coronary artery disease as described above 2. Severe left ventricular dilatation with reduced ejection fraction 3. Normal mildly elevated LVEDP PLAN: 1. Medical management To discharge home today follow-up with Patito Bailey and Dr. Xie on Wednesday Objective Vital signs: Temp Pulse Resp BP Pulse Ox 98.5 F 72 22 113/54 94 L 08/27/17 07:28 08/27/17 07:28 08/27/17 07:28 08/27/17 07:28 08/27/17 07:28 no acute distress - *Routine HEENT Exam Head: Present: normocephalic Eye: Present: PERRL ENT: Present: mucous membranes moist - *Routine Neck Exam Present: full ROM - *Routine Respiratory Exam Present: CTA bilaterally - *Routine Cardiovascular Exam Present: murmur Comments: pacemaker lt chest - *Routine Abdominal Exam Present: soft, normoactive bowel sounds - *Routine Extremities Exam Present: full ROM - *Routine Skin Exam Present: intact - *Routine Neurological Exam Present: alert, oriented X3, CN II-XII intact - Routine Psychiatric Exam Present: normal affect, normal thought process Results Labs on day of discharge: Labs from last 24 hours 08/27/17 06:22 WBC 11.3 H D RBC 4.30 L Hgb 11.3 L Hct 37.9 L MCV 88.2 MCH 26.2 L MCHC 29.7 L RDW 14.5 Plt Count 342 MPV 7.4 Neut % (Auto) 86.5 H Lymph % (Auto) 7.9 L [place] % (Auto) 4.6 Eos % (Auto) 0.6 Baso % (Auto) 0.4 Neut # (Auto) 9.7 H Lymph # (Auto) 0.9 [place] # (Auto) 0.5 Eos # (Auto) 0.1 Baso # (Auto) 0.1 - Additional Comments Dr. Atkinson rounded earlier all orders per Dr. Atkinson Discharge Plan - Patient Discharge Instructions ACTIVITY: Continue current activity DIET: continue same diet - Follow up Plan Follow up with: Patito Bailey PA [Primary Care Provider] - 08/31/17 Erik Xie MD [Staff Physician] - 08/31/17 Disposition: Home, [facility] Medications: Home Medications Medication Instructions Recorded Confirmed Type ropinirole 0.5 mg tablet 0.5 mg PO TID 04/12/17 08/26/17 History Clopidogrel Bisulfate [Plavix 75mg 75 mg PO DAILY 05/18/17 08/26/17 History Tab] Pantoprazole Sodium [Protonix 40mg 40 mg PO DAILY 05/18/17 08/26/17 History tablet] Atorvastatin Calcium [Lipitor 80mg 80 mg PO HS 05/19/17 08/26/17 History Tablet] Cetirizine HCl 10 mg PO DAILY 05/19/17 08/26/17 History Montelukast Sodium [Montelukast 10 mg PO HS 05/19/17 08/26/17 History 10mg Tab] raNITIdine HCl [Ranitidine HCl] 150 mg PO BID 05/19/17 08/26/17 History furosemide 40 mg tablet 40 mg PO DAILY tab 06/11/17 08/26/17 History spironolactone 25 mg tablet 50 mg PO DAILY tab 06/11/17 08/26/17 History Fluticasone/Vilanterol [Breo 1 puff IH DAILY 06/18/17 08/26/17 History Ellipta 100-25 Mcg INH] Lisinopril [Lisinopril 2.5mg Tab] 2.5 mg PO DAILY 06/18/17 08/26/17 History Oxybutynin Chloride [Oxybutynin 5 mg PO DAILY 08/20/17 08/26/17 History Chloride ER] Aspirin [Aspirin 81mg EC Tab] 81 mg PO DAILY 08/26/17 08/26/17 History Metoprolol Tartrate [Lopressor 12.5 mg PO BID 08/26/17 08/26/17 History 25mg tablet] Ropinirole HCl [Requip 1mg Tablet] 1 mg PO TID 08/26/17 08/26/17 History Sacubitril/Valsartan [Entresto 24 1 tab PO BID 08/26/17 08/26/17 History mg-26 mg Tablet] Tamsulosin HCl [Flomax 0.4mg 0.4 mg PO DAILY 08/26/17 08/26/17 History capsule] Prescriptions/Medication Reconciliation: Continue furosemide 40 mg tablet 40 mg PO DAILY tab spironolactone 25 mg tablet 50 mg PO DAILY tab ropinirole 0.5 mg tablet 0.5 mg PO TID Digoxin 125 mcg PO DAILY #30 tablet Pantoprazole Sodium [Protonix 40mg tablet] 40 mg PO DAILY Clopidogrel Bisulfate [Plavix 75mg Tab] 75 mg PO DAILY Atorvastatin Calcium [Lipitor 80mg Tablet] 80 mg PO HS raNITIdine HCl [Ranitidine HCl] 150 mg PO BID Lisinopril [Lisinopril 2.5mg Tab] 2.5 mg PO DAILY Fluticasone/Vilanterol [Breo Ellipta 100-25 Mcg INH] 1 puff IH DAILY Oxybutynin Chloride [Oxybutynin Chloride ER] 5 mg PO DAILY cloNIDine HCl [cloNIDine 0.1mg Tablet] 0.1 mg PO TIDP PRN tablet PRN Reason: Blood Pressure - High Ropinirole HCl [Requip 1mg Tablet] 1 mg PO TID Metoprolol Tartrate [Lopressor 25mg tablet] 12.5 mg PO BID Aspirin [Aspirin 81mg EC Tab] 81 mg PO DAILY Cetirizine HCl 10 mg PO DAILY Montelukast Sodium [Montelukast 10mg Tab] 10 mg PO HS Sacubitril/Valsartan [Entresto 24 mg-26 mg Tablet] 1 tab PO BID Tamsulosin HCl [Flomax 0.4mg capsule] 0.4 mg PO DAILY
[2017-08-27 09:16] LABS: Anion Gap 8.2 mEq/L (5-15); Potassium 4.2 mmoL/L (3.5-5.1)
[2017-08-27 10:10] LABS: Lymphocytes % 7 % (10-50); Monocytes % 4 % (2-9); Neutrophils % 88 % (42-76); Total Cells Counted 100
[2017-08-27 10:13] LABS: RBC Morphology Normal
== END 2017-08-27 09:00 | disposition home or self-care (01) ==
LOC: 2ND 04:57 → ER 04:57 → 2ND 08:30
PROVIDERS: ADMIT Emergency Medicine; ATTEND Emergency Medicine

== ENCOUNTER 2017-09-06 14:10 | Observation (INO) ==
[2017-09-06 15:17] LABS: Hematocrit 34.7 % (42.0-52.0); Hemoglobin 11.2 g/dL (14.1-18.0); Mean Corpuscular HGB Conc 32.3 g/dL (31.8-35.4); Mean Corpuscular Hemoglobin 27.6 pg (27.0-31.2); Mean Corpuscular Volume 85.4 fl (80-94); Mean Platelet Volume 7.5 fl (7.4-10.4); Neutrophils % 74.6 % (37.0-80.0); Platelet Count 272 K/mm3 (142-424); Red Blood Count 4.06 M/mm3 (4.60-6.20); Red Cell Distribution Width 14.7 % (11.5-17.5); White Blood Count 5.9 K/mm3 (4.8-10.8)
[2017-09-06 15:18] LABS: Basophils % 1.3 % (0.1-2.0); Eosinophils # 0.4 K/mm3 (0.0-0.4); Lymphocytes # 0.6 K/mm3 (0.7-4.5); Lymphocytes % 9.3 K/mm3 (10-50); Monocytes # 0.5 K/mm3 (0.1-1.0); Monocytes % 7.7 % (1.7-9.3); Neutrophils # 4.4 K/mm3 (1.8-7.8)
[2017-09-06 15:19] LABS: Basophils # 0.1 K/mm3 (0-0.2)
[2017-09-06 15:26] LABS: Albumin Level 2.3 gm/dL (3.4-5.0); Albumin/Globulin Ratio 0.6 (1.1-1.8); Anion Gap 6.6 mEq/L (5-15); Bilirubin,Total 0.3 mg/dL (0.2-1.0); Calcium 8.8 mg/dL (8.5-10.1); Globulin 3.8 gm/dl (1.3-3.2); Potassium 3.6 mmoL/L (3.5-5.1); Total Protein,Serum 6.1 gm/dL (6.4-8.2)
--- NOTE | 2017-09-06 18:09 | Emergency Department Note ---
ED Disposition Clinical Impression: COPD exacerbation, Acute exacerbation of chronic bronchitis Disposition: Admitted As Inpatient Condition on Discharge: Good Time of Disposition: 18:35 - Critical Care Critical Care Time: No Attestation: On 09/06/17, the high probability of a clinically significant, sudden or life threatening deterioration of the following system(s) required my full and direct attention, intervention and personal management. The time I documented below is in addition to time spent performing reported procedures but includes the following listed in this critical care notation. Medical Decision Making - Medical Records Medical records reviewed: Yes: I reviewed the patient's medical records. - Juan Inquiry Pt receiving controlled substance: No Vital Signs: 09/06/17 14:10 09/06/17 14:15 09/06/17 14:30 Temperature 97.9 F Temperature Source Oral Pulse Rate 74 Pulse Rate [Right Brachial] 82 69 Respiratory Rate 24 20 Blood Pressure [Right Arm] 95/40 104/47 Blood Pressure Mean [Right Arm] 58 66 Blood Pressure Source [Right Arm] Automatic Cuff Automatic Cuff Blood Pressure Position [Right Arm] Sitting Sitting 02 Sat by Pulse Oximetry 96 96 Oxygen Delivery Method Nasal Cannula Nasal Cannula Oxygen Flow Rate (LPM) 2.5 2.5 09/06/17 14:54 09/06/17 15:34 09/06/17 16:14 Temperature Temperature Source Pulse Rate Pulse Rate [Right Brachial] 67 68 72 Respiratory Rate 22 20 20 Blood Pressure [Right Arm] 92/44 97/49 102/42 Blood Pressure Mean [Right Arm] 60 65 62 Blood Pressure Source [Right Arm] Automatic Cuff Automatic Cuff Automatic Cuff Blood Pressure Position [Right Arm] Sitting Sitting Sitting 02 Sat by Pulse Oximetry 98 96 97 Oxygen Delivery Method Nasal Cannula Nasal Cannula Nasal Cannula Oxygen Flow Rate (LPM) 2.5 2.5 2.5 09/06/17 18:18 Temperature Temperature Source Pulse Rate 74 Pulse Rate [Right Brachial] Respiratory Rate Blood Pressure [Right Arm] Blood Pressure Mean [Right Arm] Blood Pressure Source [Right Arm] Blood Pressure Position [Right Arm] 02 Sat by Pulse Oximetry Oxygen Delivery Method Oxygen Flow Rate (LPM) - Lab Data Lab results reviewed: Yes: I reviewed the patient's lab results. Lab Results 09/06/17 14:45: WBC 5.9, RBC 4.06 L, Hgb 11.2 L, Hct 34.7 L, MCV 85.4, MCH 27.6 , MCHC 32.3, RDW 14.7, Plt Count 272, MPV 7.5, Neut % (Auto) 74.6, Lymph % (Auto ) 9.3 L, [place] % (Auto) 7.7, Eos % (Auto) 7.0, Baso % (Auto) 1.3, Neut # (Auto) 4.4, Lymph # (Auto) 0.6 L, [place] # (Auto) 0.5, Eos # (Auto) 0.4, Baso # (Auto) 0.1 09/06/17 14:45: Sodium 139, Potassium 3.6, Chloride 104, Carbon Dioxide 32, Anion Gap 6.6, BUN 28 H, Creatinine 0.76, Estimated Creat Clear 56, Estimated GFR 100, Est GFR ( Amer) 121, Glucose 98, Calcium 8.8, Total Bilirubin 0.3, AST 10 L, ALT 12, Alkaline Phosphatase 78, Total Protein 6.1 L, Albumin 2.3 L, Globulin 3.8 H, Albumin/Globulin Ratio 0.6 L 09/06/17 14:45: Lactic Acid 1.8 09/06/17 14:52: Total Creatine Kinase 67, CK-MB (CK-2) 1.4 D, CK-MB (CK-2) Rel Index 2.1, Troponin I 0.05 09/06/17 17:00: Total Creatine Kinase 41, CK-MB (CK-2) 1.3, CK-MB (CK-2) Rel Index 3.2, Troponin I 0.05 Result diagrams: 09/06/17 14:45 09/06/17 14:45 Orders (Tests/Meds): ED MEDICATIONS Generic Name Dose Route Start Last Admin Trade Name Freq PRN Reason Stop Dose Admin Ceftriaxone Sodium 1 gm/ 50 mls @ 100 mls/hr 09/06/17 18:15 09/06/17 18:19 Sodium Chloride IV 09/20/17 18:14 100 mls/hr Q24H RICHARD Administration Protocol Discontinued Medications Generic Name Dose Route Start Last Admin Trade Name Freq PRN Reason Stop Dose Admin Albuterol/Ipratropium 3 ml 09/06/17 14:18 09/06/17 14:30 Duoneb 3ml Neb IH 09/06/17 14:19 3 ml ONCE ONE Administration Albuterol/Ipratropium 3 ml 09/06/17 18:08 09/06/17 18:22 Duoneb 3ml Neb IH 09/06/17 18:09 3 ml ONCE ONE Administration Methylprednisolone Sodium Succinate 125 mg 09/06/17 18:07 09/06/17 18:19 Solu-Medrol 125mg/2ml Vial IV 09/06/17 18:08 125 mg ONCE ONE Administration ORDERS Category Date Time Status Digoxin Stat Lab 09/06/17 18:19 Ordered Blood Culture Stat Micro 09/06/17 14:40 Received - Radiology Data #1 Image(s): Chest Image Reviewed: Yes I reviewed the patient's radiology results, Yes I reviewed the patient's radiology image, Yes I discussed the image results w/the radiologist Preliminary Findings: Abnormal Consistent with COPD, no acute infiltrate - ECG Data Tracing #1 I reviewed this ECG and interpreted as documented below: Heart rate 79, no acute ischemic changes, no acute ectopy ECG normal with no acute: arrhythmias, ischemia, conduction abnormalities, chamber hypertrophy Normal Sinus Rhythm: Yes - Physician Consults Physician Consulted: Dr Colmenares covering for Dr. Atkinson Time: 18:20 Reason -: Admission, Pt condition Comment/Response: Advised of patient's presentation findings, agreeable with admission. - Reevaluation(s) Time: 18:10 Reevaluation #1: Upon reevaluation patient remains in distress, without any clinical improvement after treatment provided. Decision made to hospitalist patient. Resp/SOB HPI - General Chief Complaint: Shortness of Breath/Dyspnea Stated Complaint: SOA, Chest pain Time Seen by Provider: 09/06/17 14:30 Mode of Arrival: Wheelchair Source of Information: Patient Limitations: No Limitations Description of Symptoms (Recalled from ER Triage Doc. by RN): Pt reports increased SOA, chest pressure, states symptoms began lastnight. 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 Patient denies any recent travel, denies recent exposure to sick contacts. Occasionally patient had to increase his oxygen at home, in order to alleviate his symptoms. MD Complaint: shortness of breath, cough Onset (ago): day(s) (2) Context: recent illness Severity: moderate Consistency/Duration: intermittent Relieving factors: oxygen Exacerbating factors: lying flat Known history of: COPD Associated symptoms: fever (subjective), cough, wheezing, sputum production Treatment prior to arrival: oxygen, bronchodilator - Related Data Home Medications Medication Instructions Recorded Confirmed ropinirole 0.5 mg tablet 0.5 mg PO TID 04/12/17 08/26/17 Clopidogrel Bisulfate [Plavix 75mg 75 mg PO DAILY 05/18/17 08/26/17 Tab] Pantoprazole Sodium [Protonix 40mg 40 mg PO DAILY 05/18/17 08/26/17 tablet] Atorvastatin Calcium [Lipitor 80mg 80 mg PO HS 05/19/17 08/26/17 Tablet] Cetirizine HCl 10 mg PO DAILY 05/19/17 08/26/17 Montelukast Sodium [Montelukast 10 mg PO HS 05/19/17 08/26/17 10mg Tab] raNITIdine HCl [Ranitidine HCl] 150 mg PO BID 05/19/17 08/26/17 furosemide 40 mg tablet 40 mg PO DAILY tab 06/11/17 08/26/17 spironolactone 25 mg tablet 50 mg PO DAILY tab 06/11/17 08/26/17 Fluticasone/Vilanterol [Breo 1 puff IH DAILY 06/18/17 08/26/17 Ellipta 100-25 Mcg INH] Lisinopril [Lisinopril 2.5mg Tab] 2.5 mg PO DAILY 06/18/17 08/26/17 Oxybutynin Chloride [Oxybutynin 5 mg PO DAILY 08/20/17 08/26/17 Chloride ER] Aspirin [Aspirin 81mg EC Tab] 81 mg PO DAILY 08/26/17 08/26/17 Metoprolol Tartrate [Lopressor 12.5 mg PO BID 08/26/17 08/26/17 25mg tablet] Ropinirole HCl [Requip 1mg Tablet] 1 mg PO TID 08/26/17 08/26/17 Sacubitril/Valsartan [Entresto 24 1 tab PO BID 08/26/17 08/26/17 mg-26 mg Tablet] Tamsulosin HCl [Flomax 0.4mg 0.4 mg PO DAILY 08/26/17 08/26/17 capsule] Previous Rx's Medication Instructions Recorded Digoxin 125 mcg PO DAILY #30 tablet 05/04/17 cloNIDine HCl [cloNIDine 0.1mg 0.1 mg PO TIDP PRN tablet 08/21/17 Tablet] Allergies Allergy/AdvReac Type Severity Reaction Status Date / Time morphine [MORPHINE] Allergy Unknown Verified 09/06/17 14:15 [facility] History I have reviewed the patient's past medical history: Yes Medical History: Reports:: Chronic Obstructive Pulmonary Disease (COPD), Coronary Artery Disease, Hyperlipidemia, Internal Pacemaker, Myocardial Infarction Denies:: Cancer, Diabetes Mellitus Type 1, Diabetes Mellitus Type 2, MRSA, Seizures Other Medical History: Denies: Blood Transfusion Reaction Other Surgeries: Yes: Appendectomy, CABG, Cardiac Catheterization, Coronary Stent, Open Heart Surgery, Pacemaker, Other Amputation: No Fractures: No - Social History Smoking Status: Current some day smoker Tobacco Type: cigarettes # Packs/Day (cigarettes): 1 #Yrs smoked (if former smoker): 30 Alcohol Intake: never Alcohol Intake Frequency:: other Substance Use Type: denies use Occupational Status: retired Housing: house Household Members: spouse - Psychiatric History Expresses thoughts of harming self/others: None Suicide Plan Description: No Plan Family Hx:: Non-contributory ROS Obtained: Yes All systems reviewed & no additional complaints, Yes Systems reviewed as appropriate & no additional complaints - Respiratory Respiratory: Yes system reviewed and no additional complaints, except as docu, Yes as per HPI, Yes chest congestion, Yes cough Physical Exam - General General appearance: alert, in distress (moderate) - Head Head exam: atraumatic, normocephalic, normal inspection - Neck Neck exam: Present: normal inspection, full ROM, trachea midline. Absent: meningismus, lymphadenopathy - Chest Chest inspection: Present: normal inspection, tenderness - Respiratory Respiratory exam: Present: respiratory distress, wheezes - Cardiovascular Cardiovascular exam: Present: regular rate, normal rhythm. Absent: JVD - Abdominal Exam Abdominal exam: Present: soft, normal bowel sounds. Absent: distention, tenderness, guarding - Extremities Exam Extremities exam: Present: normal inspection, full ROM, normal capillary refill. Absent: calf tenderness - Back Exam Back exam: Present: normal inspection. Absent: tenderness - Neurological Exam Neurological exam: Present: alert, oriented X3 - Psychiatric Psychiatric exam: Present: anxious, flat affect - Skin Skin exam: Present: warm, dry, intact, normal color
--- NOTE | 2017-09-07 07:26 | Pharmacy Consult Notes ---
[facility] Pharmacy VTE Monitoring - Patient Demographics Admission date: 09/07/17 Report Date: 09/07/17 Time: 07:26 Allergies/Adverse Reactions: Patient Allergies morphine [MORPHINE] Allergy (Unknown, Verified 09/06/17 20:33) Height: 1.75 m Weight: 61.235 kg Patient Problems: Current Active Problems COPD exacerbation (Acute) Acute exacerbation of chronic bronchitis (Acute) - VTE Risk Labs: VTE Related Lab Results Hgb 11.2 g/dL (14.1-18.0) L 09/06/17 14:45 Hct 34.7 % (42.0-52.0) L 09/06/17 14:45 Plt Count 272 K/mm3 (142-424) 09/06/17 14:45 BUN 28 mg/dL (7-18) H 09/06/17 14:45 Creatinine 0.76 mg/dL (0.70-1.30) 09/06/17 14:45 Estimated Creat Clear 56 mL/min (0-300) 09/06/17 14:45 Was VTE Risk Assessment Performed: Yes VTE Score: 5 VTE Risk Level: Low Risk Clinical Trial Participant: No - Prophylaxis VTE Prophylaxis Ordered?: Yes Types of VTE Prophylaxis: TEDS Knee High
--- NOTE | 2017-09-07 08:37 | H&P/Discharge Summary ---
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 Patient denies any recent travel, denies recent exposure to sick contacts. Occasionally patient had to increase his oxygen at home, in order to alleviate his symptoms. [facility] History I have reviewed the patient's past medical history: Yes Medical History: Reports:: Chronic Obstructive Pulmonary Disease (COPD), Coronary Artery Disease, Hyperlipidemia, Internal Pacemaker, Myocardial Infarction Denies:: Cancer, Diabetes Mellitus Type 1, Diabetes Mellitus Type 2, MRSA, Seizures Other Medical History: Denies: Blood Transfusion Reaction Other Surgeries: Yes: Appendectomy, CABG, Cardiac Catheterization, Coronary Stent, Open Heart Surgery, Pacemaker, Other Amputation: No Fractures: No - *Social History Smoking Status: Current every day smoker Tobacco Type: cigarettes # Packs/Day (cigarettes): 1 #Yrs smoked (if former smoker): 30 Alcohol Intake: never Alcohol Intake Frequency:: other Substance Use Type: denies use Occupational Status: retired Housing: house Household Members: spouse - Psychiatric History Expresses thoughts of harming self/others: None Suicide Plan Description: No Plan *Family Hx:: Unable to obtain Review of Systems - Review of Systems Review of systems:: pertinent systems reviewed and negative unless documented below - Constitutional Denies fever(s) - Eyes Denies change in vision - ENT Denies sore throat - *Cardiovascular Reports shortness of breath with activity, Denies chest pain at rest - *Respiratory Reports cough, Reports shortness of breath, Denies coughing up blood - *Gastrointestinal Denies abdominal pain - *Genitourinary Denies blood in urine - *Musculoskeletal Reports joint pain - Integumentary/Breasts Denies rash - *Neurologic Denies seizure-like activity Exam Vital signs and Labs for Last 24 Hours: Temp Pulse Resp BP Pulse Ox 98.0 F 83 20 119/48 94 L 09/07/17 07:45 09/07/17 07:45 09/07/17 08:15 09/07/17 07:45 09/07/17 08:15 Laboratory Results - last 24 hr 09/06/17 14:40: Digoxin 0.38 L 09/06/17 14:45: WBC 5.9, RBC 4.06 L, Hgb 11.2 L, Hct 34.7 L, MCV 85.4, MCH 27.6 , MCHC 32.3, RDW 14.7, Plt Count 272, MPV 7.5, Neut % (Auto) 74.6, Lymph % (Auto ) 9.3 L, [place] % (Auto) 7.7, Eos % (Auto) 7.0, Baso % (Auto) 1.3, Neut # (Auto) 4.4, Lymph # (Auto) 0.6 L, [place] # (Auto) 0.5, Eos # (Auto) 0.4, Baso # (Auto) 0.1 09/06/17 14:45: Sodium 139, Potassium 3.6, Chloride 104, Carbon Dioxide 32, Anion Gap 6.6, BUN 28 H, Creatinine 0.76, Estimated Creat Clear 56, Estimated GFR 100, Est GFR ( Amer) 121, Glucose 98, Calcium 8.8, Total Bilirubin 0.3, AST 10 L, ALT 12, Alkaline Phosphatase 78, Total Protein 6.1 L, Albumin 2.3 L, Globulin 3.8 H, Albumin/Globulin Ratio 0.6 L 09/06/17 14:45: Lactic Acid 1.8 09/06/17 14:52: Total Creatine Kinase 67, CK-MB (CK-2) 1.4 D, CK-MB (CK-2) Rel Index 2.1, Troponin I 0.05 09/06/17 17:00: Total Creatine Kinase 41, CK-MB (CK-2) 1.3, CK-MB (CK-2) Rel Index 3.2, Troponin I 0.05 I & O for Last 24 hours: Intake & Output 09/04/17 09/05/17 09/06/17 09/07/17 11:59 11:59 11:59 11:59 Intake Total 130 / 130 Output Total 100 / 100 Balance 30 / 30 Weight 135 lb - Constitutional no acute distress - *Routine HEENT Exam Head: Present: normocephalic Eye: Present: EOMI, PERRL ENT: Absent: mucous membranes dry - *Routine Neck Exam Present: supple - *Routine Respiratory Exam Present: decreased breath sounds. Absent: respiratory distress - *Routine Cardiovascular Exam Present: murmur, S4 - *Routine Abdominal Exam Present: soft - *Routine Extremities Exam Present: full ROM - *Routine Skin Exam Present: intact - *Routine Neurological Exam Present: alert, oriented X3, CN II-XII intact - Routine Psychiatric Exam Present: normal affect Hospital Course Hospital Course: pt with improvement with stroids and stable card enz - no chest pain today - pt on baseline o2 - Results Labs on day of discharge: Labs from last 24 hours 09/06/17 09/06/17 09/06/17 17:00 14:52 14:45 WBC RBC Hgb Hct MCV MCH MCHC RDW Plt Count MPV Neut % (Auto) Lymph % (Auto) [place] % (Auto) Eos % (Auto) Baso % (Auto) Neut # (Auto) Lymph # (Auto) [place] # (Auto) Eos # (Auto) Baso # (Auto) Sodium Potassium Chloride Carbon Dioxide Anion Gap BUN Creatinine Estimated Creat Clear Estimated GFR Est GFR ( Amer) Glucose Lactic Acid 1.8 Calcium Total Bilirubin AST ALT Alkaline Phosphatase Total Creatine Kinase 41 67 CK-MB (CK-2) 1.3 1.4 D CK-MB (CK-2) Rel Index 3.2 2.1 Troponin I 0.05 0.05 Total Protein Albumin Globulin Albumin/Globulin Ratio Digoxin 09/06/17 09/06/17 09/06/17 14:45 14:45 14:40 WBC 5.9 RBC 4.06 L Hgb 11.2 L Hct 34.7 L MCV 85.4 MCH 27.6 MCHC 32.3 RDW 14.7 Plt Count 272 MPV 7.5 Neut % (Auto) 74.6 Lymph % (Auto) 9.3 L [place] % (Auto) 7.7 Eos % (Auto) 7.0 Baso % (Auto) 1.3 Neut # (Auto) 4.4 Lymph # (Auto) 0.6 L [place] # (Auto) 0.5 Eos # (Auto) 0.4 Baso # (Auto) 0.1 Sodium 139 Potassium 3.6 Chloride 104 Carbon Dioxide 32 Anion Gap 6.6 BUN 28 H Creatinine 0.76 Estimated Creat Clear 56 Estimated GFR 100 Est GFR ( Amer) 121 Glucose 98 Lactic Acid Calcium 8.8 Total Bilirubin 0.3 AST 10 L ALT 12 Alkaline Phosphatase 78 Total Creatine Kinase CK-MB (CK-2) CK-MB (CK-2) Rel Index Troponin I Total Protein 6.1 L Albumin 2.3 L Globulin 3.8 H Albumin/Globulin Ratio 0.6 L Digoxin 0.38 L DS: Diagnosis - Discharge Diagnosis (1) Acute exacerbation of chronic obstructive airways disease Status: Acute Discharge Medications Discharge Medications: Home Medications Medication Instructions Recorded Confirmed Type Atorvastatin Calcium [Lipitor 80mg 80 mg PO HS 05/19/17 09/06/17 History Tablet] furosemide 40 mg tablet 40 mg PO DAILY tab 06/11/17 09/06/17 History Lisinopril [Lisinopril 2.5mg Tab] 2.5 mg PO DAILY 06/18/17 09/06/17 History Aspirin [Aspirin 81mg EC Tab] 81 mg PO DAILY 08/26/17 09/06/17 History Metoprolol Tartrate [Lopressor 12.5 mg PO BID 08/26/17 09/06/17 History 25mg tablet] Tamsulosin HCl [Flomax 0.4mg 0.4 mg PO DAILY 08/26/17 09/06/17 History capsule] Carvedilol [Carvedilol 3.125mg Tab] 3.125 mg PO DAILY 09/06/17 09/06/17 History Leflunomide 20 mg PO DAILY 09/06/17 09/06/17 History Disposition Disposition: Home, Self-Care
== END 2017-09-07 09:01 | disposition home or self-care (01) ==
LOC: 2ND 14:10 → ER 14:10 → 2ND 20:20
PROVIDERS: ADMIT Family Medicine; ATTEND Emergency Medicine

== ENCOUNTER 2017-12-09 23:44 | Inpatient (IN) ==
[2017-12-09 23:57] LABS: ABG Base Excess 11.9 mmol/L (-2.4-2.3); ABG HCO3 38.7 mmhg (22.0-26.0); ABG Oxygen Saturation 100 % (90-100); ABG PH 7.27 mmol/L (7.35-7.45); ABG PO2 348.4 mmhg (80-100); ABG TCO2 41.4 mmhg (23-27)
[2017-12-09 23:58] LABS: Allen's Test Acceptable
[2017-12-09 23:59] LABS: ABG PCO2 85.5 mmhg (35.0-45.0)
[2017-12-10 00:11] LABS: Basophils # 0.1 K/mm3 (0-0.2); Basophils % 0.6 % (0.1-2.0); Eosinophils # 0.1 K/mm3 (0.0-0.4); Eosinophils % 1.2 % (0.1-12.0); Hematocrit 41.4 % (42.0-52.0); Hemoglobin 11.9 g/dL (14.1-18.0); Lymphocytes # 0.6 K/mm3 (0.7-4.5); Lymphocytes % 6.4 K/mm3 (10-50); Mean Corpuscular HGB Conc 28.8 g/dL (31.8-35.4); Mean Corpuscular Hemoglobin 24.8 pg (27.0-31.2); Mean Corpuscular Volume 86.1 fl (80-94); Mean Platelet Volume 7.5 fl (7.4-10.4); Monocytes # 0.4 K/mm3 (0.1-1.0); Monocytes % 4.2 % (1.7-9.3); Neutrophils # 8.7 K/mm3 (1.8-7.8); Neutrophils % 87.6 % (37.0-80.0); Platelet Count 284 K/mm3 (142-424); Red Blood Count 4.81 M/mm3 (4.60-6.20); Red Cell Distribution Width 15.7 % (11.5-17.5); White Blood Count 9.9 K/mm3 (4.8-10.8)
[2017-12-10 00:22] LABS: Albumin Level 2.9 gm/dL (3.4-5.0); Albumin/Globulin Ratio 0.6 (1.1-1.8); Anion Gap 2.9 mEq/L (5-15); Bilirubin,Total 0.9 mg/dL (0.2-1.0); Calcium 8.9 mg/dL (8.5-10.1); Potassium 3.9 mmoL/L (3.5-5.1); Total Protein,Serum 7.9 gm/dL (6.4-8.2)
--- NOTE | 2017-12-10 00:29 | Emergency Department Note ---
ED Disposition Clinical Impression: Acute exacerbation of chronic obstructive airways disease, Tobacco use, Elevated troponin Community acquired pneumonia Qualifiers: Laterality: unspecified laterality Qualified Code(s): J18.9 - Pneumonia, unspecified organism Congestive heart failure Qualifiers: Heart failure type: combined systolic and diastolic Heart failure chronicity: acute on chronic Qualified Code(s): I50.43 - Acute on chronic combined systolic (congestive) and diastolic (congestive) heart failure Disposition: Admitted as Observation Condition on Discharge: Good Referrals: Patito Bailey PA [Primary Care Provider] - - Critical Care Critical Care Time: No Attestation: On 12/09/17, the high probability of a clinically significant, sudden or life threatening deterioration of the following system(s) required my full and direct attention, intervention and personal management. The time I documented below is in addition to time spent performing reported procedures but includes the following listed in this critical care notation. Medical Decision Making - Medical Records Medical records reviewed: Yes: I reviewed the patient's medical records. - Juan Inquiry Pt receiving controlled substance: No Vital Signs: 12/09/17 23:44 12/10/17 03:07 12/10/17 03:19 Temperature 96.6 F L Temperature Source Oral Pulse Rate [Right Brachial] 73 66 68 Respiratory Rate 22 18 16 Blood Pressure [Right Arm] 107/54 121/63 126/61 Blood Pressure Mean [Right Arm] 71 82 82 02 Sat by Pulse Oximetry 84 L 94 L 94 L Oxygen Delivery Method Non-Rebreather BiPAP BiPAP Oxygen Flow Rate (LPM) 15 12/10/17 03:50 Temperature Temperature Source Pulse Rate [Right Brachial] 66 Respiratory Rate 16 Blood Pressure [Right Arm] 115/59 Blood Pressure Mean [Right Arm] 77 02 Sat by Pulse Oximetry 99 Oxygen Delivery Method BiPAP Oxygen Flow Rate (LPM) - Lab Data Lab results reviewed: Yes: I reviewed the patient's lab results. Lab Results 12/09/17 23:44: Specimen Source Right radial, O2 % 100%, nrb, ABG pH 7.27 L, ABG pCO2 85.5 H, ABG pO2 348.4 H, ABG HCO3 38.7 H, ABG Total CO2 41.4 H, ABG O2 Saturation 100, ABG Base Excess 11.9 H, Dustin Test Acceptable 12/10/17 00:00: WBC 9.9, RBC 4.81, Hgb 11.9 L, Hct 41.4 L, MCV 86.1, MCH 24.8 L, MCHC 28.8 L, RDW 15.7, Plt Count 284, MPV 7.5, Neut % (Auto) 87.6 H, Lymph % (Auto) 6.4 L, [place] % (Auto) 4.2, Eos % (Auto) 1.2, Baso % (Auto) 0.6, Neut # (Auto) 8.7 H, Lymph # (Auto) 0.6 L, [place] # (Auto) 0.4, Eos # (Auto) 0.1, Baso # (Auto) 0.1, Total Counted 100, Neutrophils % (Manual) 78 H, Lymphocytes % (Manual) 10, Monocytes % (Manual) 9, Eosinophils % (Manual) 2, Metamyelocytes % 1.0, Platelet Estimate Normal, Hypochromasia 2+ 12/10/17 00:00: Sodium 143, Potassium 3.9, Chloride 103, Carbon Dioxide 41 H*, Anion Gap 2.9 L, BUN 27 H, Creatinine 0.98, Estimated Creat Clear 48, Estimated GFR 74, Est GFR ( Amer) 90, Glucose 143 H, Calcium 8.9, Total Bilirubin 0.9, AST 33, ALT 43, Alkaline Phosphatase 97, Troponin I 0.19 H, Total Protein 7.9, Albumin 2.9 L, Globulin 5.0 H, Albumin/Globulin Ratio 0.6 L 12/10/17 03:21: Specimen Source Right radial, O2 % 45%, ABG pH 7.33 L, ABG pCO2 85.9 H, ABG pO2 113.2 H, ABG HCO3 44.5 H, ABG Total CO2 47.1 H, ABG O2 Saturation 98, ABG Base Excess 18.6 H, Dustin Test Acceptable Result diagrams: 12/10/17 00:00 12/10/17 00:00 Orders (Tests/Meds): ED MEDICATIONS Generic Name Dose Route Start Last Admin Trade Name Freq PRN Reason Stop Dose Admin Ceftriaxone Sodium 1 gm/ 50 mls @ 100 mls/hr 12/10/17 04:15 12/10/17 04:16 Sodium Chloride IV 12/24/17 04:14 100 mls/hr Q24H RICHARD Administration Protocol Azithromycin 500 mg/ Sodium 250 mls @ 250 mls/hr 12/10/17 04:15 12/10/17 04:27 Chloride IV 12/24/17 04:14 250 mls/hr Q24H RICHARD Administration Protocol Discontinued Medications Generic Name Dose Route Start Last Admin Trade Name Bre PRN Reason Stop Dose Admin Albuterol/Ipratropium 3 ml 12/10/17 04:41 12/10/17 04:54 Duoneb 3ml Neb IH 12/10/17 04:42 3 ml ONCE ONE Administration Furosemide 40 mg 12/10/17 04:56 12/10/17 05:01 Lasix 40mg/4ml Vial IV 12/10/17 04:57 40 mg ONCE ONE Administration Methylprednisolone Sodium Succinate 125 mg 12/09/17 23:52 12/10/17 00:06 Solu-Medrol 125mg/2ml Vial IV 12/09/17 23:53 125 mg ONCE ONE Administration ORDERS Category Date Time Status Lactic Acid Stat Lab 12/09/17 23:52 Ordered Blood Culture Stat Micro 12/09/17 23:52 Ordered ABG [Arterial Blood Gas] Stat RT 12/10/17 03:21 Ordered Arterial Blood Gas Stat RT 12/09/17 23:44 Ordered ECG Request by /Lori Stat Y 12/09/17 23:51 Ordered - Radiology Data #1 Image(s): Chest Image Reviewed: Yes I discussed the image results w/the radiologist Preliminary Findings: Abnormal (chf) - ECG Data Tracing #1 I reviewed this ECG and interpreted as documented below: Arrhythmias present: sinus tach Ischemic changes: non-specific ST-T wave changes Resp/SOB HPI - General Chief Complaint: Shortness of Breath/Dyspnea Stated Complaint: SOA Time Seen by Provider: 12/09/17 23:50 Mode of Arrival: EMS Source of Information: Patient, EMS, Medical Record Limitations: No Limitations Description of Symptoms (Recalled from ER Triage Doc. by RN): BROUGHT IN BY EMS FOR REPORTS OF SOA. STATES HE HAS BEEN OUT OF BREATHING TX AT HOME, AND REPORTS HIS BREATHING HAS GOTTEN WORSE OVER THE LAST 2 DAYS. EMS REPORTED STATED HE SMOKED ALOT OF CIGARRETTES TODAY, AND HE KEEPS COUGHING. EMS REPORTS THAT WHEN THEY ARRIVED ON SCENE, PATIENT WAS TRIPODDING, AND IN SEVERE RESP DISTRESS. - History of Present Illness pt with progressive sob which started today with hx of copd - he has no cough and no hemoptysis- he has tob use MD Complaint: shortness of breath, cough Onset (ago): hour(s) Severity: moderate Known history of: COPD, congestive heart failure Associated symptoms: cough Treatment prior to arrival: bronchodilator - Related Data Home oxygen amount: 2 liters Home Medications Medication Instructions Recorded Confirmed furosemide 40 mg tablet 40 mg PO DAILY tab 06/11/17 12/09/17 Aspirin [Aspirin 81mg EC Tab] 81 mg PO DAILY 08/26/17 12/09/17 Metoprolol Tartrate [Lopressor 12.5 mg PO BID 08/26/17 12/09/17 25mg tablet] Previous Rx's Medication Instructions Recorded Digoxin 125 mcg PO DAILY #30 tablet 05/04/17 carvedilol 3.125 mg tablet 3.125 mg PO DAILY #90 tab 10/25/17 tamsulosin 0.4 mg capsule 0.4 mg PO DAILY #90 cap 10/25/17 Allergies Allergy/AdvReac Type Severity Reaction Status Date / Time morphine [MORPHINE] Allergy Unknown Verified 11/15/17 13:55 [facility] History I have reviewed the patient's past medical history: Yes Medical History: Reports:: Chronic Obstructive Pulmonary Disease (COPD), Coronary Artery Disease, Hyperlipidemia, Internal Pacemaker, Myocardial Infarction Denies:: Cancer, Diabetes Mellitus Type 1, Diabetes Mellitus Type 2, MRSA, Seizures Other Medical History: Denies: Blood Transfusion Reaction Other Surgeries: Yes: Appendectomy, CABG, Cardiac Catheterization, Coronary Stent, Open Heart Surgery, Pacemaker, Other Amputation: No Fractures: No - Social History Smoking Status: Current every day smoker Tobacco Type: cigarettes # Packs/Day (cigarettes): 1 #Yrs smoked (if former smoker): 30 Alcohol Intake: never Alcohol Intake Frequency:: other Substance Use Type: denies use Occupational Status: retired Housing: house Household Members: spouse - Psychiatric History Expresses thoughts of harming self/others: None Suicide Plan Description: No Plan Family Hx:: Unable to obtain ROS Obtained: Yes All systems reviewed & no additional complaints - Constitutional Constitutional: Denies fever(s), Reports weakness - Eyes Eyes: Denies change in vision - ENT Ears, Nose, Mouth, and Throat: Denies sore throat - Cardiovascular Cardiovascular: Reports chest pain - Respiratory Respiratory: Yes cough, No coughing up blood - Gastrointestinal Gastrointestingal: Denies: abdominal pain - Genitourinary Male Genitourinary: Denies hematuria - Musculoskeletal Musculoskeletal: Denies joint pain, Denies limited range of motion - Integumentary/Breasts Skin/Breast: Denies rash - Neurologic Neurologic: Denies seizure-like activity Physical Exam - General General appearance: alert - Head Head exam: atraumatic - Eye Eye exam: Present: PERRL, EOMI - ENT ENT exam: Present: mucous membranes dry - Neck Neck exam: Present: trachea midline - Respiratory Respiratory exam: Present: wheezes, prolonged expiratory phase. Absent: respiratory distress - Cardiovascular Cardiovascular exam: Present: regular rate, systolic murmur, +S4 - Abdominal Exam Abdominal exam: Present: soft - Neurological Exam Neurological exam: Present: alert, CN II-XII intact - Psychiatric Psychiatric exam: Present: normal affect - Skin Skin exam: Absent: rash
[2017-12-10 04:10] LABS: ABG Base Excess 18.6 mmol/L (-2.4-2.3); ABG HCO3 44.5 mmhg (22.0-26.0); ABG Oxygen Saturation 98 % (90-100); ABG PH 7.33 mmol/L (7.35-7.45); ABG PO2 113.2 mmhg (80-100); ABG TCO2 47.1 mmhg (23-27)
[2017-12-10 04:13] LABS: ABG PCO2 85.9 mmhg (35.0-45.0); Allen's Test Acceptable; Oxygen 45% %
[2017-12-10 04:23] LABS: Eosinophils % 2 % (0-3); Hypochromasia 2+; Lymphocytes % 10 % (10-50); Monocytes % 9 % (2-9); Neutrophils % 78 % (42-76); Total Cells Counted 100
--- NOTE | 2017-12-10 07:25 | Pharmacy Consult Notes ---
[facility] Pharmacy VTE Monitoring - Patient Demographics Admission date: 12/09/17 Report Date: 12/10/17 Time: 07:25 Allergies/Adverse Reactions: Patient Allergies morphine [MORPHINE] Allergy (Unknown, Verified 12/10/17 05:39) Height: 1.65 m Weight: 64.665 kg Patient Problems: Current Active Problems Congestive heart failure (Acute) Tobacco use (Acute) Elevated troponin (Acute) Community acquired pneumonia (Acute) Acute exacerbation of chronic obstructive airways disease (Acute) - VTE Risk Labs: VTE Related Lab Results Hgb 11.9 g/dL (14.1-18.0) L 12/10/17 00:00 Hct 41.4 % (42.0-52.0) L 12/10/17 00:00 Plt Count 284 K/mm3 (142-424) 12/10/17 00:00 BUN 27 mg/dL (7-18) H 12/10/17 00:00 Creatinine 0.98 mg/dL (0.70-1.30) 12/10/17 00:00 Estimated Creat Clear 48 mL/min (0-300) 12/10/17 00:00 Was VTE Risk Assessment Performed: No VTE Score: 3 VTE Risk Level: Low Risk Clinical Trial Participant: No - Prophylaxis VTE Prophylaxis Ordered?: Yes Types of VTE Prophylaxis: TEDS Knee High
--- NOTE | 2017-12-10 07:28 | Consult Report ---
History of Present Illness Consult date: 12/10/17 Requesting physician: Brian Atkinson Consult reason: shortness of breath Chief complaint: Chest pain, SOA Additional Medical History:: 1. Coronary artery disease A. History of coronary bypass grafting, 2006 B. History of non-STEMI with drug-eluting stent placed to saphenous vein graft to the RCA, 03/2016. C. Non-STEMI with additional drug-eluting stent placed to saphenous vein graft to RCA, 04/2017 D. ZAIRA to SVG to RCA, 08/20/2017 E. NSTEMI, 08/25/2017, with cardiac cath, The left main artery has a long eccentric 10-20% distal stenosis. The left anterior descending artery has a proximal 40-50% stenosis followed by additional 40% stenoses. The LAD is then occluded after 3 diagonal arteries and the first septal audio visual technician. The circumflex artery is a nondominant yet still large vessel which has proximal 40% mid vessel 40% stenoses distal 40% stenoses. The right coronary artery known to be proximally occluded. 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 Estimated ejection fraction 20%. The left ventricular end-diastolic pressure 20 mmHg. The saphenous vein graft to the circumflex artery is known to be ostially occluded. The saphenous vein graft to the distal dominant right coronary is widely patent with excellent flow down the graft and into the [place] vessel. 2. Cardiomyopathy, EF 20% at time of non-STEMI, 03/2015 A. AICD implantation, 04/2017, [place] B. Echo, 06/2017, Moderately enlarged left atrium, mildly dilated left ventricle, mild concentric left ventricular hypertrophy, visually estimated ejection fraction of 20-25% with multiple segmental wall motion abnormalities in the mid to distal septum, anterior, anteroapical, apical and anterolateral areas, grade 1 diastolic dysfunction seen with tissue Doppler evidence of raised left atrial pressure. Moderate aortic, mild mitral and tricuspid regurgitation, calculated right ventricular systolic pressure 45 mmHg consistent with moderate pulmonary hypertension. No significant pericardial effusion noted. C. Echo, 08/2017, EF 27% with mild to moderate and mild AR and RVSP of 35- 40 mm Hg. 3. Tobacco use A. Chronic obstructive pulmonary disease with home O2 use 4. Hypertension 5. Hyperlipidemia 6. New onset A. fib with RVR, 08/20/2017 A. CHADS-VASC score of 4, however he is a poor candidate for anticoagulation. B. Cardioverted to NSR, 08/20/17 7. DM type 2 History of present illness: 77-year-old white male with known coronary artery disease, AICD in situ and chronic obstructive pulmonary disease presented to the emergency department with increasing shortness of breath, productive cough and chest discomfort. Patient states symptoms have been progressive over the last few days. ER workup revealed evidence of pneumonia, elevated BNP, congestive heart failure and elevated troponin. Patient was admitted for further evaluation and treatment. Due to elevated troponin and known cardiac history cardiology was consulted for evaluation recommendations. Patient has been on BiPAP overnight with improvement in his respiratory status. [facility] History Medical History: Reports:: Chronic Obstructive Pulmonary Disease (COPD), Coronary Artery Disease, Hyperlipidemia, Internal Pacemaker, Myocardial Infarction Denies:: Cancer, Diabetes Mellitus Type 1, Diabetes Mellitus Type 2, MRSA, Seizures Other Medical History: Denies: Blood Transfusion Reaction Other Surgeries: Yes: Appendectomy, CABG, Cardiac Catheterization, Coronary Stent, Open Heart Surgery, Pacemaker, Other Amputation: No Fractures: No - *Social History Smoking Status: Current every day smoker Tobacco Type: cigarettes # Packs/Day (cigarettes): 1 #Yrs smoked (if former smoker): 30 Alcohol Intake: never Alcohol Intake Frequency:: other Substance Use Type: denies use Occupational Status: retired Housing: house Household Members: spouse - Psychiatric History Expresses thoughts of harming self/others: None Suicide Plan Description: No Plan *Family Hx:: Unable to obtain Meds Home Medications Medication Instructions Recorded Confirmed Type furosemide 40 mg tablet 40 mg PO DAILY tab 06/11/17 12/10/17 History Aspirin [Aspirin 81mg EC Tab] 81 mg PO DAILY 08/26/17 12/10/17 History Metoprolol Tartrate [Lopressor 12.5 mg PO BID 08/26/17 12/10/17 History 25mg tablet] Allergies Allergy/AdvReac Type Severity Reaction Status Date / Time morphine [MORPHINE] Allergy Unknown Verified 12/10/17 05:39 Review of Systems - *Cardiovascular Reports chest pain, Reports shortness of breath, Reports shortness of breath with activity - *Respiratory Reports chest congestion, Reports cough, Reports shortness of breath, Reports shortness of breath with activity - *Gastrointestinal Denies abdominal pain - *Genitourinary Denies painful urination - *Musculoskeletal Reports back pain - *Neurologic Reports weakness, Denies seizure-like activity Exam Vital signs and Labs for Last 24 Hours: Temp Pulse Resp BP Pulse Ox 98.1 F 60 20 133/89 96 12/10/17 05:35 12/10/17 06:46 12/10/17 05:54 12/10/17 06:00 12/10/17 06:00 Laboratory Results - last 24 hr 12/09/17 23:44: Specimen Source Right radial, O2 % 100%, nrb, ABG pH 7.27 L, ABG pCO2 85.5 H, ABG pO2 348.4 H, ABG HCO3 38.7 H, ABG Total CO2 41.4 H, ABG O2 Saturation 100, ABG Base Excess 11.9 H, Dustin Test Acceptable 12/10/17 00:00: WBC 9.9, RBC 4.81, Hgb 11.9 L, Hct 41.4 L, MCV 86.1, MCH 24.8 L, MCHC 28.8 L, RDW 15.7, Plt Count 284, MPV 7.5, Neut % (Auto) 87.6 H, Lymph % (Auto) 6.4 L, [place] % (Auto) 4.2, Eos % (Auto) 1.2, Baso % (Auto) 0.6, Neut # (Auto) 8.7 H, Lymph # (Auto) 0.6 L, [place] # (Auto) 0.4, Eos # (Auto) 0.1, Baso # (Auto) 0.1, Total Counted 100, Neutrophils % (Manual) 78 H, Lymphocytes % (Manual) 10, Monocytes % (Manual) 9, Eosinophils % (Manual) 2, Metamyelocytes % 1.0, Platelet Estimate Normal, Hypochromasia 2+ 12/10/17 00:00: Sodium 143, Potassium 3.9, Chloride 103, Carbon Dioxide 41 H*, Anion Gap 2.9 L, BUN 27 H, Creatinine 0.98, Estimated Creat Clear 48, Estimated GFR 74, Est GFR ( Amer) 90, Glucose 143 H, Calcium 8.9, Total Bilirubin 0.9, AST 33, ALT 43, Alkaline Phosphatase 97, Troponin I 0.19 H, Total Protein 7.9, Albumin 2.9 L, Globulin 5.0 H, Albumin/Globulin Ratio 0.6 L 12/10/17 03:21: Specimen Source Right radial, O2 % 45%, ABG pH 7.33 L, ABG pCO2 85.9 H, ABG pO2 113.2 H, ABG HCO3 44.5 H, ABG Total CO2 47.1 H, ABG O2 Saturation 98, ABG Base Excess 18.6 H, Dustin Test Acceptable I & O for Last 24 hours: Intake & Output 12/07/17 12/08/17 12/09/17 12/10/17 11:59 11:59 11:59 11:59 Intake Total 300 / 300 Balance 300 / 300 Weight 142 lb 9 oz - *Routine Neck Exam Present: supple. Absent: JVD, carotid bruit - *Routine Respiratory Exam Present: decreased breath sounds, rales, rhonchi, diminished air movement. Abse nt: accessory muscle use, wheezes - *Routine Cardiovascular Exam Present: RRR. Absent: murmur, gallop, rubs - *Routine Abdominal Exam Present: soft. Absent: tenderness, distended, guarding - *Routine Extremities Exam Present: edema. Absent: calf tenderness - *Routine Neurological Exam Present: alert, oriented X3, moving all extremities Assessment and Plan (1) Acute exacerbation of chronic obstructive airways disease Current visit: Yes Status: Acute Category: Medical Code(s): J44.1 - Chronic obstructive pulmonary disease with (acute) exacerbation (2) Community acquired pneumonia Current visit: Yes Status: Acute Qualifiers: Laterality: unspecified laterality Qualified Code(s): J18.9 - Pneumonia, unspecified organism Category: Medical Code(s): J18.9 - Pneumonia, unspecified organism (3) Elevated troponin Current visit: Yes Status: Acute Category: Medical Code(s): R74.8 - Abnormal levels of other serum enzymes (4) Biventricular CHF (congestive heart failure) Current visit: Yes Status: Acute Category: Medical Code(s): I50.82 - Biventricular heart failure (5) Tobacco use Current visit: Yes Status: Acute Category: Social Hx Code(s): Z72.0 - Tobacco use (6) Automatic implantable cardiac defibrillator in situ Current visit: No Status: Chronic Category: Medical Code(s): Z95.810 - Presence of automatic (implantable) cardiac defibrillator (7) CAD (coronary artery disease) Current visit: No Status: Chronic Qualifiers: Coronary Disease-Associated Artery/Lesion type: [place] artery [place] vs. transplanted heart: [place] heart Associated angina: with unstable angina Qualified Code(s): I25.110 - Atherosclerotic heart disease of [place] coronary artery with unstable angina pectoris Category: Medical Code(s): I25.10 - Atherosclerotic heart disease of [place] coronary artery without angina pectoris (8) Stented coronary artery Current visit: No Status: Chronic Category: Surgical Code(s): Z95.5 - Presence of coronary angioplasty implant and graft - Assessment and plan all Dx Assessment and Plan for all problems:: 1. Elevated troponin felt secondary to respiratory distress from pneumonia and biventricular acute on chronic congestive heart failure. Will not pursue cardiac cath at this time. Continue IV antibiotics for pneumonia and BiPAP for pulmonary disease. 2. Will stop coreg and continue metoprolol for history of SVT/A.fib, along with digoxin and entresto. 3. Continue DAPT with ASA and plavix due to recent ZAIRA placement.
[2017-12-10 08:58] LABS: ABG HCO3 38.6 mmhg (22.0-26.0); ABG Oxygen Saturation 95 % (90-100); ABG PH 7.48 mmol/L (7.35-7.45); ABG PO2 70.2 mmhg (80-100); ABG TCO2 40.2 mmhg (23-27)
[2017-12-10 09:00] LABS: Basophils % 0.2 % (0.1-2.0); Eosinophils % 0.6 % (0.1-12.0); Hematocrit 34.1 % (42.0-52.0); Hemoglobin 10.9 g/dL (14.1-18.0); Lymphocytes # 0.4 K/mm3 (0.7-4.5); Lymphocytes % 6.3 K/mm3 (10-50); Mean Corpuscular HGB Conc 32.1 g/dL (31.8-35.4); Mean Corpuscular Hemoglobin 25.7 pg (27.0-31.2); Mean Corpuscular Volume 80.2 fl (80-94); Mean Platelet Volume 8.4 fl (7.4-10.4); Monocytes # 0.2 K/mm3 (0.1-1.0); Monocytes % 3.4 % (1.7-9.3); Neutrophils # 6.3 K/mm3 (1.8-7.8); Neutrophils % 89.4 % (37.0-80.0); Platelet Count 229 K/mm3 (142-424); Red Blood Count 4.25 M/mm3 (4.60-6.20)
[2017-12-10 09:00] LABS: Allen's Test ACCEPTABLE; Oxygen 30 %; PEEP 18
--- NOTE | 2017-12-10 09:00 | History & Physical Report ---
*Admission Date: 12/09/17 *Chief complaint: sob *History of present illness: 77 yr old male brought in by EMS complaining of shortness of air. Patient states his been out of his breathing treatments at home and his breathing has gotten worse over the last 2 days. EMS reported to the ER stating he smoked a l ot of cigarettes and he keeps coughing. EMS states they arrived on scene patient was tripoding and in severe respiratory distress. Per ER note in the ER patient was placed on BiPAP. Patient admitted for respiratory failure for further workup. And cardiology consult. [facility] History I have reviewed the patient's past medical history: Yes Medical History: Reports:: Chronic Obstructive Pulmonary Disease (COPD), Coronary Artery Disease, Hyperlipidemia, Internal Pacemaker, Myocardial Infarction Denies:: Cancer, Diabetes Mellitus Type 1, Diabetes Mellitus Type 2, MRSA, Seizures Other Medical History: Denies: Blood Transfusion Reaction Other Surgeries: Yes: Appendectomy, CABG, Cardiac Catheterization, Coronary Stent, Open Heart Surgery, Pacemaker, Other Amputation: No Fractures: No - *Social History Smoking Status: Current every day smoker Tobacco Type: cigarettes # Packs/Day (cigarettes): 1 #Yrs smoked (if former smoker): 30 Alcohol Intake: never Alcohol Intake Frequency:: other Substance Use Type: denies use Occupational Status: retired Housing: house Household Members: spouse - Psychiatric History Expresses thoughts of harming self/others: None Suicide Plan Description: No Plan *Family Hx:: Unable to obtain Review of Systems - Review of Systems Review of systems:: unable to obtain, other, pertinent systems reviewed and negative unless documented below - *Respiratory Reports cough, Reports shortness of breath, Reports shortness of breath with activity - *Neurologic Reports weakness, Denies seizure-like activity Meds Home Medications Medication Instructions Recorded Confirmed Type furosemide 40 mg tablet 40 mg PO DAILY tab 06/11/17 12/10/17 History Aspirin [Aspirin 81mg EC Tab] 81 mg PO DAILY 08/26/17 12/10/17 History Metoprolol Tartrate [Lopressor 12.5 mg PO BID 08/26/17 12/10/17 History 25mg tablet] Allergies Allergy/AdvReac Type Severity Reaction Status Date / Time morphine [MORPHINE] Allergy Unknown Verified 12/10/17 05:39 Exam Vital signs and Labs for Last 24 Hours: Temp Pulse Resp BP Pulse Ox 98.7 F 68 24 110/58 98 12/10/17 08:00 12/10/17 08:00 12/10/17 08:00 12/10/17 08:00 12/10/17 08:00 Laboratory Results - last 24 hr 12/09/17 23:44: Specimen Source Right radial, O2 % 100%, nrb, ABG pH 7.27 L, ABG pCO2 85.5 H, ABG pO2 348.4 H, ABG HCO3 38.7 H, ABG Total CO2 41.4 H, ABG O2 Saturation 100, ABG Base Excess 11.9 H, Dustin Test Acceptable 12/10/17 00:00: WBC 9.9, RBC 4.81, Hgb 11.9 L, Hct 41.4 L, MCV 86.1, MCH 24.8 L, MCHC 28.8 L, RDW 15.7, Plt Count 284, MPV 7.5, Neut % (Auto) 87.6 H, Lymph % (Auto) 6.4 L, [place] % (Auto) 4.2, Eos % (Auto) 1.2, Baso % (Auto) 0.6, Neut # (Auto) 8.7 H, Lymph # (Auto) 0.6 L, [place] # (Auto) 0.4, Eos # (Auto) 0.1, Baso # (Auto) 0.1, Total Counted 100, Neutrophils % (Manual) 78 H, Lymphocytes % (Manual) 10, Monocytes % (Manual) 9, Eosinophils % (Manual) 2, Metamyelocytes % 1.0, Platelet Estimate Normal, Hypochromasia 2+ 12/10/17 00:00: Sodium 143, Potassium 3.9, Chloride 103, Carbon Dioxide 41 H*, Anion Gap 2.9 L, BUN 27 H, Creatinine 0.98, Estimated Creat Clear 48, Estimated GFR 74, Est GFR ( Amer) 90, Glucose 143 H, Calcium 8.9, Total Bilirubin 0.9, AST 33, ALT 43, Alkaline Phosphatase 97, Troponin I 0.19 H, Total Protein 7.9, Albumin 2.9 L, Globulin 5.0 H, Albumin/Globulin Ratio 0.6 L 12/10/17 03:21: Specimen Source Right radial, O2 % 45%, ABG pH 7.33 L, ABG pCO2 85.9 H, ABG pO2 113.2 H, ABG HCO3 44.5 H, ABG Total CO2 47.1 H, ABG O2 Saturation 98, ABG Base Excess 18.6 H, Dustin Test Acceptable I & O for Last 24 hours: Intake & Output 12/07/17 12/08/17 12/09/17 12/10/17 11:59 11:59 11:59 11:59 Intake Total 300 / 300 Balance 300 / 300 Weight 142 lb 9 oz - *Routine HEENT Exam Head: Present: normocephalic Eye: Present: EOMI, PERRL ENT: Present: mucous membranes moist - *Routine Neck Exam Present: supple. Absent: lymphadenopathy - *Routine Respiratory Exam Present: wheezes, diminished air movement - *Routine Cardiovascular Exam Present: murmur Comments: Pacemaker in place - *Routine Abdominal Exam Present: soft, normoactive bowel sounds. Absent: tenderness - *Routine Extremities Exam Absent: cyanosis, clubbing, edema - *Routine Skin Exam Present: warm. Absent: rash - *Routine Neurological Exam Present: alert, oriented X3 Assessment and Plan - Assessment and plan all Dx Assessment and Plan for all problems:: Rounded with Dr. Atkinson all orders per [place]
[2017-12-10 09:02] LABS: ABG PCO2 53.1 mmhg (35.0-45.0)
[2017-12-10 09:19] LABS: Anion Gap 13.4 mEq/L (5-15); Calcium 8.2 mg/dL (8.5-10.1); Potassium 4.4 mmoL/L (3.5-5.1)
[2017-12-10 10:03] LABS: Lymphocytes % 3 % (10-50); Neutrophils % 97 % (42-76); Total Cells Counted 100
[2017-12-11 08:11] LABS: Basophils % 0.1 % (0.1-2.0); Eosinophils % 0.1 % (0.1-12.0); Hematocrit 38.5 % (42.0-52.0); Hemoglobin 11.2 g/dL (14.1-18.0); Lymphocytes # 0.3 K/mm3 (0.7-4.5); Mean Corpuscular Volume 86.1 fl (80-94); Mean Platelet Volume 8.7 fl (7.4-10.4); Monocytes # 0.2 K/mm3 (0.1-1.0); Neutrophils # 10.2 K/mm3 (1.8-7.8); Neutrophils % 94.8 % (37.0-80.0); Platelet Count 230 K/mm3 (142-424); Red Blood Count 4.48 M/mm3 (4.60-6.20); White Blood Count 10.8 K/mm3 (4.8-10.8)
[2017-12-11 08:28] LABS: Albumin Level 2.3 gm/dL (3.4-5.0); Albumin/Globulin Ratio 0.6 (1.1-1.8); Anion Gap 4.7 mEq/L (5-15); Bilirubin,Total 0.4 mg/dL (0.2-1.0); Calcium 7.7 mg/dL (8.5-10.1); Globulin 4.1 gm/dl (1.3-3.2); Potassium 3.7 mmoL/L (3.5-5.1); Total Protein,Serum 6.4 gm/dL (6.4-8.2)
--- NOTE | 2017-12-11 08:28 | Progress Note ---
Internal Medicine - PN: Subj *Date: 12/11/17 *Time: 08:26 Interval history: doing better - cough more productive Exam Vital signs and Labs for Last 24 Hours: Temp Pulse Resp BP Pulse Ox 97.2 F L 67 18 95/63 90 L 12/11/17 08:00 12/11/17 08:00 12/11/17 08:00 12/11/17 08:00 12/11/17 08:00 Laboratory Results - last 24 hr 12/10/17 08:15: Lactate 1.3 12/10/17 08:15: WBC 7.0 D, RBC 4.25 L, Hgb 10.9 L, Hct 34.1 L, MCV 80.2, MCH 25.7 L, MCHC 32.1, RDW 16.0, Plt Count 229, MPV 8.4, Neut % (Auto) 89.4 H, Lymph % (Auto) 6.3 L, [place] % (Auto) 3.4, Eos % (Auto) 0.6, Baso % (Auto) 0.2, Neut # (Auto) 6.3, Lymph # (Auto) 0.4 L, [place] # (Auto) 0.2, Eos # (Auto) 0.0, Baso # (Auto) 0.0, Total Counted 100, Neutrophils % (Manual) 97 H, Lymphocytes % (Manual) 3 L, Platelet Estimate Normal, RBC Morphology Not Reportable, Microcytosis 1+ 12/10/17 08:15: Sodium 147 H, Potassium 4.4, Chloride 103, Carbon Dioxide 35 H, Anion Gap 13.4, BUN 31 H, Creatinine 0.75 D, Estimated Creat Clear 57, Estimated GFR 101, Est GFR ( Amer) 123 D, Glucose 112 H D, Calcium 8.2 L , Magnesium 1.7 12/10/17 08:15: Troponin I 0.10 H 12/10/17 08:39: Specimen Source Rt radial, O2 % 30, ABG pH 7.48 H, ABG pCO2 53.1 H, ABG pO2 70.2 L, ABG HCO3 38.6 H, ABG Total CO2 40.2 H, ABG O2 Saturation 95, ABG Base Excess 15.0 H, Dustin Test Acceptable, Vent Rate 20, PEEP 18 12/10/17 11:22: Troponin I 0.09 H I & O for Last 24 hours: Intake & Output 12/08/17 12/09/17 12/10/17 12/11/17 11:59 11:59 11:59 11:59 Intake Total 300 / 300 1695 / 1695 Output Total 200 / 200 425 / 425 Balance 100 / 100 1270 / 1270 Weight 142 lb 9 oz 141 lb 7 oz Microbiology Reports for the Last 24 Hours: Microbiology 12/10/17 13:55 Sputum - Expectorated Sputum Gram Stain - Final - Constitutional no acute distress - *Routine HEENT Exam Head: Present: normocephalic Eye: Present: EOMI, PERRL ENT: Present: mucous membranes dry - *Routine Neck Exam Present: supple - *Routine Respiratory Exam Present: decreased breath sounds, prolonged expiratory phase. Absent: respiratory distress - *Routine Cardiovascular Exam Present: RRR, murmur - *Routine Abdominal Exam Present: soft - *Routine Extremities Exam Present: full ROM - *Routine Skin Exam Present: intact - *Routine Neurological Exam Present: alert, oriented X3, CN II-XII intact - Routine Psychiatric Exam Present: normal affect Assessment and Plan (1) Acute exacerbation of chronic obstructive airways disease Current visit: Yes Status: Acute Category: Medical Code(s): J44.1 - Chronic obstructive pulmonary disease with (acute) exacerbation (2) Community acquired pneumonia Current visit: Yes Status: Acute Qualifiers: Laterality: unspecified laterality Qualified Code(s): J18.9 - Pneumonia, unspecified organism Category: Medical Code(s): J18.9 - Pneumonia, unspecified organism (3) Elevated troponin Current visit: Yes Status: Acute Category: Medical Code(s): R74.8 - Abnormal levels of other serum enzymes (4) Biventricular CHF (congestive heart failure) Current visit: Yes Status: Acute Category: Medical Code(s): I50.82 - Biventricular heart failure (5) Tobacco use Current visit: Yes Status: Acute Category: Social Hx Code(s): Z72.0 - Tobacco use (6) Automatic implantable cardiac defibrillator in situ Current visit: No Status: Chronic Category: Medical Code(s): Z95.810 - Presence of automatic (implantable) cardiac defibrillator (7) CAD (coronary artery disease) Current visit: No Status: Chronic Qualifiers: Coronary Disease-Associated Artery/Lesion type: [place] artery [place] vs. transplanted heart: [place] heart Associated angina: with unstable angina Qualified Code(s): I25.110 - Atherosclerotic heart disease of [place] coronary artery with unstable angina pectoris Category: Medical Code(s): I25.10 - Atherosclerotic heart disease of [place] coronary artery without angina pectoris (8) Stented coronary artery Current visit: No Status: Chronic Category: Surgical Code(s): Z95.5 - Presence of coronary angioplasty implant and graft
[2017-12-11 10:17] LABS: Lymphocytes % 3 % (10-50); Monocytes % 1 % (2-9); Neutrophils % 89 % (42-76); Total Cells Counted 100
[2017-12-11 10:18] LABS: Hypochromasia 2+
[2017-12-12 06:17] LABS: Eosinophils % 0.1 % (0.1-12.0); Hematocrit 35.3 % (42.0-52.0); Hemoglobin 10.3 g/dL (14.1-18.0); Lymphocytes # 0.3 K/mm3 (0.7-4.5); Lymphocytes % 3.3 K/mm3 (10-50); Mean Corpuscular HGB Conc 29.3 g/dL (31.8-35.4); Mean Corpuscular Volume 85.2 fl (80-94); Mean Platelet Volume 7.6 fl (7.4-10.4); Monocytes # 0.3 K/mm3 (0.1-1.0); Monocytes % 2.8 % (1.7-9.3); Neutrophils # 8.7 K/mm3 (1.8-7.8); Neutrophils % 93.8 % (37.0-80.0); Platelet Count 229 K/mm3 (142-424); Red Blood Count 4.15 M/mm3 (4.60-6.20); Red Cell Distribution Width 16.1 % (11.5-17.5); White Blood Count 9.3 K/mm3 (4.8-10.8)
[2017-12-12 06:49] LABS: Albumin Level 2.2 gm/dL (3.4-5.0); Albumin/Globulin Ratio 0.7 (1.1-1.8); Anion Gap 0.8 mEq/L (5-15); Bilirubin,Total 0.2 mg/dL (0.2-1.0); Calcium 7.8 mg/dL (8.5-10.1); Globulin 3.3 gm/dl (1.3-3.2); Potassium 3.8 mmoL/L (3.5-5.1); Total Protein,Serum 5.5 gm/dL (6.4-8.2)
[2017-12-12 07:11] LABS: Lymphocytes % 6 % (10-50); Neutrophils % 86 % (42-76); Total Cells Counted 100
[2017-12-12 07:12] LABS: Hypochromasia 2+
--- NOTE | 2017-12-12 07:52 | Progress Note ---
Internal Medicine - PN: Subj *Date: 12/12/17 *Time: 07:49 Interval history: no specific c/o but had run of v tach last pm - more wheezing Exam Vital signs and Labs for Last 24 Hours: Temp Pulse Resp BP Pulse Ox 97.2 F L 68 20 121/52 90 L 12/12/17 07:34 12/12/17 07:34 12/12/17 07:34 12/12/17 07:34 12/12/17 07:34 Laboratory Results - last 24 hr 12/11/17 08:00: WBC 10.8 D, RBC 4.48 L, Hgb 11.2 L, Hct 38.5 L, MCV 86.1, MCH 25.0 L, MCHC 29.0 L, RDW 16.0, Plt Count 230, MPV 8.7, Neut % (Auto) 94.8 H, Lymph % (Auto) 3.0 L, [place] % (Auto) 2.0, Eos % (Auto) 0.1, Baso % (Auto) 0.1, Neut # (Auto) 10.2 H, Lymph # (Auto) 0.3 L, [place] # (Auto) 0.2, Eos # (Auto) 0.0, Baso # (Auto) 0.0, Total Counted 100, Neutrophils % (Manual) 89 H, Band Neutrophils % 7.0, Lymphocytes % (Manual) 3 L, Monocytes % (Manual) 1 L, Platelet Estimate Normal, Hypochromasia 2+ 12/11/17 08:00: Sodium 146 H, Potassium 3.7, Chloride 103, Carbon Dioxide 42 H*, Anion Gap 4.7 L, BUN 37 H, Creatinine 0.86, Estimated Creat Clear 57, Estimated GFR 86, Est GFR ( Amer) 105, Glucose 178 H D, Calcium 7.7 L, Total Bilirubin 0.4, AST 11 L D, ALT 29 D, Alkaline Phosphatase 74, Total Protein 6.4, Albumin 2.3 L D, Globulin 4.1 H, Albumin/Globulin Ratio 0.6 L 12/12/17 05:40: WBC 9.3, RBC 4.15 L, Hgb 10.3 L, Hct 35.3 L, MCV 85.2, MCH 25.0 L, MCHC 29.3 L, RDW 16.1, Plt Count 229, MPV 7.6, Neut % (Auto) 93.8 H, Lymph % (Auto) 3.3 L, [place] % (Auto) 2.8, Eos % (Auto) 0.1, Baso % (Auto) 0.0 L, Neut # (Auto) 8.7 H, Lymph # (Auto) 0.3 L, [place] # (Auto) 0.3, Eos # (Auto) 0.0, Baso # (Auto) 0.0, Total Counted 100, Neutrophils % (Manual) 86 H, Band Neutrophils % 8.0, Lymphocytes % (Manual) 6 L, Platelet Estimate Normal, Hypochromasia 2+ 12/12/17 05:40: Sodium 143, Potassium 3.8, Chloride 106, Carbon Dioxide 40 H, Anion Gap 0.8 L, BUN 41 H, Creatinine 0.72, Estimated Creat Clear 59, Estimated GFR 106, Est GFR ( Amer) 128 D, Glucose 139 H D, Calcium 7.8 L, Total Bilirubin 0.2, AST 10 L, ALT 28, Alkaline Phosphatase 66, Total Protein 5.5 L, Albumin 2.2 L, Globulin 3.3 H, Albumin/Globulin Ratio 0.7 L I & O for Last 24 hours: Intake & Output 12/09/17 12/10/17 12/11/17 12/12/17 11:59 11:59 11:59 11:59 Intake Total 300 / 300 1695 / 1695 1892 / 1892 Output Total 200 / 200 675 / 675 1475 / 1475 Balance 100 / 100 1020 / 1020 417 / 417 Weight 142 lb 9 oz 141 lb 7 oz 147 lb 6 oz Microbiology Reports for the Last 24 Hours: Microbiology 12/10/17 13:55 Sputum - Expectorated Sputum Gram Stain - Final 12/10/17 13:55 Sputum - Expectorated Sputum Sputum Culture - Preliminary Gram Negative Rods - Constitutional no acute distress - *Routine HEENT Exam Head: Present: normocephalic Eye: Present: EOMI, PERRL ENT: Present: mucous membranes dry - *Routine Neck Exam Present: supple. Absent: JVD - *Routine Respiratory Exam Present: prolonged expiratory phase, wheezes. Absent: respiratory distress - *Routine Cardiovascular Exam Present: RRR, murmur, S4 - *Routine Abdominal Exam Present: soft - *Routine Extremities Exam Absent: calf tenderness - *Routine Skin Exam Present: intact - *Routine Neurological Exam Present: alert, oriented X3, CN II-XII intact - Routine Psychiatric Exam Present: normal affect Assessment and Plan (1) Acute exacerbation of chronic obstructive airways disease Current visit: Yes Status: Acute Category: Medical Code(s): J44.1 - Chronic obstructive pulmonary disease with (acute) exacerbation (2) Community acquired pneumonia Current visit: Yes Status: Acute Qualifiers: Laterality: unspecified laterality Qualified Code(s): J18.9 - Pneumonia, unspecified organism Category: Medical Code(s): J18.9 - Pneumonia, unspecified organism (3) Elevated troponin Current visit: Yes Status: Acute Category: Medical Code(s): R74.8 - Abnormal levels of other serum enzymes (4) Biventricular CHF (congestive heart failure) Current visit: Yes Status: Acute Category: Medical Code(s): I50.82 - Biventricular heart failure (5) Tobacco use Current visit: Yes Status: Acute Category: Social Hx Code(s): Z72.0 - Tobacco use (6) Automatic implantable cardiac defibrillator in situ Current visit: No Status: Chronic Category: Medical Code(s): Z95.810 - Presence of automatic (implantable) cardiac defibrillator (7) CAD (coronary artery disease) Current visit: No Status: Chronic Qualifiers: Coronary Disease-Associated Artery/Lesion type: [place] artery [place] vs. transplanted heart: [place] heart Associated angina: with unstable angina Qualified Code(s): I25.110 - Atherosclerotic heart disease of [place] coronary artery with unstable angina pectoris Category: Medical Code(s): I25.10 - Atherosclerotic heart disease of [place] coronary artery without angina pectoris (8) Stented coronary artery Current visit: No Status: Chronic Category: Surgical Code(s): Z95.5 - Presence of coronary angioplasty implant and graft (9) Cardiac arrhythmia Current visit: Yes Status: Acute Qualifiers: Arrhythmia type: ventricular tachycardia Qualified Code(s): I47.2 - Ventricular tachycardia Category: Medical Code(s): I49.9 - Cardiac arrhythmia, unspecified
[2017-12-13 06:04] LABS: Eosinophils % 0.2 % (0.1-12.0); Hematocrit 34.5 % (42.0-52.0); Hemoglobin 10.1 g/dL (14.1-18.0); Lymphocytes # 0.3 K/mm3 (0.7-4.5); Lymphocytes % 4.6 K/mm3 (10-50); Mean Corpuscular HGB Conc 29.3 g/dL (31.8-35.4); Mean Corpuscular Hemoglobin 25.2 pg (27.0-31.2); Mean Corpuscular Volume 85.9 fl (80-94); Mean Platelet Volume 7.8 fl (7.4-10.4); Monocytes # 0.2 K/mm3 (0.1-1.0); Monocytes % 2.6 % (1.7-9.3); Neutrophils # 6.4 K/mm3 (1.8-7.8); Neutrophils % 92.6 % (37.0-80.0); Platelet Count 230 K/mm3 (142-424); Red Blood Count 4.01 M/mm3 (4.60-6.20); White Blood Count 6.9 K/mm3 (4.8-10.8)
[2017-12-13 06:08] LABS: Albumin Level 2.1 gm/dL (3.4-5.0); Albumin/Globulin Ratio 0.6 (1.1-1.8); Bilirubin,Total 0.2 mg/dL (0.2-1.0); Calcium 7.7 mg/dL (8.5-10.1); Globulin 3.5 gm/dl (1.3-3.2); Potassium 4.4 mmoL/L (3.5-5.1); Total Protein,Serum 5.6 gm/dL (6.4-8.2)
[2017-12-13 06:13] LABS: Anion Gap 2.4 mEq/L (5-15)
--- NOTE | 2017-12-13 08:31 | Progress Note ---
Internal Medicine - PN: Subj *Date: 12/13/17 *Time: 08:29 Interval history: felt more sob this am and has proteus on culture - slow but steady improvement labs ok - discussed v tach with card Exam Vital signs and Labs for Last 24 Hours: Temp Pulse Resp BP Pulse Ox 97.7 F 64 22 116/65 96 12/13/17 04:00 12/13/17 06:12 12/13/17 04:00 12/13/17 04:00 12/13/17 06:12 Laboratory Results - last 24 hr 12/12/17 08:07: Troponin I 0.03 12/13/17 05:10: WBC 6.9 D, RBC 4.01 L, Hgb 10.1 L, Hct 34.5 L, MCV 85.9, MCH 25.2 L, MCHC 29.3 L, RDW 16.0, Plt Count 230, MPV 7.8, Neut % (Auto) 92.6 H, Lymph % (Auto) 4.6 L, [place] % (Auto) 2.6, Eos % (Auto) 0.2, Baso % (Auto) 0.0 L, Neut # (Auto) 6.4, Lymph # (Auto) 0.3 L, [place] # (Auto) 0.2, Eos # (Auto) 0.0, Baso # (Auto) 0.0 12/13/17 05:10: Sodium 144, Potassium 4.4, Chloride 107, Carbon Dioxide 39 H, Anion Gap 2.4 L, BUN 42 H, Creatinine 0.67 L, Estimated Creat Clear 61, Estimated GFR 115, Est GFR ( Amer) 140, Glucose 133 H, Calcium 7.7 L, Total Bilirubin 0.2, AST 8 L, ALT 26, Alkaline Phosphatase 61, Total Protein 5.6 L, Albumin 2.1 L, Globulin 3.5 H, Albumin/Globulin Ratio 0.6 L I & O for Last 24 hours: Intake & Output 12/10/17 12/11/17 12/12/17 12/13/17 11:59 11:59 11:59 11:59 Intake Total 300 / 300 1695 / 1695 1892 / 1892 1232 / 1232 Output Total 200 / 200 675 / 675 1725 / 1725 1175 / 1175 Balance 100 / 100 1020 / 1020 167 / 167 57 / 57 Weight 142 lb 9 oz 141 lb 7 oz 147 lb 6 oz 150 lb 6 oz Microbiology Reports for the Last 24 Hours: Microbiology 12/10/17 13:55 Sputum - Expectorated Sputum Gram Stain - Final 12/10/17 13:55 Sputum - Expectorated Sputum Sputum Culture - Final Proteus penneri 12/10/17 08:15 Blood Blood Culture - Preliminary NO GROWTH AFTER 48 HOURS 12/10/17 08:15 Blood Blood Culture - Preliminary NO GROWTH AFTER 48 HOURS - Constitutional no acute distress - *Routine HEENT Exam Head: Present: normocephalic Eye: Present: EOMI, PERRL ENT: Present: mucous membranes dry - *Routine Neck Exam Present: supple. Absent: JVD - *Routine Respiratory Exam Present: decreased breath sounds, prolonged expiratory phase, wheezes - *Routine Cardiovascular Exam Present: RRR, murmur, S4 - *Routine Abdominal Exam Present: soft - *Routine Extremities Exam Absent: calf tenderness - *Routine Skin Exam Present: intact - *Routine Neurological Exam Present: alert, oriented X3, CN II-XII intact - Routine Psychiatric Exam Present: normal affect Assessment and Plan (1) Acute exacerbation of chronic obstructive airways disease Current visit: Yes Status: Acute Category: Medical Code(s): J44.1 - Chronic obstructive pulmonary disease with (acute) exacerbation (2) Community acquired pneumonia Current visit: Yes Status: Acute Qualifiers: Laterality: unspecified laterality Qualified Code(s): J18.9 - Pneumonia, unspecified organism Category: Medical Code(s): J18.9 - Pneumonia, unspecified organism (3) Elevated troponin Current visit: Yes Status: Acute Category: Medical Code(s): R74.8 - Abnormal levels of other serum enzymes (4) Biventricular CHF (congestive heart failure) Current visit: Yes Status: Acute Category: Medical Code(s): I50.82 - Biventricular heart failure (5) Tobacco use Current visit: Yes Status: Acute Category: Social Hx Code(s): Z72.0 - Tobacco use (6) Automatic implantable cardiac defibrillator in situ Current visit: No Status: Chronic Category: Medical Code(s): Z95.810 - Presence of automatic (implantable) cardiac defibrillator (7) CAD (coronary artery disease) Current visit: No Status: Chronic Qualifiers: Coronary Disease-Associated Artery/Lesion type: [place] artery [place] vs. transplanted heart: [place] heart Associated angina: with unstable angina Qualified Code(s): I25.110 - Atherosclerotic heart disease of [place] coronary artery with unstable angina pectoris Category: Medical Code(s): I25.10 - Atherosclerotic heart disease of [place] coronary artery without angina pectoris (8) Stented coronary artery Current visit: No Status: Chronic Category: Surgical Code(s): Z95.5 - Presence of coronary angioplasty implant and graft (9) Cardiac arrhythmia Current visit: Yes Status: Acute Qualifiers: Arrhythmia type: ventricular tachycardia Qualified Code(s): I47.2 - Ventricular tachycardia Category: Medical Code(s): I49.9 - Cardiac arrhythmia, unspecified (10) Proteus pneumonia Current visit: Yes Status: Acute Category: Medical Code(s): J15.6 - Pneumonia due to other Gram-negative bacteria
--- NOTE | 2017-12-13 08:47 | Progress Note ---
Subjective Date: 12/13/17 Time: 08:42 Principal diagnosis: Pneumonia, elevated troponin Interval history: 77 yo WM in chair in NAD. Still with SOA and cough. No chest pains. Telemetry over the weekend shows non-sustained V. tach up to 18 beats at about 150 bpm. AICD in situ. Exam Vital signs and Labs for Last 24 Hours: Temp Pulse Resp BP Pulse Ox 97.7 F 64 22 116/65 96 12/13/17 04:00 12/13/17 06:12 12/13/17 04:00 12/13/17 04:00 12/13/17 06:12 Laboratory Results - last 24 hr 12/13/17 05:10: WBC 6.9 D, RBC 4.01 L, Hgb 10.1 L, Hct 34.5 L, MCV 85.9, MCH 25.2 L, MCHC 29.3 L, RDW 16.0, Plt Count 230, MPV 7.8, Neut % (Auto) 92.6 H, Lymph % (Auto) 4.6 L, [place] % (Auto) 2.6, Eos % (Auto) 0.2, Baso % (Auto) 0.0 L, Neut # (Auto) 6.4, Lymph # (Auto) 0.3 L, [place] # (Auto) 0.2, Eos # (Auto) 0.0, Baso # (Auto) 0.0 12/13/17 05:10: Sodium 144, Potassium 4.4, Chloride 107, Carbon Dioxide 39 H, Anion Gap 2.4 L, BUN 42 H, Creatinine 0.67 L, Estimated Creat Clear 61, Estimated GFR 115, Est GFR ( Amer) 140, Glucose 133 H, Calcium 7.7 L, Total Bilirubin 0.2, AST 8 L, ALT 26, Alkaline Phosphatase 61, Total Protein 5.6 L, Albumin 2.1 L, Globulin 3.5 H, Albumin/Globulin Ratio 0.6 L I & O for Last 24 hours: Intake & Output 12/10/17 12/11/17 12/12/17 12/13/17 11:59 11:59 11:59 11:59 Intake Total 300 / 300 1695 / 1695 1892 / 1892 1232 / 1232 Output Total 200 / 200 675 / 675 1725 / 1725 1175 / 1175 Balance 100 / 100 1020 / 1020 167 / 167 57 / 57 Weight 142 lb 9 oz 141 lb 7 oz 147 lb 6 oz 150 lb 6 oz Microbiology Reports for the Last 24 Hours: Microbiology 12/10/17 13:55 Sputum - Expectorated Sputum Gram Stain - Final 12/10/17 13:55 Sputum - Expectorated Sputum Sputum Culture - Final Proteus penneri 12/10/17 08:15 Blood Blood Culture - Preliminary NO GROWTH AFTER 48 HOURS 12/10/17 08:15 Blood Blood Culture - Preliminary NO GROWTH AFTER 48 HOURS - *Routine Respiratory Exam Present: decreased breath sounds, rhonchi, wheezes, diminished air movement. Absent: accessory muscle use, rales - *Routine Cardiovascular Exam Present: RRR. Absent: murmur, gallop, rubs - *Routine Neurological Exam Present: alert, oriented X3, moving all extremities Progress Note: A&P (1) Acute exacerbation of chronic obstructive airways disease Status: Acute Current Visit: Yes (2) Community acquired pneumonia Status: Acute Current Visit: Yes (3) Elevated troponin Status: Acute Current Visit: Yes (4) Biventricular CHF (congestive heart failure) Status: Acute Current Visit: Yes (5) Tobacco use Status: Acute Current Visit: Yes (6) Automatic implantable cardiac defibrillator in situ Status: Chronic Current Visit: No (7) CAD (coronary artery disease) Status: Chronic Current Visit: No (8) Stented coronary artery Status: Chronic Current Visit: No (9) Cardiac arrhythmia Status: Acute Current Visit: Yes (10) Proteus pneumonia Status: Acute Current Visit: Yes Assessment and Plan for All Diagnoses:: Pulmonary issues on top of severe LV dysfunction likely the cause for the NSVTach. Will try to increase beta miquel but will need to continue monitor for worsening pulmonary status.
[2017-12-13 09:00] LABS: ABG Base Excess 11.3 mmol/L (-2.4-2.3); ABG HCO3 36.3 mmhg (22.0-26.0); ABG Oxygen Saturation 95 % (90-100); ABG PH 7.39 mmol/L (7.35-7.45); ABG PO2 79.5 mmhg (80-100); ABG TCO2 38.2 mmhg (23-27)
[2017-12-13 09:01] LABS: Oxygen 3 LPM %
[2017-12-13 09:02] LABS: ABG PCO2 61.5 mmhg (35.0-45.0)
[2017-12-13 09:25] LABS: Lymphocytes % 4 % (10-50); Neutrophils % 96 % (42-76); Total Cells Counted 100
[2017-12-13 09:26] LABS: Hypochromasia 2+
--- NOTE | 2017-12-14 07:24 | Progress Note ---
Subjective Date: 12/14/17 Time: 07:20 Principal diagnosis: Pneumonia, elevated troponin Interval history: 77-year-old white male in bed sleeping initially in no acute distress. Upon waking the patient seems to be breathing comfortably and denies chest pain. IV fluids discontinued yesterday with a single dose of IV Lasix administered due to weight gain noted on vitals. Review of telemetry reveals a single 5 beat run of V. tach overnight. AICD is in place. Exam Vital signs and Labs for Last 24 Hours: Temp Pulse Resp BP Pulse Ox 97.6 F 52 L 20 97/39 96 12/14/17 04:00 12/14/17 05:01 12/14/17 04:00 12/14/17 04:00 12/14/17 04:00 Laboratory Results - last 24 hr 12/13/17 05:10: Total Counted 100, Neutrophils % (Manual) 96 H, Lymphocytes % (Manual) 4 L, Platelet Estimate Normal, Hypochromasia 2+ 12/13/17 08:24: Specimen Source L. brachial, O2 % 3 lpm, ABG pH 7.39, ABG pCO2 61.5 H, ABG pO2 79.5 L, ABG HCO3 36.3 H, ABG Total CO2 38.2 H, ABG O2 Saturation 95, ABG Base Excess 11.3 H, Dustin Test N/a I & O for Last 24 hours: Intake & Output 12/11/17 12/12/17 12/13/17 12/14/17 11:59 11:59 11:59 11:59 Intake Total 1695 / 1695 1892 / 1892 1472 / 1472 120 / 120 Output Total 675 / 675 1725 / 1725 1177 / 1177 400 / 400 Balance 1020 / 1020 167 / 167 295 / 295 -280 / -280 Weight 141 lb 7 oz 147 lb 6 oz 150 lb 6 oz 152 lb 9 oz Microbiology Reports for the Last 24 Hours: Microbiology 12/10/17 13:55 Sputum - Expectorated Sputum Gram Stain - Final 12/10/17 13:55 Sputum - Expectorated Sputum Sputum Culture - Final Proteus penneri - *Routine Neck Exam Present: supple. Absent: JVD, carotid bruit - *Routine Respiratory Exam Present: decreased breath sounds, wheezes. Absent: accessory muscle use, rales, rhonchi Comments: Chest sounds have improved overnight with less rhonchi and wheezing bilaterally. - *Routine Cardiovascular Exam Present: RRR. Absent: murmur, gallop, rubs - *Routine Extremities Exam Absent: edema, calf tenderness Progress Note: A&P (1) Acute exacerbation of chronic obstructive airways disease Status: Acute Current Visit: Yes (2) Community acquired pneumonia Status: Acute Current Visit: Yes (3) Elevated troponin Status: Acute Current Visit: Yes (4) Biventricular CHF (congestive heart failure) Status: Acute Current Visit: Yes (5) Tobacco use Status: Acute Current Visit: Yes (6) Automatic implantable cardiac defibrillator in situ Status: Chronic Current Visit: No (7) CAD (coronary artery disease) Status: Chronic Current Visit: No (8) Stented coronary artery Status: Chronic Current Visit: No (9) Cardiac arrhythmia Status: Acute Current Visit: Yes (10) Proteus pneumonia Status: Acute Current Visit: Yes Assessment and Plan for All Diagnoses:: Continue current medical therapy of aspirin 81 mg daily, Plavix 75 mg daily, furosemide 40 mg daily, metoprolol 25 mg 3 times daily, digoxin 0.125 mg daily and Entresto 24/26 mg twice daily. Patient could be discharged home from cardiology standpoint. Pulmonary issues continue to be treated per Dr. Atkinson. Patient should follow-up in our office in 1 to 2 weeks.
--- NOTE | 2017-12-14 08:10 | Discharge Summary ---
General - General Admission date:: 12/10/17 Discharge date: 12/14/17 HPI HPI: 77 yr old male brought in by EMS complaining of shortness of air. Patient states his been out of his breathing treatments at home and his breathing has gotten worse over the last 2 days. EMS reported to the ER stating he smoked a lot of cigarettes and he keeps coughing. EMS states they arrived on scene patient was tripoding and in severe respiratory distress. Per ER note in the ER patient was placed on BiPAP. Patient admitted for respiratory failure for further workup. And cardiology consult. Hospital Course Hospital Course: pt with slow but steady improvement with ivf and abx with pul treatment and steroids for copd and cap with some element of chf - he was seen by card and had episode of v tach which inc beta miquel helped and he has aicd- pt ambulation is good and diet good and on baseline o2- labs stable and will see in 1 week in office Objective Vital signs: Temp Pulse Resp BP Pulse Ox 97.3 F L 66 16 130/66 96 12/14/17 08:00 12/14/17 08:00 12/14/17 08:00 12/14/17 08:00 12/14/17 08:00 no acute distress - *Routine HEENT Exam Head: Present: normocephalic Eye: Present: EOMI, PERRL ENT: Present: mucous membranes dry - *Routine Neck Exam Absent: JVD - *Routine Respiratory Exam Present: wheezes, distant breath sounds - *Routine Cardiovascular Exam Present: RRR, murmur, S4 - *Routine Abdominal Exam Present: soft - *Routine Extremities Exam Absent: calf tenderness - *Routine Skin Exam Present: intact - *Routine Neurological Exam Present: alert, oriented X3, CN II-XII intact - Routine Psychiatric Exam Present: normal affect Results Labs on day of discharge: Labs from last 24 hours 12/13/17 12/13/17 08:24 05:10 Total Counted 100 Neutrophils % (Manual) 96 H Lymphocytes % (Manual) 4 L Platelet Estimate Normal Hypochromasia 2+ Specimen Source L. brachial O2 % 3 lpm ABG pH 7.39 ABG pCO2 61.5 H ABG pO2 79.5 L ABG HCO3 36.3 H ABG Total CO2 38.2 H ABG O2 Saturation 95 ABG Base Excess 11.3 H Dustin Test N/a Preliminary micro results at discharge 12/10/17 08:15 Blood Culture - Preliminary Blood NO GROWTH AFTER 48 HOURS 12/10/17 08:15 Blood Culture - Preliminary Blood NO GROWTH AFTER 48 HOURS DS: Diagnosis - Discharge Diagnosis (1) Acute exacerbation of chronic obstructive airways disease Status: Acute (2) Community acquired pneumonia Status: Acute (3) Elevated troponin Status: Acute (4) Biventricular CHF (congestive heart failure) Status: Acute (5) Tobacco use Status: Acute (6) Automatic implantable cardiac defibrillator in situ Status: Chronic (7) CAD (coronary artery disease) Status: Chronic (8) Stented coronary artery Status: Chronic (9) Cardiac arrhythmia Status: Acute (10) Proteus pneumonia Status: Acute Discharge Plan - Patient Discharge Instructions ACTIVITY: Continue current activity DIET: continue same diet Patient Instructions: Low-Sodium Diet - Follow up Plan Disposition: Home, Self-Senior Living Medications: Home Medications Medication Instructions Recorded Confirmed Type furosemide 40 mg tablet 40 mg PO DAILY tab 06/11/17 12/10/17 History Aspirin [Aspirin 81mg EC Tab] 81 mg PO DAILY 08/26/17 12/10/17 History Metoprolol Tartrate [Lopressor 12.5 mg PO BID 08/26/17 12/10/17 History 25mg tablet] Prescriptions/Medication Reconciliation: New Metoprolol Tartrate [Lopressor 25mg tablet] 25 mg PO TID #90 tablet Nicotine [Nicoderm 21mg/24hr patch] 21 mg TD DAILYP PRN #30 patch.td24 PRN Reason: Nicotine Cravings Clopidogrel Bisulfate [Plavix 75mg Tab] 75 mg PO DAILY tablet Sacubitril/Valsartan [Entresto 24/26mg Tablet] 1 each PO BID tablet Continue furosemide 40 mg tablet 40 mg PO DAILY tab tamsulosin 0.4 mg capsule 0.4 mg PO DAILY #90 cap Digoxin 125 mcg PO DAILY #30 tablet Aspirin [Aspirin 81mg EC Tab] 81 mg PO DAILY Discontinued carvedilol 3.125 mg tablet 3.125 mg PO DAILY #90 tab Metoprolol Tartrate [Lopressor 25mg tablet] 12.5 mg PO BID
--- NOTE | 2017-12-14 08:18 | Progress Note ---
Internal Medicine - PN: Subj *Date: 12/14/17 *Time: 08:18 Exam Vital signs and Labs for Last 24 Hours: Temp Pulse Resp BP Pulse Ox 97.3 F L 66 16 130/66 96 12/14/17 08:00 12/14/17 08:00 12/14/17 08:00 12/14/17 08:00 12/14/17 08:00 Laboratory Results - last 24 hr 12/13/17 05:10: Total Counted 100, Neutrophils % (Manual) 96 H, Lymphocytes % (Manual) 4 L, Platelet Estimate Normal, Hypochromasia 2+ 12/13/17 08:24: Specimen Source L. brachial, O2 % 3 lpm, ABG pH 7.39, ABG pCO2 61.5 H, ABG pO2 79.5 L, ABG HCO3 36.3 H, ABG Total CO2 38.2 H, ABG O2 Saturation 95, ABG Base Excess 11.3 H, Dustin Test N/a I & O for Last 24 hours: Intake & Output 12/11/17 12/12/17 12/13/17 12/14/17 23:59 23:59 23:59 23:59 Intake Total 2778 / 2778 1232 / 1232 240 / 240 120 / 120 Output Total 1375 / 1375 1775 / 1775 2 / 2 400 / 400 Balance 1403 / 1403 -543 / -543 238 / 238 -280 / -280 Weight 64.155 kg 66.848 kg 68.209 kg 69.201 kg Microbiology Reports for the Last 24 Hours: Microbiology 12/10/17 13:55 Sputum - Expectorated Sputum Gram Stain - Final 12/10/17 13:55 Sputum - Expectorated Sputum Sputum Culture - Final Proteus penneri Assessment and Plan (1) Acute exacerbation of chronic obstructive airways disease Current visit: Yes Status: Acute Category: Medical Code(s): J44.1 - Chronic obstructive pulmonary disease with (acute) exacerbation (2) Community acquired pneumonia Current visit: Yes Status: Acute Qualifiers: Laterality: unspecified laterality Qualified Code(s): J18.9 - Pneumonia, unspecified organism Category: Medical Code(s): J18.9 - Pneumonia, unspecified organism (3) Elevated troponin Current visit: Yes Status: Acute Category: Medical Code(s): R74.8 - Abnormal levels of other serum enzymes (4) Biventricular CHF (congestive heart failure) Current visit: Yes Status: Acute Category: Medical Code(s): I50.82 - Biventricular heart failure (5) Tobacco use Current visit: Yes Status: Acute Category: Social Hx Code(s): Z72.0 - Tobacco use (6) Automatic implantable cardiac defibrillator in situ Current visit: No Status: Chronic Category: Medical Code(s): Z95.810 - Presence of automatic (implantable) cardiac defibrillator (7) CAD (coronary artery disease) Current visit: No Status: Chronic Qualifiers: Coronary Disease-Associated Artery/Lesion type: [place] artery [place] vs. transplanted heart: [place] heart Associated angina: with unstable angina Qualified Code(s): I25.110 - Atherosclerotic heart disease of [place] coronary artery with unstable angina pectoris Category: Medical Code(s): I25.10 - Atherosclerotic heart disease of [place] coronary artery without angina pectoris (8) Stented coronary artery Current visit: No Status: Chronic Category: Surgical Code(s): Z95.5 - Presence of coronary angioplasty implant and graft (9) Cardiac arrhythmia Current visit: Yes Status: Acute Qualifiers: Arrhythmia type: ventricular tachycardia Qualified Code(s): I47.2 - Ventricular tachycardia Category: Medical Code(s): I49.9 - Cardiac arrhythmia, unspecified (10) Proteus pneumonia Current visit: Yes Status: Acute Category: Medical Code(s): J15.6 - Pneumonia due to other Gram-negative bacteria The patient's infection will respond to the chosen ABx?: Yes Is the patient receiving the right drug, dose, and route?: Yes Could a more targeted ABx be ordered?: No
== END 2017-12-14 10:48 | disposition home or self-care (01) ==
LOC: ER 23:44 → 2ND 12-10 04:59
PROVIDERS: ADMIT Emergency Medicine; ATTEND Emergency Medicine
CPT/HCPCS: 36415; 71010; 71020; 71045; 71046; 80048; 80053; 82803; 83605; 83735; 84484; 85007; 85025; 87040; 87070; 87077; 87186; 87205; 93005; 93306; 94640; 94660; 94761; 96365; 96367; 96375; 99285; J0456; J2405

== ENCOUNTER 2017-12-22 14:45 | Inpatient (IN) ==
--- NOTE | 2017-12-22 15:35 | Emergency Department Note ---
ED Disposition Clinical Impression: COPD exacerbation Pulmonary embolism Qualifiers: Pulmonary embolism type: other Chronicity: acute Acute cor pulmonale presence: with acute cor pulmonale Qualified Code(s): I26.09 - Other pulmonary embolism with acute cor pulmonale Disposition: Admitted as Observation Condition on Discharge: Fair Additional Instructions: I discussed this patient with Dr. Atkinson and he is putting him in the emergency in the hospital for an observation and possible repeat CT angiogram of the chest tomorrow Referrals: Patito Bailey PA [Primary Care Provider] - Time of Disposition: 18:59 - Critical Care Critical Care Time: No Attestation: On 12/22/17, the high probability of a clinically significant, sudden or life threatening deterioration of the following system(s) required my full and direct attention, intervention and personal management. The time I documented below is in addition to time spent performing reported procedures but includes the following listed in this critical care notation. Medical Decision Making - Medical Records Medical records reviewed: Yes: I reviewed the patient's medical records. - Juan Inquiry Pt receiving controlled substance: No Juan was queried for this patient: No Vital Signs: 12/22/17 14:49 12/22/17 16:01 12/22/17 16:30 Temperature 98.3 F Temperature Source Oral Pulse Rate Pulse Rate [Right Brachial] 76 76 82 Respiratory Rate 22 18 18 Blood Pressure [Right Arm] 121/73 128/64 128/64 Blood Pressure Mean [Right Arm] 89 85 85 Blood Pressure Source [Right Arm] Automatic Cuff Automatic Cuff Automatic Cuff Blood Pressure Position [Right Arm] Supine Supine Supine 02 Sat by Pulse Oximetry 97 93 L 93 L Oxygen Delivery Method Nasal Cannula Nasal Cannula Nasal Cannula Oxygen Flow Rate (LPM) 2 2 2 12/22/17 16:59 12/22/17 18:08 Temperature Temperature Source Pulse Rate 74 Pulse Rate [Right Brachial] 78 Respiratory Rate 20 Blood Pressure [Right Arm] 122/58 Blood Pressure Mean [Right Arm] 79 Blood Pressure Source [Right Arm] Automatic Cuff Blood Pressure Position [Right Arm] Sitting 02 Sat by Pulse Oximetry 96 Oxygen Delivery Method Nasal Cannula Oxygen Flow Rate (LPM) - Lab Data Lab results reviewed: Yes: I reviewed the patient's lab results. Lab Results 12/22/17 15:38: VBG pH 7.35, VBG pCO2 68.1 H, VBG pO2 39.3, VBG HCO3 36.4 H, VBG Total CO2 38.5 H, VBG O2 Saturation 70.6 H, VBG Base Excess 10.7 H 12/22/17 16:00: WBC 15.2 H, RBC 3.90 L, Hgb 10.0 L, Hct 33.5 L, MCV 86.0, MCH 25.6 L, MCHC 29.8 L, RDW 17.4, Plt Count 389, MPV 7.2 L, Neut % (Auto) 92.2 H, Lymph % (Auto) 4.8 L, [place] % (Auto) 2.4, Eos % (Auto) 0.4, Baso % (Auto) 0.2, Neut # (Auto) 14.0 H, Lymph # (Auto) 0.7, [place] # (Auto) 0.4, Eos # (Auto) 0.1, Baso # (Auto) 0.0, Total Counted 100, Neutrophils % (Manual) 85 H, Lymphocytes % (Manual) 10, Monocytes % (Manual) 5, Platelet Estimate Normal, Hypochromasia 2+ 12/22/17 16:00: D-Dimer 1030 H* 12/22/17 16:00: Sodium 147 H, Potassium 4.9, Chloride 105, Carbon Dioxide 44 H*, Anion Gap 2.9 L, BUN 32 H, Creatinine 0.54 L, Estimated Creat Clear 62, Estimated GFR 148, Est GFR ( Amer) 179, Glucose 79, Calcium 8.3 L, Total Creatine Kinase 94, CK-MB (CK-2) 3.5 D, CK-MB (CK-2) Rel Index 3.7, Troponin I 0.04 12/22/17 16:00: Lactate 1.3 12/22/17 16:00: B-Natriuretic Peptide 2130 H 12/22/17 16:00: Urine Color Yellow, Urine Appearance Clear, Urine pH 6.5, Ur Specific [place] 1.010, Urine Protein Negative, Urine Glucose (UA) Negative, Urine Ketones Negative, Urine Blood Negative, Urine Nitrate Negative, Urine Bi lirubin Negative, Urine Urobilinogen 0.2, Ur Leukocyte Esterase Negative, Urine RBC None, Urine WBC None, Ur Squamous Epith Cells Occasional, Urine Bacteria Trace Result diagrams: 12/22/17 16:00 12/22/17 16:00 Orders (Tests/Meds): ED MEDICATIONS Generic Name Dose Route Start Last Admin Trade Name Freq PRN Reason Stop Dose Admin Levofloxacin/Dextrose 500 mg in 100 mls @ 100 mls/hr 12/22/17 17:55 12/22/17 18:05 Levaquin 500mg/100ml Premix IV 12/22/17 18:54 100 mls/hr ONCE ONE Administration Protocol Discontinued Medications Generic Name Dose Route Start Last Admin Trade Name Freq PRN Reason Stop Dose Admin Albuterol/Ipratropium 3 ml 12/22/17 16:57 12/22/17 16:58 Duoneb 3ml Neb IH 12/22/17 16:58 3 ml ONCE ONE Administration Furosemide 40 mg 12/22/17 16:21 12/22/17 16:25 Lasix 40mg/4ml Vial IV 12/22/17 16:22 40 mg ONCE ONE Administration Iopamidol 75 ml 12/22/17 17:54 12/22/17 17:55 [id number]; 75ml Vial IV 12/22/17 17:55 75 ml ONCE ONE Administration Protocol Sodium Chloride 50 ml 12/22/17 17:54 12/22/17 17:56 Rad-Ns 50ml Vial IV 12/22/17 17:55 50 ml ONCE ONE Administration ORDERS Category Date Time Status UA [Urinalysis and Microscopic] Stat Lab 12/22/17 16:00 Ordered Blood Culture Stat Micro 12/22/17 16:03 Ordered - Radiology Data #1 Image(s): Chest Image Reviewed: Yes I reviewed the patient's radiology results Chest x-ray consistent with possible mild congestive heart failure and COPD - CT Data CT Scan: Chest Time Received: 18:[address] Reviewed: Yes: I have reviewed the patient's CT results, I have viewed the radiologist's interpretation Findings Narrative: CT cannot CT scan is suspicious for pulmonary embolus in the left lower lobe. Radiologist recommends repeat CT scan to get better contrast enhancement. Resp/SOB HPI - General Chief Complaint: Shortness of Breath/Dyspnea Stated Complaint: difficulty breathing Time Seen by Provider: 12/22/17 15:32 Mode of Arrival: EMS Limitations: No Limitations Description of Symptoms (Recalled from ER Triage Doc. by RN): weakness and difficulty breathing x 4 days. - History of Present Illness Patient is a 77-year-old white gentleman who was hospitalized here this past week for pneumonia and possibly congestive heart failure he was sent home on antibiotics prednisone and his regular medicines but comes back to the emergency room today with complaints of more swelling and more difficulty breathing he has not been running any fevers recently MD Complaint: shortness of breath, cough Onset (ago): day(s) Context: recent illness Severity: moderate Consistency/Duration: constant Relieving factors: nothing, oxygen, bronchodilators, medication - Related Data Home Medications Medication Instructions Recorded Confirmed furosemide 40 mg tablet 40 mg PO DAILY tab 06/11/17 12/22/17 Aspirin [Aspirin 81mg EC Tab] 81 mg PO DAILY 08/26/17 12/10/17 Aspirin [Aspirin 81mg EC Tab] 81 mg PO DAILY 12/22/17 12/22/17 Carvedilol [Carvedilol 3.125mg Tab] 3.125 mg PO DAILY 12/22/17 12/22/17 Fluticasone/Vilanterol [Breo 1 inh INHALATION DAILY 12/22/17 12/22/17 Ellipta] predniSONE [Deltasone 10mg tablet] See Rx Instructions PO DIRECTED 12/22/17 12/22/17 Previous Rx's Medication Instructions Recorded Digoxin 125 mcg PO DAILY #30 tablet 05/04/17 tamsulosin 0.4 mg capsule 0.4 mg PO DAILY #90 cap 10/25/17 Clopidogrel Bisulfate [Plavix 75mg 75 mg PO DAILY tablet 12/14/17 Tab] Nicotine [Nicoderm 21mg/24hr 21 mg TD DAILYP PRN #30 patch.td24 12/14/17 patch] Allergies Allergy/AdvReac Type Severity Reaction Status Date / Time morphine [MORPHINE] Allergy Unknown Verified 12/21/17 08:13 [facility] History I have reviewed the patient's past medical history: Yes Medical History: Reports:: Chronic Obstructive Pulmonary Disease (COPD), Coronary Artery Disease, Hyperlipidemia, Internal Pacemaker, Myocardial Infarction Denies:: Cancer, Diabetes Mellitus Type 1, Diabetes Mellitus Type 2, MRSA, Seizures Other Medical History: Denies: Blood Transfusion Reaction Other Surgeries: Yes: Appendectomy, CABG, Cardiac Catheterization, Coronary Stent, Open Heart Surgery, Pacemaker, Other Amputation: No Fractures: No - Social History Smoking Status: Former smoker Tobacco Type: cigarettes # Packs/Day (cigarettes): 1 #Yrs smoked (if former smoker): 30 Alcohol Intake: never Alcohol Intake Frequency:: other Substance Use Type: denies use Occupational Status: retired Housing: house Household Members: spouse - Psychiatric History Expresses thoughts of harming self/others: None Suicide Plan Description: No Plan Family Hx:: Unable to obtain ROS Obtained: Yes All systems reviewed & no additional complaints - Constitutional Constitutional: Reports system reviewed and no additional complaints, except as docu - Eyes Eyes: Reports system reviewed and no additional complaints, except as docu - ENT Ears, Nose, Mouth, and Throat: Reports system reviewed and no additional complaints, except as docu - Cardiovascular Cardiovascular: Reports system reviewed and no additional complaints, except as docu, Reports as per HPI - Respiratory Respiratory: Yes system reviewed and no additional complaints, except as docu, Yes as per HPI - Neurologic Neurologic: Reports system reviewed and no additional complaints, except as docu, Reports as per HPI Physical Exam - General General appearance: alert, in no apparent distress - Head Head exam: atraumatic - ENT ENT exam: Present: other (Very hard of hearing) - Respiratory Respiratory exam: Present: wheezes (Bilaterally) - Cardiovascular Cardiovascular exam: Present: irregular rhythm - Abdominal Exam Abdominal exam: Present: soft - Extremities Exam Extremities exam: Present: pedal edema - Neurological Exam Neurological exam: Present: alert, oriented X3 (But very hard of hearing)
[2017-12-22 16:08] LABS: VBG Base Excess 10.7 mmol/L (-2.4-2.3); VBG HCO3 36.4 mmol/L (23-30); VBG Oxygen Saturation 70.6 % (50-70); VBG PCO2 68.1 mmol/L (35-51); VBG PH 7.35 mmol/L (7.31-7.41); VBG PO2 39.3 mmol/L (28-40); VBG Total CO2 38.5 mmol/L (23-27)
[2017-12-22 16:14] LABS: Microscopic, Urine URINE MICROSCOPIC (MICROSCOPIC)
[2017-12-22 16:15] LABS: Appearance,Urine CLEAR (Clear); Bilirubin,Urine Negative (Negative); Blood, Urine Negative (Negative); Color,Urine YELLOW (Yellow); Glucose,Urine (UA) Negative (Negative); Ketones,Urine Negative (Negative); Leukocyte Esterase,Urine Negative (Negative); PH,Urine 6.5 (5.0-8.5); Protein,Urine Negative (Negative); Urobilinogen,Urine 0.2 EU/dl (0.2)
[2017-12-22 16:17] LABS: Basophils % 0.2 % (0.1-2.0); Eosinophils # 0.1 K/mm3 (0.0-0.4); Eosinophils % 0.4 % (0.1-12.0); Hematocrit 33.5 % (42.0-52.0); Lymphocytes # 0.7 K/mm3 (0.7-4.5); Lymphocytes % 4.8 K/mm3 (10-50); Mean Corpuscular HGB Conc 29.8 g/dL (31.8-35.4); Mean Corpuscular Hemoglobin 25.6 pg (27.0-31.2); Mean Platelet Volume 7.2 fl (7.4-10.4); Monocytes # 0.4 K/mm3 (0.1-1.0); Monocytes % 2.4 % (1.7-9.3); Neutrophils % 92.2 % (37.0-80.0); Platelet Count 389 K/mm3 (142-424); Red Cell Distribution Width 17.4 % (11.5-17.5); White Blood Count 15.2 K/mm3 (4.8-10.8)
[2017-12-22 16:31] LABS: Bacteria,Urine Trace /lpf; Squamous Epithelial Cell,Urine Occasional #/hpf (0-5)
[2017-12-22 16:48] LABS: Lymphocytes % 10 % (10-50); Monocytes % 5 % (2-9); Neutrophils % 85 % (42-76); Total Cells Counted 100
[2017-12-22 16:49] LABS: Hypochromasia 2+
[2017-12-22 16:57] LABS: Anion Gap 2.9 mEq/L (5-15); Calcium 8.3 mg/dL (8.5-10.1)
[2017-12-22 17:01] LABS: Potassium 4.9 mmoL/L (3.5-5.1)
[2017-12-22 19:08] LABS: ABG Base Excess 10.3 mmol/L (-2.4-2.3); ABG HCO3 34.7 mmhg (22.0-26.0); ABG Oxygen Saturation 95 % (90-100); ABG PH 7.42 mmol/L (7.35-7.45); ABG PO2 74.3 mmhg (80-100); ABG TCO2 36.4 mmhg (23-27)
[2017-12-22 19:10] LABS: Allen's Test Acceptable; Oxygen 28% %
[2017-12-22 19:11] LABS: ABG PCO2 54.8 mmhg (35.0-45.0)
[2017-12-23 06:42] LABS: White Blood Count 8.8 K/mm3 (4.8-10.8)
[2017-12-23 06:55] LABS: Eosinophils % 0.1 % (0.1-12.0); Hematocrit 29.4 % (42.0-52.0); INR 0.97 (0.9-1.1); Lymphocytes # 0.4 K/mm3 (0.7-4.5); Lymphocytes % 4.4 K/mm3 (10-50); Mean Corpuscular HGB Conc 30.3 g/dL (31.8-35.4); Mean Corpuscular Hemoglobin 25.7 pg (27.0-31.2); Mean Corpuscular Volume 84.9 fl (80-94); Mean Platelet Volume 7.2 fl (7.4-10.4); Monocytes # 0.2 K/mm3 (0.1-1.0); Monocytes % 1.8 % (1.7-9.3); Neutrophils # 8.2 K/mm3 (1.8-7.8); Neutrophils % 93.8 % (37.0-80.0); Platelet Count 317 K/mm3 (142-424); Red Blood Count 3.47 M/mm3 (4.60-6.20); Red Cell Distribution Width 17.4 % (11.5-17.5)
[2017-12-23 07:06] LABS: Albumin Level 2.6 gm/dL (3.4-5.0); Albumin/Globulin Ratio 0.8 (1.1-1.8); Anion Gap 1.1 mEq/L (5-15); Bilirubin,Total 0.4 mg/dL (0.2-1.0); Calcium 7.9 mg/dL (8.5-10.1); Globulin 3.2 gm/dl (1.3-3.2); Potassium 4.1 mmoL/L (3.5-5.1); Total Protein,Serum 5.8 gm/dL (6.4-8.2)
--- NOTE | 2017-12-23 07:32 | Pharmacy Consult Notes ---
[facility] Pharmacy VTE Monitoring - Patient Demographics Admission date: 12/22/17 Report Date: 12/23/17 Time: 07:32 Allergies/Adverse Reactions: Patient Allergies morphine [MORPHINE] Allergy (Unknown, Verified 12/21/17 08:13) Height: 1.75 m Weight: 72.206 kg Patient Problems: Current Active Problems COPD exacerbation (Acute) Pulmonary embolism (Acute) - VTE Risk Labs: VTE Related Lab Results Hgb 10.0 g/dL (14.1-18.0) L 12/22/17 16:00 Hct 29.4 % (42.0-52.0) L 12/23/17 06:05 Plt Count 317 K/mm3 (142-424) 12/23/17 06:05 PT 10.0 seconds (9.4-11.8) 12/23/17 06:05 INR 0.97 (0.9-1.1) 12/23/17 06:05 BUN 30 mg/dL (7-18) H 12/23/17 06:05 Creatinine 0.59 mg/dL (0.70-1.30) L 12/23/17 06:05 Estimated Creat Clear 61 mL/min (0-300) 12/23/17 06:05 Was VTE Risk Assessment Performed: Yes VTE Risk Level: Low Risk - Prophylaxis VTE Prophylaxis Ordered?: Yes Types of VTE Prophylaxis: TEDS Knee High Location of Applied Device: Bilateral Lower Extremeties - VTE Diagnosis Confirmed Treatment or plan recommended: Continue Current Treatment
--- NOTE | 2017-12-23 09:27 | History & Physical Report ---
*Admission Date: 12/22/17 *Chief complaint: sob *History of present illness: 77-year-old male presents to the ED with complaints of increased shortness of breath and swelling. Patient was hospitalized recently for pneumonia was sent home on antibiotics and prednisone. Patient was admitted for poss pe,chf and copd. Patient states he was sent home yesterday when suddenly became short of breath and could not catch his breath and was brought into the ER. [facility] History I have reviewed the patient's past medical history: Yes Medical History: Reports:: Chronic Obstructive Pulmonary Disease (COPD), Coronary Artery Disease, Hyperlipidemia, Internal Pacemaker, Myocardial Infarction Denies:: Cancer, Diabetes Mellitus Type 1, Diabetes Mellitus Type 2, MRSA, Seizures Other Medical History: Denies: Blood Transfusion Reaction Other Surgeries: Yes: Appendectomy, CABG, Cardiac Catheterization, Coronary Stent, Open Heart Surgery, Pacemaker, Other Amputation: No Fractures: No - *Social History Educational Level: Attended Grade School Smoking Status: Former smoker Tobacco Type: cigarettes # Packs/Day (cigarettes): 1 #Yrs smoked (if former smoker): 30 Alcohol Intake: never Alcohol Intake Frequency:: other Substance Use Type: denies use Occupational Status: retired Housing: house Household Members: spouse - Psychiatric History Expresses thoughts of harming self/others: None Suicide Plan Description: No Plan *Family Hx:: Unable to obtain Review of Systems - Constitutional Reports weakness, Denies headache(s) - Eyes Denies change in vision - ENT Denies change in voice - *Cardiovascular Reports shortness of breath, Reports leg swelling, Reports shortness of breath when lying down, Denies chest pain at rest, Denies chest pain with activity - *Respiratory Reports shortness of breath, Reports shortness of breath with activity - *Gastrointestinal Denies nausea, Denies vomiting - *Genitourinary Denies painful urination - *Musculoskeletal Denies decreased muscle mass - Integumentary/Breasts Denies change in hair - *Neurologic Denies abnormal movements - Psychiatric Denies anxiety - Endocrine Denies flushing - Hematologic/Lymphatic Denies enlarged lymph nodes - Allergic/Immunologic Denies lip swelling Meds Home Medications Medication Instructions Recorded Confirmed Type furosemide 40 mg tablet 40 mg PO DAILY tab 06/11/17 12/22/17 History Aspirin [Aspirin 81mg EC Tab] 81 mg PO DAILY 08/26/17 12/22/17 History Carvedilol [Carvedilol 3.125mg Tab] 3.125 mg PO DAILY 12/22/17 12/22/17 History Fluticasone/Vilanterol [Breo 1 inh INHALATION DAILY 12/22/17 12/22/17 History Ellipta] predniSONE [Deltasone 10mg tablet] See Rx Instructions PO DIRECTED 12/22/17 12/22/17 History Allergies Allergy/AdvReac Type Severity Reaction Status Date / Time morphine [MORPHINE] Allergy Unknown Verified 12/21/17 08:13 Exam Vital signs and Labs for Last 24 Hours: Temp Pulse Resp BP Pulse Ox 97.8 F 72 24 148/74 94 L 12/23/17 08:00 12/23/17 09:10 12/23/17 08:00 12/23/17 08:00 12/23/17 08:00 Laboratory Results - last 24 hr 12/22/17 15:38: VBG pH 7.35, VBG pCO2 68.1 H, VBG pO2 39.3, VBG HCO3 36.4 H, VBG Total CO2 38.5 H, VBG O2 Saturation 70.6 H, VBG Base Excess 10.7 H 12/22/17 16:00: WBC 15.2 H, RBC 3.90 L, Hgb 10.0 L, Hct 33.5 L, MCV 86.0, MCH 25.6 L, MCHC 29.8 L, RDW 17.4, Plt Count 389, MPV 7.2 L, Neut % (Auto) 92.2 H, Lymph % (Auto) 4.8 L, [place] % (Auto) 2.4, Eos % (Auto) 0.4, Baso % (Auto) 0.2, Neut # (Auto) 14.0 H, Lymph # (Auto) 0.7, [place] # (Auto) 0.4, Eos # (Auto) 0.1, Baso # (Auto) 0.0, Total Counted 100, Neutrophils % (Manual) 85 H, Lymphocytes % (Manual) 10, Monocytes % (Manual) 5, Platelet Estimate Normal, Hypochromasia 2+ 12/22/17 16:00: D-Dimer 1030 H* 12/22/17 16:00: Sodium 147 H, Potassium 4.9, Chloride 105, Carbon Dioxide 44 H*, Anion Gap 2.9 L, BUN 32 H, Creatinine 0.54 L, Estimated Creat Clear 62, Estimated GFR 148, Est GFR ( Amer) 179, Glucose 79, Calcium 8.3 L, Total Creatine Kinase 94, CK-MB (CK-2) 3.5 D, CK-MB (CK-2) Rel Index 3.7, Troponin I 0.04 12/22/17 16:00: Lactate 1.3 12/22/17 16:00: B-Natriuretic Peptide 2130 H 12/22/17 16:00: Urine Color Yellow, Urine Appearance Clear, Urine pH 6.5, Ur Specific [place] 1.010, Urine Protein Negative, Urine Glucose (UA) Negative, Urine Ketones Negative, Urine Blood Negative, Urine Nitrate Negative, Urine Bilirubin Negative, Urine Urobilinogen 0.2, Ur Leukocyte Esterase Negative, Urine RBC None, Urine WBC None, Ur Squamous Epith Cells Occasional, Urine Bacteria Trace 12/22/17 19:04: Specimen Source Left radial, O2 % 28%, ABG pH 7.42, ABG pCO2 5 4.8 H, ABG pO2 74.3 L, ABG HCO3 34.7 H, ABG Total CO2 36.4 H, ABG O2 Saturation 95, ABG Base Excess 10.3 H, Dustin Test Acceptable 12/23/17 06:05: WBC 8.8 D, RBC 3.47 L, Hct 29.4 L, MCV 84.9, MCH 25.7 L, MCHC 30.3 L, RDW 17.4, Plt Count 317, MPV 7.2 L, Neut % (Auto) 93.8 H, Lymph % (Auto) 4.4 L, [place] % (Auto) 1.8, Eos % (Auto) 0.1, Baso % (Auto) 0.0 L, Neut # (Auto) 8.2 H, Lymph # (Auto) 0.4 L, [place] # (Auto) 0.2, Eos # (Auto) 0.0, Baso # (Auto) 0.0 12/23/17 06:05: PT 10.0, INR 0.97 12/23/17 06:05: Sodium 143, Potassium 4.1, Chloride 104, Carbon Dioxide 42 H*, Anion Gap 1.1 L, BUN 30 H, Creatinine 0.59 L, Estimated Creat Clear 61, Estimated GFR 134, Est GFR ( Amer) 162, Glucose 152 H D, Calcium 7.9 L, Magnesium 2.2, Total Bilirubin 0.4, AST 10 L, ALT 30, Alkaline Phosphatase 62, Total Protein 5.8 L, Albumin 2.6 L, Globulin 3.2, Albumin/Globulin Ratio 0.8 L I & O for Last 24 hours: Intake & Output 12/20/17 12/21/17 12/22/17 12/23/17 11:59 11:59 11:59 11:59 Intake Total 485 / 485 Output Total 650 / 650 Balance -165 / -165 Weight 159 lb 3 oz - *Routine HEENT Exam Head: Present: normocephalic Eye: Present: PERRL ENT: Present: mucous membranes moist - *Routine Neck Exam Present: supple. Absent: lymphadenopathy - *Routine Respiratory Exam Present: wheezes, diminished air movement - *Routine Cardiovascular Exam Present: RRR - *Routine Abdominal Exam Present: soft, normoactive bowel sounds. Absent: tenderness - *Routine Extremities Exam Absent: cyanosis, clubbing, edema - *Routine Skin Exam Present: warm. Absent: rash - *Routine Neurological Exam Present: alert, oriented X3 Assessment and Plan - Assessment and plan all Dx Assessment and Plan for all problems:: ct to r/o pe cardiology consult Start antibiotics for pneumonia rounded with ephraim, all orders per ephraim
[2017-12-23 09:42] LABS: Lymphocytes % 6 % (10-50); Neutrophils % 94 % (42-76); Total Cells Counted 100
[2017-12-23 09:43] LABS: Hypochromasia 1+
[2017-12-23 09:45] LABS: Ovalocytes 1+
--- NOTE | 2017-12-23 10:23 | Consult Report ---
Addendum entered and electronically signed by KAVYA Rowland 12/23/17 13:34: CT shows evidence of subsegmental PE in left lower lobe. Pt is not a good candidate for intermediate anticoagulation due to recurrent falls. Recommend proceeding with IVC filter in AM. Continue lovenox for now. Will get LE venous doppler to look for DVT. Discussed with Dr. Xie. Original Note: History of Present Illness Consult date: 12/23/17 Requesting physician: Brian Atkinson Consult reason: shortness of breath Chief complaint: SOA, Edema Additional Medical History:: 1. Coronary artery disease A. History of coronary bypass grafting, 2006 B. History of non-STEMI with drug-eluting stent placed to saphenous vein graft to the RCA, 03/2016. C. Non-STEMI with additional drug-eluting stent placed to saphenous vein graft to RCA, 04/2017 D. ZAIRA to SVG to RCA, 08/20/2017 E. NSTEMI, 08/25/2017, with cardiac cath, The left main artery has a long eccentric 10-20% distal stenosis. The left anterior descending artery has a proximal 40-50% stenosis followed by additional 40% stenoses. The LAD is then occluded after 3 diagonal arteries and the first septal campus manager. The circumflex artery is a nondominant yet still large vessel which has proximal 40% mid vessel 40% stenoses distal 40% stenoses. The right coronary artery known to be proximally occluded. The [facility] ventriculogram reveals severe left ventricular dilatation with anterior wall akinesis with aneurysmal dilatation. Estimated ejection fraction 20%. The left ventricular end-diastolic pressure 20 mmHg. The saphenous vein graft to the circumflex artery is known to be ostially occluded. The saphenous vein graft to the distal dominant right coronary is widely patent with excellent flow down the graft and into the [place] vessel. 2. Cardiomyopathy, EF 20% at time of non-STEMI, 03/2015 A. AICD implantation, 04/2017, [place] B. Echo, 06/2017, Moderately enlarged left atrium, mildly dilated left ve ntricle, mild concentric left ventricular hypertrophy, visually estimated ejection fraction of 20-25% with multiple segmental wall motion abnormalities in the mid to distal septum, anterior, anteroapical, apical and anterolateral areas, grade 1 diastolic dysfunction seen with tissue Doppler evidence of raised left atrial pressure. Moderate aortic, mild mitral and tricuspid regurgitation, calculated right ventricular systolic pressure 45 mmHg consistent with moderate pulmonary hypertension. No significant pericardial effusion noted. C. Echo, 08/2017, EF 27% with mild to moderate and mild AR and RVSP of 35- 40 mm Hg. 3. Tobacco use A. Chronic obstructive pulmonary disease with home O2 use 4. Hypertension 5. Hyperlipidemia 6. New onset A. fib with RVR, 08/20/2017 A. CHADS-VASC score of 4, however he is a poor candidate for anticoagulation due to frequent falls. B. Cardioverted to NSR, 08/20/17 7. DM type 2 8. Possible PE, 12/22/[address] of chest A. Lovenox therapy started, 12/23/2017 History of present illness: 77-year-old white male with multiple medical problems including ischemic cardiomyopathy presented to the emergency department for several days history of shortness of breath and lower extremity edema. Patient states he was discharged home from the hospital on 12-14-17. Couple of days after that the patient was going to the bathroom when he developed sudden onset of chest tightness and pain with associated dizziness and shortness of breath. He did trip and fall but denies loss of consciousness or hitting his head. He states that shortness of breath and lower extremity edema persisted and even increased for a couple of days before coming in for evaluation and subsequently being admitted yesterday. CT scan of the chest shows possible pulmonary embolus. Patient has been started on Lovenox therapy and cardiology consulted for evaluation due to elevated CHADS-VASC score but patient is a high fall risk and has not been placed on anticoagulation in the past. Patient states his breathing and edema has improved with Lasix therapy started yesterday. EKG shows ventricular pacing with capture. Telemetry shows 1 brief 5 beat run of V. tach. [facility] History Medical History: Reports:: Chronic Obstructive Pulmonary Disease (COPD), Coronary Artery Disease, Hyperlipidemia, Internal Pacemaker, Myocardial Infarction Denies:: Cancer, Diabetes Mellitus Type 1, Diabetes Mellitus Type 2, MRSA, Seizures Other Medical History: Denies: Blood Transfusion Reaction Other Surgeries: Yes: Appendectomy, CABG, Cardiac Catheterization, Coronary Stent, Open Heart Surgery, Pacemaker, Other Amputation: No Fractures: No - *Social History Educational Level: Attended Grade School Smoking Status: Former smoker Tobacco Type: cigarettes # Packs/Day (cigarettes): 1 #Yrs smoked (if former smoker): 30 Alcohol Intake: never Alcohol Intake Frequency:: other Substance Use Type: denies use Occupational Status: retired Housing: house Household Members: spouse - Psychiatric History Expresses thoughts of harming self/others: None Suicide Plan Description: No Plan *Family Hx:: Unable to obtain Meds Home Medications Medication Instructions Recorded Confirmed Type furosemide 40 mg tablet 40 mg PO DAILY tab 06/11/17 12/22/17 History Aspirin [Aspirin 81mg EC Tab] 81 mg PO DAILY 08/26/17 12/22/17 History Carvedilol [Carvedilol 3.125mg Tab] 3.125 mg PO DAILY 12/22/17 12/22/17 History Fluticasone/Vilanterol [Breo 1 inh INHALATION DAILY 12/22/17 12/22/17 History Ellipta] predniSONE [Deltasone 10mg tablet] See Rx Instructions PO DIRECTED 12/22/17 12/22/17 History Allergies Allergy/AdvReac Type Severity Reaction Status Date / Time morphine [MORPHINE] Allergy Unknown Verified 12/21/17 08:13 Review of Systems - *Cardiovascular Reports chest pain, Reports shortness of breath, Reports shortness of breath with activity - *Respiratory Reports shortness of breath, Reports shortness of breath with activity - *Gastrointestinal Denies abdominal pain, Denies loose stools - *Genitourinary Denies blood in urine - *Musculoskeletal Reports joint pain, Reports back pain - *Neurologic Reports weakness, Denies abnormal movements, Denies headache(s) Exam Vital signs and Labs for Last 24 Hours: Temp Pulse Resp BP Pulse Ox 97.8 F 72 24 148/74 94 L 12/23/17 08:00 12/23/17 09:10 12/23/17 08:00 12/23/17 08:00 12/23/17 08:00 Laboratory Results - last 24 hr 12/22/17 15:38: VBG pH 7.35, VBG pCO2 68.1 H, VBG pO2 39.3, VBG HCO3 36.4 H, VBG Total CO2 38.5 H, VBG O2 Saturation 70.6 H, VBG Base Excess 10.7 H 12/22/17 16:00: WBC 15.2 H, RBC 3.90 L, Hgb 10.0 L, Hct 33.5 L, MCV 86.0, MCH 25.6 L, MCHC 29.8 L, RDW 17.4, Plt Count 389, MPV 7.2 L, Neut % (Auto) 92.2 H, Lymph % (Auto) 4.8 L, [place] % (Auto) 2.4, Eos % (Auto) 0.4, Baso % (Auto) 0.2, Neut # (Auto) 14.0 H, Lymph # (Auto) 0.7, [place] # (Auto) 0.4, Eos # (Auto) 0.1, Baso # (Auto) 0.0, Total Counted 100, Neutrophils % (Manual) 85 H, Lymphocytes % (Manual) 10, Monocytes % (Manual) 5, Platelet Estimate Normal, Hypochromasia 2+ 12/22/17 16:00: D-Dimer 1030 H* 12/22/17 16:00: Sodium 147 H, Potassium 4.9, Chloride 105, Carbon Dioxide 44 H*, Anion Gap 2.9 L, BUN 32 H, Creatinine 0.54 L, Estimated Creat Clear 62, Estimated GFR 148, Est GFR ( Amer) 179, Glucose 79, Calcium 8.3 L, Total Creatine Kinase 94, CK-MB (CK-2) 3.5 D, CK-MB (CK-2) Rel Index 3.7, Troponin I 0.04 12/22/17 16:00: Lactate 1.3 12/22/17 16:00: B-Natriuretic Peptide 2130 H 12/22/17 16:00: Urine Color Yellow, Urine Appearance Clear, Urine pH 6.5, Ur Specific [place] 1.010, Urine Protein Negative, Urine Glucose (UA) Negative, Urine Ketones Negative, Urine Blood Negative, Urine Nitrate Negative, Urine Bilirubin Negative, Urine Urobilinogen 0.2, Ur Leukocyte Esterase Negative, Urine RBC None, Urine WBC None, Ur Squamous Epith Cells Occasional, Urine Bacteria Trace 12/22/17 19:04: Specimen Source Left radial, O2 % 28%, ABG pH 7.42, ABG pCO2 54.8 H, ABG pO2 74.3 L, ABG HCO3 34.7 H, ABG Total CO2 36.4 H, ABG O2 Saturation 95, ABG Base Excess 10.3 H, Dustin Test Acceptable 12/23/17 06:05: WBC 8.8 D, RBC 3.47 L, Hct 29.4 L, MCV 84.9, MCH 25.7 L, MCHC 30.3 L, RDW 17.4, Plt Count 317, MPV 7.2 L, Neut % (Auto) 93.8 H, Lymph % (Auto) 4.4 L, [place] % (Auto) 1.8, Eos % (Auto) 0.1, Baso % (Auto) 0.0 L, Neut # (Auto) 8.2 H, Lymph # (Auto) 0.4 L, [place] # (Auto) 0.2, Eos # (Auto) 0.0, Baso # (Auto) 0.0, Total Counted 100, Neutrophils % (Manual) 94 H, Lymphocytes % (Manual) 6 L, Platelet Estimate Normal, Hypochromasia 1+, Poikilocytosis 1+, Ovalocytes 1+ 12/23/17 06:05: PT 10.0, INR 0.97 12/23/17 06:05: Sodium 143, Potassium 4.1, Chloride 104, Carbon Dioxide 42 H*, Anion Gap 1.1 L, BUN 30 H, Creatinine 0.59 L, Estimated Creat Clear 61, Estimated GFR 134, Est GFR ( Amer) 162, Glucose 152 H D, Calcium 7.9 L, Magnesium 2.2, Total Bilirubin 0.4, AST 10 L, ALT 30, Alkaline Phosphatase 62, Total Protein 5.8 L, Albumin 2.6 L, Globulin 3.2, Albumin/Globulin Ratio 0.8 L I & O for Last 24 hours: Intake & Output 12/20/17 12/21/17 12/22/17 12/23/17 11:59 11:59 11:59 11:59 Intake Total 485 / 485 Output Total 650 / 650 Balance -165 / -165 Weight 159 lb 3 oz - *Routine Neck Exam Present: supple. Absent: JVD, carotid bruit - *Routine Respiratory Exam Present: decreased breath sounds. Absent: accessory muscle use, rales, rhonchi, wheezes - *Routine Cardiovascular Exam Present: RRR. Absent: murmur, gallop, rubs - *Routine Abdominal Exam Present: soft. Absent: tenderness, distended, guarding - *Routine Extremities Exam Present: edema. Absent: calf tenderness - *Routine Neurological Exam Present: alert, oriented X3, moving all extremities Assessment and Plan (1) Pulmonary embolism Current visit: Yes Status: Acute Qualifiers: Pulmonary embolism type: other Chronicity: acute Acute cor pulmonale presence: with acute cor pulmonale Qualified Code(s): I26.09 - Other pulmonary embolism with acute cor pulmonale Category: Medical Code(s): I26.99 - Other pulmonary embolism without acute cor pulmonale (2) Atrial fibrillation with RVR Current visit: No Status: Acute Category: Medical Code(s): I48.91 - Unspecified atrial fibrillation (3) Biventricular CHF (congestive heart failure) Current visit: No Status: Acute Category: Medical Code(s): I50.82 - Biventricular heart failure (4) Dizziness Current visit: No Status: Acute Category: Medical Code(s): R42 - Dizziness and giddiness (5) CAD (coronary artery disease) Current visit: No Status: Chronic Qualifiers: Coronary Disease-Associated Artery/Lesion type: [place] artery [place] vs. transplanted heart: [place] heart Associated angina: with unstable angina Qualified Code(s): I25.110 - Atherosclerotic heart disease of [place] coronary artery with unstable angina pectoris Category: Medical Code(s): I25.10 - Atherosclerotic heart disease of [place] coronary artery without angina pectoris (6) Electrocardiogram abnormal Current visit: No Status: Chronic Category: Medical Code(s): R94.31 - Abnormal electrocardiogram [ECG] [EKG] (7) Hyperlipidemia Current visit: No Status: Chronic Qualifiers: Hyperlipidemia type: other hyperlipidemia Qualified Code(s): E78.4 - Other hyperlipidemia Category: Medical Code(s): E78.5 - Hyperlipidemia, unspecified (8) Automatic implantable cardiac defibrillator in situ Current visit: No Status: Chronic Category: Medical Code(s): Z95.810 - Presence of automatic (implantable) cardiac defibrillator - Assessment and plan all Dx Assessment and Plan for all problems:: 1. Regarding polyp possible pulmonary embolism, the patient is undergoing a second CAT scan to try to definitively say whether he has a PE or not. Continue anticoagulation with Lovenox therapy at this time. If the patient has a pulmonary embolus then consideration for a Kirsten filter will be discussed with the patient. 2. Continue diuretics, digoxin and entresto for congestive heart failure with elevated BNP and lower extremity edema. Diuretic therapy to be tailored according to renal function. 3. We will change Coreg therapy to metoprolol due to history of V. tach and SVT.
--- NOTE | 2017-12-23 15:13 | Non-Invasive Vascular Report ---
"Venous Exam Indications: 415.19 Other pulmonary embolism and infarction. IMPRESSIONS 1. No evidence of deep or superficial vein thrombosis involving the right lower extremity 2. No evidence of deep or superficial vein thrombosis involving the left lower extremity Complete lower extremity venous duplex evaluation. Doppler flow study including spectral analysis, color and lanier scale imaging. Location: Bedside. Patient status: Inpatient. Tables: Venous flow and imaging: + +-------+ + |Location |Overall|Flow properties | + +-------+ + |Right common femoral |Patent |Normal phasicity; spontaneous; | | | |normal augmentation; compressible| + +-------+ + |Right saphenofemoral junction|Patent |Compressible | + +-------+ + |Right profunda femoral |Patent |Compressible | + +-------+ + |Right femoral |Patent |Normal phasicity; spontaneous; | | | |normal augmentation; compressible| + +-------+ + |Right greater saphenous |Patent |Normal phasicity; spontaneous; | | | |normal augmentation; compressible| + +-------+ + |Right popliteal |Patent |Normal phasicity; spontaneous; | | | |normal augmentation; compressible| + +-------+ + |Right posterior tibial |Patent |Compressible | + +-------+ + |Right peroneal |Patent |Compressible | + +-------+ + |Right gastrocnemius |Patent |Compressible | + +-------+ + |Right soleal |Patent |Compressible | + +-------+ + |Left common femoral |Patent |Normal phasicity; spontaneous; | | | |normal augmentation; compressible| + +-------+ + |Left saphenofemoral junction |Patent |Compressible | + +-------+ + |Left profunda femoral |Patent |Compressible | + +-------+ + |Left femoral |Patent |Normal phasicity; spontaneous; | | | |normal augmentation; compressible| + +-------+ + |Left greater saphenous |Patent |Normal phasicity; spontaneous; | | | |normal augmentation; compressible| + +-------+ + |Left popliteal |Patent |Normal phasicity; spontaneous; | | | |normal augmentation; compressible| + +-------+ + |Left posterior tibial |Patent |Compressible | + +-------+ + |Left peroneal |Patent |Compressible | + +-------+ + |Left gastrocnemius |Patent |Compressible | + +-------+ + |Left soleal |Patent |Compressible | + +-------+ + (Report amended ) Electronically signed by: Dustin Beard [id number]"
--- NOTE | 2017-12-23 16:07 | Cardiology Report ---
PROCEDURE: 2-D M-mode and color Doppler study INDICATIONS FOR THE TEST: Chest pain COPD+ Heart Murmur Tobacco Smoking+ Palpitations Fatigue Syncope Edema Hypertension Diabetes Mellitus Rheumatic Fever SOB+BARBOUR+Obesity Hyperlipidemia+ Family History HD Additional History chf, PE, CAD, pacemaker, CABG, cardiac stents, bilateral pleural effusions by CT chest PATIENT INFORMATION HEIGHT: 69 WEIGHT: 159 GENDER: Male B/P: 110/58 2-D/M-MODE INTERPRETATION: 2-D MEASUREMENTS OBSERVED VALUES IN CMS Right Ventricular Dimension (RVDd) 3.2 Interventricular Septum (Thickness)(IVsd) 0.9 Left Ventricular Internal Dimensions(LVIDd) 6.2 Left Ventricular Posterior Wall (Thickness)(LVPWd) 0.9 Aortic Root 3.0 Aortic Cusp Separation 1.6 Left Atrial Dimensions (LAD) 3.8 2D 1. Left atrium is mildly enlarged, left ventricle is mildly dilated, there is mild concentric left ventricular hypertrophy, visually estimated ejection fraction approximately 30-35%, there is marked hypo to akinesis involving the inferior, inferobasal, posterobasal and inferoseptal wall. 2. The right atrium and right ventricle are mildly enlarged with normal contractility., There is a pacemaker lead seen in the right atrium and right ventricle. 3. The aortic valve is thickened and calcified with restriction the leaflet mobility. 4. The mitral and tricuspid valve leaflets are minimally thickened. 5. The pulmonic valve is poorly visualized. 6. No significant pericardial effusion noted. DOPPLER INTERROGATION: Doppler interrogation of the aortic, mitral and tricuspid valvular presence of mild aortic, mild mitral and tricuspid regurgitation, tricuspid regurgitation jet velocity is insufficient for calculation of the right ventricular systolic pressure. Grade 2 diastolic dysfunction seen with tissue Doppler evidence of raised left atrial pressure. CONCLUSION: 1. Biatrial enlargement, mildly dilated left ventricle, mild concentric left ventricular hypertrophy, visually estimated ejection fraction 30-35% with segmental wall motion abnormality described above, grade 2 diastolic dysfunction seen with tissue Doppler evidence of raised left atrial pressure. 2. Mildly enlarged right ventricle with normal contractility. 3. Mild aortic, mild mitral and tricuspid regurgitation 4. No significant pericardial effusion noted.
--- NOTE | 2017-12-24 07:31 | Progress Note ---
Addendum entered and electronically signed by KAVYA Rowland 12/24/17 09:00: Clarification: Pt is not a longterm anticoagulation candidate due to high fall risk, however, after the IVC filter is placed, he should be treated for the current PE with anticoagulation for 3 months. While he is on Xarelto, we recommend stopping Aspirin and just continue plavix for history of stent placement in 08/2017. Original Note: Subjective Date: 12/24/17 Time: 07:28 Principal diagnosis: PE, SOA Interval history: 77 yo WM in bed in NAD. Sleeping initially. No complaints of chest pain and states he is breathing better today after additional lasix yesterday. No arrhythmias noted on telemetry. Exam Vital signs and Labs for Last 24 Hours: Temp Pulse Resp BP Pulse Ox 98.2 F 69 14 143/53 96 12/24/17 04:00 12/24/17 05:59 12/24/17 04:00 12/24/17 04:00 12/24/17 04:00 Laboratory Results - last 24 hr 12/23/17 06:05: Hgb 9.0 L, Total Counted 100, Neutrophils % (Manual) 94 H, Lymphocytes % (Manual) 6 L, Platelet Estimate Normal, Hypochromasia 1+, Poikilocytosis 1+, Ovalocytes 1+ 12/23/17 10:23: Lactate 3.3 H 12/23/17 15:14: Lactate 1.6 I & O for Last 24 hours: Intake & Output 12/21/17 12/22/17 12/23/17 12/24/17 11:59 11:59 11:59 11:59 Intake Total 485 / 485 420 / 420 Output Total 650 / 650 2200 / 2200 Balance -165 / -165 -1780 / -1780 Weight 159 lb 3 oz 150 lb Microbiology Reports for the Last 24 Hours: Microbiology 12/23/17 07:40 Sputum - Expectorated Sputum Gram Stain - Final - *Routine Respiratory Exam Present: decreased breath sounds, rhonchi. Absent: wheezes - *Routine Cardiovascular Exam Present: RRR. Absent: murmur, gallop, rubs - *Routine Extremities Exam Absent: edema, calf tenderness - *Routine Neurological Exam Present: alert, oriented X3, moving all extremities Progress Note: A&P (1) Pulmonary embolism Status: Acute Current Visit: Yes (2) Atrial fibrillation with RVR Status: Acute Current Visit: No (3) Biventricular CHF (congestive heart failure) Status: Acute Current Visit: No (4) Dizziness Status: Acute Current Visit: No (5) CAD (coronary artery disease) Status: Chronic Current Visit: No (6) Electrocardiogram abnormal Status: Chronic Current Visit: No (7) Hyperlipidemia Status: Chronic Current Visit: No (8) Automatic implantable cardiac defibrillator in situ Status: Chronic Current Visit: No Assessment and Plan for All Diagnoses:: Continue current meds. Pt will have IVC filter placed today due to PE and poor candidate for anticoagulation due to falls and recurrent anemia/blood transfusion.
--- NOTE | 2017-12-24 12:11 | Progress Note ---
Internal Medicine - PN: Subj *Date: 12/24/17 *Time: 08:30 Interval history: doing better from pul status and will do venous filter today and then 3 month xarelto - Exam Vital signs and Labs for Last 24 Hours: Temp Pulse Resp BP Pulse Ox 97.8 F 66 18 110/64 95 12/24/17 08:00 12/24/17 08:54 12/24/17 08:00 12/24/17 08:00 12/24/17 08:00 Laboratory Results - last 24 hr 12/23/17 15:14: Lactate 1.6 I & O for Last 24 hours: Intake & Output 12/22/17 12/23/17 12/24/17 12/25/17 11:59 11:59 11:59 11:59 Intake Total 485 / 485 420 / 420 Output Total 650 / 650 2300 / 2300 Balance -165 / -165 -1880 / -1880 Weight 159 lb 3 oz 150 lb Microbiology Reports for the Last 24 Hours: Microbiology 12/23/17 07:40 Sputum - Expectorated Sputum Gram Stain - Final 12/23/17 07:40 Sputum - Expectorated Sputum Sputum Culture - Preliminary - Constitutional no acute distress, thin - *Routine HEENT Exam Head: Present: normocephalic Eye: Present: EOMI, PERRL ENT: Present: mucous membranes dry - *Routine Neck Exam Present: supple - *Routine Respiratory Exam Present: decreased breath sounds - *Routine Cardiovascular Exam Present: RRR, murmur - *Routine Abdominal Exam Present: soft - *Routine Extremities Exam Absent: calf tenderness - *Routine Skin Exam Present: intact - *Routine Neurological Exam Present: alert, CN II-XII intact - Routine Psychiatric Exam Present: normal affect Assessment and Plan (1) Pulmonary embolism Current visit: Yes Status: Acute Qualifiers: Pulmonary embolism type: other Chronicity: acute Acute cor pulmonale presence: with acute cor pulmonale Qualified Code(s): I26.09 - Other pulmonary embolism with acute cor pulmonale Category: Medical Code(s): I26.99 - Other pulmonary embolism without acute cor pulmonale (2) Atrial fibrillation with RVR Current visit: No Status: Acute Category: Medical Code(s): I48.91 - Unspecified atrial fibrillation (3) Biventricular CHF (congestive heart failure) Current visit: No Status: Acute Category: Medical Code(s): I50.82 - Biventricular heart failure (4) Dizziness Current visit: No Status: Acute Category: Medical Code(s): R42 - Dizziness and giddiness (5) CAD (coronary artery disease) Current visit: No Status: Chronic Qualifiers: Coronary Disease-Associated Artery/Lesion type: [place] artery [place] vs. transplanted heart: [place] heart Associated angina: with unstable angina Qualified Code(s): I25.110 - Atherosclerotic heart disease of [place] coronary artery with unstable angina pectoris Category: Medical Code(s): I25.10 - Atherosclerotic heart disease of [place] coronary artery without angina pectoris (6) Electrocardiogram abnormal Current visit: No Status: Chronic Category: Medical Code(s): R94.31 - Abnormal electrocardiogram [ECG] [EKG] (7) Hyperlipidemia Current visit: No Status: Chronic Qualifiers: Hyperlipidemia type: other hyperlipidemia Qualified Code(s): E78.4 - Other hyperlipidemia Category: Medical Code(s): E78.5 - Hyperlipidemia, unspecified (8) Automatic implantable cardiac defibrillator in situ Current visit: No Status: Chronic Category: Medical Code(s): Z95.810 - Presence of automatic (implantable) cardiac defibrillator (9) COPD exacerbation Current visit: Yes Status: Acute Category: Medical Code(s): J44.1 - Chronic obstructive pulmonary disease with (acute) exacerbation
[2017-12-24 12:38] LABS: Eosinophils % 0.2 % (0.1-12.0); Hematocrit 31.9 % (42.0-52.0); Hemoglobin 9.4 g/dL (14.1-18.0); Lymphocytes # 0.5 K/mm3 (0.7-4.5); Lymphocytes % 3.7 K/mm3 (10-50); Mean Corpuscular HGB Conc 29.6 g/dL (31.8-35.4); Mean Corpuscular Hemoglobin 25.5 pg (27.0-31.2); Mean Platelet Volume 7.1 fl (7.4-10.4); Monocytes # 0.4 K/mm3 (0.1-1.0); Monocytes % 2.9 % (1.7-9.3); Neutrophils # 11.7 K/mm3 (1.8-7.8); Neutrophils % 93.2 % (37.0-80.0); Platelet Count 308 K/mm3 (142-424); Red Cell Distribution Width 17.3 % (11.5-17.5); White Blood Count 12.5 K/mm3 (4.8-10.8)
[2017-12-24 16:10] LABS: Lymphocytes % 5 % (10-50); Monocytes % 1 % (2-9); Neutrophils % 94 % (42-76); Total Cells Counted 100
[2017-12-24 16:11] LABS: Hypochromasia 1+
--- NOTE | 2017-12-25 08:39 | Progress Note ---
Internal Medicine - PN: Subj *Date: 12/25/17 *Time: 08:36 Interval history: pt with slow but steady improvement - gram neg soumya Exam Vital signs and Labs for Last 24 Hours: Temp Pulse Resp BP Pulse Ox 97.7 F 79 20 115/56 97 12/25/17 08:00 12/25/17 08:00 12/25/17 08:00 12/25/17 08:00 12/25/17 08:00 Laboratory Results - last 24 hr 12/24/17 12:23: WBC 12.5 H D, RBC 3.70 L, Hgb 9.4 L, Hct 31.9 L, MCV 86.0, MCH 25.5 L, MCHC 29.6 L, RDW 17.3, Plt Count 308, MPV 7.1 L, Neut % (Auto) 93.2 H, Lymph % (Auto) 3.7 L, Wolfe % (Auto) 2.9, Eos % (Auto) 0.2, Baso % (Auto) 0.0 L, Neut # (Auto) 11.7 H, Lymph # (Auto) 0.5 L, Wolfe # (Auto) 0.4, Eos # (Auto) 0.0, Baso # (Auto) 0.0, Total Counted 100, Neutrophils % (Manual) 94 H, Lymphocytes % (Manual) 5 L, Monocytes % (Manual) 1 L, Platelet Estimate Normal, Hypochromasia 1+ I & O for Last 24 hours: Intake & Output 12/22/17 12/23/17 12/24/17 12/25/17 11:59 11:59 11:59 11:59 Intake Total 585 / 585 420 / 420 1010 / 1010 Output Total 650 / 650 2300 / 2300 475 / 475 Balance -65 / -65 -1880 / -1880 535 / 535 Weight 159 lb 3 oz 150 lb 149 lb 8 oz Microbiology Reports for the Last 24 Hours: Microbiology 12/23/17 07:40 Sputum - Expectorated Sputum Gram Stain - Final 12/23/17 07:40 Sputum - Expectorated Sputum Sputum Culture - Preliminary Gram Negative Rods 12/22/17 16:03 Blood Blood Culture - Preliminary NO GROWTH AFTER 48 HOURS 12/22/17 16:03 Blood Blood Culture - Preliminary NO GROWTH AFTER 48 HOURS - Constitutional no acute distress - *Routine HEENT Exam Head: Present: normocephalic Eye: Present: EOMI, PERRL ENT: Present: mucous membranes dry - *Routine Neck Exam Present: supple - *Routine Respiratory Exam Present: decreased breath sounds, wheezes - *Routine Cardiovascular Exam Present: RRR, murmur, S4 - *Routine Abdominal Exam Present: soft - *Routine Extremities Exam Absent: calf tenderness - *Routine Skin Exam Present: intact - *Routine Neurological Exam Present: alert, oriented X3, CN II-XII intact - Routine Psychiatric Exam Present: normal affect Assessment and Plan (1) Pulmonary embolism Current visit: Yes Status: Acute Qualifiers: Pulmonary embolism type: other Chronicity: acute Acute cor pulmonale presence: with acute cor pulmonale Qualified Code(s): I26.09 - Other pulmonary embolism with acute cor pulmonale Category: Medical Code(s): I26.99 - Other pulmonary embolism without acute cor pulmonale (2) Atrial fibrillation with RVR Current visit: No Status: Acute Category: Medical Code(s): I48.91 - Unspecified atrial fibrillation (3) Biventricular CHF (congestive heart failure) Current visit: No Status: Acute Category: Medical Code(s): I50.82 - Biventricular heart failure (4) Dizziness Current visit: No Status: Acute Category: Medical Code(s): R42 - Dizziness and giddiness (5) CAD (coronary artery disease) Current visit: No Status: Chronic Qualifiers: Coronary Disease-Associated Artery/Lesion type: [place] artery [place] vs. transplanted heart: [place] heart Associated angina: with unstable angina Qualified Code(s): I25.110 - Atherosclerotic heart disease of [place] coronary artery with unstable angina pectoris Category: Medical Code(s): I25.10 - Atherosclerotic heart disease of [place] coronary artery without angina pectoris (6) Electrocardiogram abnormal Current visit: No Status: Chronic Category: Medical Code(s): R94.31 - Abnormal electrocardiogram [ECG] [EKG] (7) Hyperlipidemia Current visit: No Status: Chronic Qualifiers: Hyperlipidemia type: other hyperlipidemia Qualified Code(s): E78.4 - Other hyperlipidemia Category: Medical Code(s): E78.5 - Hyperlipidemia, unspecified (8) Automatic implantable cardiac defibrillator in situ Current visit: No Status: Chronic Category: Medical Code(s): Z95.810 - Presence of automatic (implantable) cardiac defibrillator (9) COPD exacerbation Current visit: Yes Status: Acute Category: Medical Code(s): J44.1 - Chronic obstructive pulmonary disease with (acute) exacerbation
--- NOTE | 2017-12-26 11:23 | Progress Note ---
Internal Medicine - PN: Subj *Date: 12/26/17 *Time: 11:22 Exam Vital signs and Labs for Last 24 Hours: Temp Pulse Resp BP Pulse Ox 97.8 F 85 20 118/52 92 L 12/26/17 07:53 12/26/17 08:15 12/26/17 07:53 12/26/17 07:53 12/26/17 08:16 I & O for Last 24 hours: Intake & Output 12/23/17 12/24/17 12/25/17 12/26/17 23:59 23:59 23:59 23:59 Intake Total 880 / 880 580 / 580 1780 / 1780 240 / 240 Output Total 2550 / 2550 250 / 250 675 / 675 200 / 200 Balance -1670 / -1670 330 / 330 1105 / 1105 40 / 40 Weight 72.206 kg 68.039 kg 67.812 kg 67.358 kg Microbiology Reports for the Last 24 Hours: Microbiology 12/23/17 07:40 Sputum - Expectorated Sputum Gram Stain - Final 12/23/17 07:40 Sputum - Expectorated Sputum Sputum Culture - Final Gram Negative Rods Assessment and Plan (1) Pulmonary embolism Current visit: Yes Status: Acute Qualifiers: Pulmonary embolism type: other Chronicity: acute Acute cor pulmonale presence: with acute cor pulmonale Qualified Code(s): I26.09 - Other pulmonary embolism with acute cor pulmonale Category: Medical Code(s): I26.99 - Other pulmonary embolism without acute cor pulmonale (2) Atrial fibrillation with RVR Current visit: No Status: Acute Category: Medical Code(s): I48.91 - Unspecified atrial fibrillation (3) Biventricular CHF (congestive heart failure) Current visit: No Status: Acute Category: Medical Code(s): I50.82 - Biventricular heart failure (4) Dizziness Current visit: No Status: Acute Category: Medical Code(s): R42 - Dizziness and giddiness (5) CAD (coronary artery disease) Current visit: No Status: Chronic Qualifiers: Coronary Disease-Associated Artery/Lesion type: [place] artery [place] vs. transplanted heart: [place] heart Associated angina: with unstable angina Qualified Code(s): I25.110 - Atherosclerotic heart disease of [place] coronary artery with unstable angina pectoris Category: Medical Code(s): I25.10 - Atherosclerotic heart disease of [place] coronary artery without angina pectoris (6) Electrocardiogram abnormal Current visit: No Status: Chronic Category: Medical Code(s): R94.31 - Abnormal electrocardiogram [ECG] [EKG] (7) Hyperlipidemia Current visit: No Status: Chronic Qualifiers: Hyperlipidemia type: other hyperlipidemia Qualified Code(s): E78.4 - Other hyperlipidemia Category: Medical Code(s): E78.5 - Hyperlipidemia, unspecified (8) Automatic implantable cardiac defibrillator in situ Current visit: No Status: Chronic Category: Medical Code(s): Z95.810 - Presence of automatic (implantable) cardiac defibrillator (9) COPD exacerbation Current visit: Yes Status: Acute Category: Medical Code(s): J44.1 - Chronic obstructive pulmonary disease with (acute) exacerbation The patient's infection will respond to the chosen ABx?: Yes Is the patient receiving the right drug, dose, and route?: Yes Could a more targeted ABx be ordered?: Yes (CURRENTLY ON CEFEPIME AND LEVOFLOXACIN. RECOMMENDED SWITCH TO BACTRIM)
--- NOTE | 2017-12-26 14:20 | Discharge Summary ---
General - General Admission date:: 12/23/17 Discharge date: 12/26/17 HPI HPI: Patient was admitted on 12/24/17 after presenting to the ED with increased SOA, swelling. Was treated for pneumonia with Levaquin and Cefepime. Culture returned this am with intermediate resistance to Levaquin and sensitivity to Bactrim. Patient also had recurrent PE while admitted. Not currently on termite treater helper anti coagulation due to fall risk. IVC filter was placed and cardiolology recommended Xarelto for 3 months as well as Plavix due to recent stenting in August. Recommended to D/C ASA during this time. Is on Entresto for CHF and has been diuresed during this stay. Breathing has improved. Recommended changing to metoprolol from Coreg due to SVT. Hospital Course Hospital Course: Patient admitted on 12/24/17 with SOA, swelling. Had been previously admitted for pneumonia and discharged. Diagnosed with PE as well and IVC filter was placed. Culture sensitive to Bactrim after being treated with Levaquin and Cefepime. Breathing improved with antibiotics, steroids, diuresis. Objective Vital signs: Temp Pulse Resp BP Pulse Ox 97.8 F 85 20 118/52 92 L 12/26/17 07:53 12/26/17 11:53 12/26/17 07:53 12/26/17 07:53 12/26/17 08:16 no acute distress - *Routine HEENT Exam Head: Present: normocephalic, atraumatic Eye: Present: PERRL ENT: Present: mucous membranes moist, nares patent, TM's clear bilaterally - *Routine Neck Exam Present: supple, full ROM, tenderness - Routine Chest/Breast/Axilla Exam Chest wall: Absent: tenderness - *Routine Respiratory Exam Present: diminished air movement. Absent: accessory muscle use, respiratory distress - *Routine Cardiovascular Exam Present: irregularly irregular. Absent: murmur - *Routine Abdominal Exam Present: soft - *Routine Extremities Exam Present: edema. Absent: cyanosis, clubbing - *Routine Skin Exam Present: intact, dry. Absent: cyanosis - *Routine Neurological Exam Present: alert, oriented X3 - Routine Psychiatric Exam Present: normal affect Results Labs on day of discharge: Preliminary micro results at discharge 12/22/17 16:03 Blood Culture - Preliminary Blood NO GROWTH AFTER 48 HOURS 12/22/17 16:03 Blood Culture - Preliminary Blood NO GROWTH AFTER 48 HOURS DS: Diagnosis - Discharge Diagnosis (1) Pulmonary embolism Status: Acute (2) Atrial fibrillation with RVR Status: Acute (3) Biventricular CHF (congestive heart failure) Status: Acute (4) Dizziness Status: Acute (5) CAD (coronary artery disease) Status: Chronic (6) Electrocardiogram abnormal Status: Chronic (7) Hyperlipidemia Status: Chronic (8) Automatic implantable cardiac defibrillator in situ Status: Chronic (9) COPD exacerbation Status: Acute Discharge Plan - Patient Discharge Instructions ACTIVITY: Continue current activity DIET: continue same diet - Follow up Plan Follow up with: Erik Xie MD [Staff Physician] - Brian Atkinson MD [Family Provider] - Disposition: Home, Self-Long Term Medications: Home Medications Medication Instructions Recorded Confirmed Type furosemide 40 mg tablet 40 mg PO DAILY tab 06/11/17 12/22/17 History Fluticasone/Vilanterol [Breo 1 inh INHALATION DAILY 12/22/17 12/22/17 History Ellipta] Prescriptions/Medication Reconciliation: New [place]ub[place]ril/Valsartan [Entresto 24 mg-26 mg Tablet] 1 each PO DAILY 30 Days #30 tablet Metoprolol Tartrate [Lopressor 25mg tablet] 25 mg PO BID 30 Days #60 tablet Clopidogrel Bisulfate [Plavix 75mg Tab] 75 mg PO DAILY 30 Days #30 tablet Rivaroxaban [Xarelto 15mg tablet] 15 mg PO BID 21 Days #42 tablet Sulfamethoxazole/Trimethoprim [Bactrim DS tablet] 1 each PO BID 10 Days #20 tablet Discontinued Aspirin [Aspirin 81mg EC Tab] 81 mg PO DAILY predniSONE [Deltasone 10mg tablet] See Rx Instructions PO DIRECTED Carvedilol [Carvedilol 3.125mg Tab] 3.125 mg PO DAILY No Action furosemide 40 mg tablet 40 mg PO DAILY tab tamsulosin 0.4 mg capsule 0.4 mg PO DAILY #90 cap Digoxin 125 mcg PO DAILY #30 tablet Nicotine [Nicoderm 21mg/24hr patch] 21 mg TD DAILYP PRN #30 patch.td24 PRN Reason: Nicotine Cravings Fluticasone/Vilanterol [Breo Ellipta] 1 inh INHALATION DAILY - Additional Information Additional Information: Stop Aspirin as recommended by cardiology. Xarelto and Plavix as recommended by cardiology. Metoprolol instead of Coreg per their recommendation. Bactrim DS X 10 days based on culture results. F/U with Anne-Marie and our office this week.
== END 2017-12-26 14:31 | disposition home or self-care (01) ==
LOC: ER 14:45 → 2ND 14:45
PROVIDERS: ADMIT Emergency Medicine; ATTEND Emergency Medicine